=== PATIENT | male | born 1975 | race Caucasian/White ===

== ENCOUNTER 2018-08-04 14:59 | Emergency (ER) | payer MEDICAID ==
[2018-08-04 15:19] VITALS: BP 132/78
--- NOTE | 2018-08-04 15:53 | ER Document Report ---
ED General - General Chief Complaint: Congestion Stated Complaint: COUGH,CONGESTION,BACK PAIN Time Seen by Provider: 08/04/18 15:38 Notes: 42-year-old male here with complaints of cough productive of green sputum subjective fevers chills and low back pain (bilateral) ongoing for the past few days. He states that he feels weak and has minimal appetite due to being sick. His friend is sick with similar symptoms and he feels he may have contracted the illness from his friend. He has a history of walking pneumonia and also states that this feels very similar. He is a former smoker and does not currently smoke. TRAVEL OUTSIDE OF THE [place] IN LAST 30 DAYS: No - Related Data Allergies/Adverse Reactions: ketorolac [From Toradol] Allergy (Verified 08/04/18 15:17) Penicillins Allergy (Verified 08/04/18 15:17) tramadol Allergy (Verified 08/04/18 15:17) acetaminophen [From Tylenol] Adverse Reaction (Verified 08/04/18 15:17) Past Medical History - Social History Smoking Status: Former Smoker Family History: Reviewed & Not Pertinent Review of Systems - Review of Systems Notes: See history of present illness for pertinent positive review of systems; otherwise all review of systems have been reviewed and are negative Physical Exam - Vital signs Vitals: Temp Pulse Resp BP Pulse Ox 98.5 F 79 16 132/78 H 98 08/04/18 15:18 08/04/18 15:18 08/04/18 15:18 08/04/18 15:18 08/04/18 15:18 - Notes Notes: PHYSICAL EXAMINATION: GENERAL: Well-appearing and in no acute distress. HEAD: Atraumatic, normocephalic. EYES: Pupils equal round and reactive to light, extraocular movements intact, sclera anicteric, conjunctiva are normal. ENT: nares patent, oropharynx minimal erythema without tonsillar swelling exudates. Moist mucous membranes. NECK: Normal range of motion, supple without lymphadenopathy LUNGS: CTAB and equal. No wheezes rales or rhonchi. HEART: Regular rate and rhythm without murmurs ABDOMEN: Soft, no tenderness. No facial grimacing/wincing upon palpation. No guarding, no rebound. EXTREMITIES: Normal range of motion, no pitting edema. No cyanosis. NEUROLOGICAL: Cranial nerves grossly intact. Normal sensory/motor exams. PSYCH: Normal mood, normal affect. SKIN: Warm, Dry, normal turgor, no rashes or lesions noted Course - Re-evaluation Re-evalutation: 08/04/18 15:48 MEDICAL DECISION MAKING: Concern for upper respiratory infection, most likely viral Given his history of walking pneumonia, and the productive cough, will prescribe azithromycin Tessalon Instructed patient on fever control with Tylenol and/or (if applicable) Motrin Also discussed keeping hydrated with water or Gatorade/Pedialyte Instructed follow-up PCP next day or few Patient understands and agrees to the plan of care - Vital Signs Vital signs: Temp Pulse Resp BP Pulse Ox 98.5 F 79 16 132/78 H 98 08/04/18 15:18 08/04/18 15:18 08/04/18 15:18 08/04/18 15:18 08/04/18 15:18 Discharge - Discharge Clinical Impression: Acute URI Condition: Good Disposition: HOME, SELF-CARE Additional Instructions: You were seen in the emergency department at [facility]. You likely have an upper respiratory infection, most likely viral, however finish the antibiotics to prevent any bacterial infection. Use Motrin and/or Tylenol for fever control. You may use saline nasal spray for stuffy nose. Stay hydrated. Please followup with your primary physician in the next few days for further management/evaluation. Please return to the emergency department for worsening of symptoms or any symptom that you deem to be concerning or life- threatening. Thank you for allowing us to be part of your care. This is your school/work note for your Emergency Department evaluation today. Prescriptions: Benzonatate [Tessalon Perles 100 mg Capsule] 100 mg PO Q8HP PRN #20 capsule PRN Reason: Azithromycin [Zithromax 250 mg Tablet] 250 mg PO ASDIR PRN #6 tablet PRN Reason:
== END 2018-08-04 15:53 | disposition home or self-care (01) ==
LOC: ER 14:59
DX: J06.9 Acute upper respiratory infection, unspecified (principal); M54.9 Dorsalgia, unspecified; Z88.0 Allergy status to penicillin; Z88.6 Allergy status to analgesic agent
CPT/HCPCS: 99283

== ENCOUNTER 2018-08-04 16:39 | Emergency (ER) | payer MEDICAID ==
[2018-08-04] MEDS ORDERED: NORMAL SALINE 1000 ML 1,000 ML IV ONE (20:10)
[2018-08-04] MEDS ORDERED: ONDANSETRON HCL INJ/PF 4 MG/2 ML SDV IV ONE (20:11)
--- NOTE | 2018-08-04 20:15 | ER Document Report ---
ED General - General Chief Complaint: Chest Pain Stated Complaint: CHEST PAIN Time Seen by Provider: 08/04/18 19:58 Notes: Patient is a 42-year-old male that comes to the emergency department for chief complaint of productive cough and hurting all over for the past 2 days. He states he is also been lightheaded. He states he was seen in triage, discharged with azithromycin and Tessalon for possible pneumonia, he states that when he was leaving he passed out and woke up on his back. He states after the fall he has a lot of pain in his left hip area and it hurts to straighten out his leg. He denies hitting his head or headache. When I ask he denies specific chest pain, states that he just hurts all over. He states he is a former smoker, denies alcohol, denies recreational drugs. He states that he thinks he is dehydrated because he has frequent diarrhea episodes which are ongoing. Past medical history of cholecystectomy, kidney stones, walking pneumonia. Denies medical history otherwise. TRAVEL OUTSIDE OF THE [place] IN LAST 30 DAYS: No - Related Data Allergies/Adverse Reactions: ketorolac [From Toradol] Allergy (Verified 08/04/18 15:17) Penicillins Allergy (Verified 08/04/18 15:17) tramadol Allergy (Verified 08/04/18 15:17) acetaminophen [From Tylenol] Adverse Reaction (Verified 08/04/18 15:17) Past Medical History - General Information source: Patient - Social History Smoking Status: Never Smoker Chew tobacco use (# tins/day): No Frequency of alcohol use: Occasional Drug Abuse: None Lives with: Family Family History: Reviewed & Not Pertinent Patient has suicidal ideation: No Patient has homicidal ideation: No Pulmonary Medical History: Reports: Hx Asthma Endocrine Medical History: Reports: Hx Diabetes Mellitus Type 2 Renal/ Medical History: Denies: Hx Peritoneal Dialysis Past Surgical History: Reports: Hx Cholecystectomy, Hx Orthopedic Surgery Review of Systems - Review of Systems Constitutional: See HPI EENT: See HPI Cardiovascular: See HPI Respiratory: See HPI Gastrointestinal: No symptoms reported Genitourinary: No symptoms reported Male Genitourinary: No symptoms reported Musculoskeletal: See HPI Skin: No symptoms reported Hematologic/Lymphatic: No symptoms reported Neurological/Psychological: See HPI Physical Exam - Vital signs Vitals: Temp Pulse Resp BP Pulse Ox 98.4 F 74 20 133/80 H 98 08/04/18 16:52 08/04/18 16:52 08/04/18 16:52 08/04/18 16:52 08/04/18 16:52 - Notes Notes: GENERAL: Alert, interacts well. Slightly disheveled. HEAD: Normocephalic, atraumatic. EYES: Pupils equal, round, and reactive to light. Extraocular movements intact. ENT: Oral mucosa moist, tongue midline. Oropharynx unremarkable. Airway patent. Mild sinus congestion, no nasal septal hematoma, TM's intact. NECK: Full range of motion. Supple. Trachea midline. LUNGS: Clear to auscultation bilaterally, no wheezes, rales, or rhonchi. No respiratory distress. HEART: Regular rate and rhythm. No murmur ABDOMEN: Soft, non-tender. Non-distended. Bowel sounds present in all 4 quadrants. GENITOURINARY: Deferred EXTREMITIES: Moves all 4 extremities spontaneously. No edema, normal radial and dorsalis pedis pulses bilaterally. No cyanosis. Complains with palpation over the left hip and proximal femur. No swelling or signs of trauma. BACK: no cervical, thoracic, lumbar midline tenderness. No saddle anesthesia, normal distal neurovascular exam. NEUROLOGICAL: Alert and oriented x3. Normal speech. [cranial nerves II through XII grossly intact]. PSYCH: Normal affect, normal mood. SKIN: Warm, dry, normal turgor. No rashes or lesions noted. Course - Re-evaluation Re-evalutation: Patient is vague and difficult to get a clear history out of without a lot of questions. He appears tired but he does not appear to be in distress. I do not see any signs of trauma. He states his hip hurts but I do not see any signs of trauma in this location and have any definite area of tenderness or swelling. He was given a pain medication for this. Patient stating he collapsed, I am not certain that he had a syncopal episode. He does not describe symptoms suggesting cardiac etiology with his generalized pain, lack of shortness of breath. He was given IV fluids and he is not complaining of any dizziness now. EKG sinus rhythm at a rate of 71 with no T wave inversions or ST segment changes in consecutive leads. QTc 435, ID interval 144. CBC unremarkable. Chemistry unremarkable. Troponin is negative. Chest x-ray is unremarkable. Hip x-ray is unremarkable. On reexamination patient is sleeping. He was easily aroused. He is in no distress. His alcohol is negative, his drug screen shows positive marijuana and cocaine. I discussed this with patient. I discussed the extreme dangers of use. I discussed patient's workup in detail. After discussion decision was made to perform the second troponin because of the syncopal episode and if this is normal he will be treated at home with the antibiotic and cough medication he was already prescribed with follow-up instructions and return precautions. Patient states understanding and agreement with this plan. - Vital Signs Vital signs: Temp Pulse Resp BP Pulse Ox 98.6 F 74 18 111/64 100 08/04/18 23:01 08/04/18 16:52 08/05/18 00:02 08/05/18 01:55 08/05/18 01:55 - Laboratory Result Diagrams: 08/04/18 21:13 08/04/18 21:13 Laboratory results interpreted by me: 08/04/18 21:13 Potassium 3.4 L AST 84 H Lipase 22.1 L Discharge - Discharge Clinical Impression: Productive cough, Body aches, Left hip pain Episode of syncope Qualifiers: Syncope type: unspecified Qualified Code(s): R55 - Syncope and collapse Condition: Stable Disposition: HOME, SELF-CARE Additional Instructions: The x-rays do not show any concerning abnormality. Your laboratory workup does not show any concerning abnormality's. Recommendation is to take the azithromycin and Tessalon Perles prescribed earlier for likely viral upper respiratory infection which could develop into pneumonia. Take [id number] Tylenol 1000 mg every 6 hours if needed for pain. Avoid illegal drugs. These are extremely dangerous and continued use will most likely lead to your . Follow-up with primary care. Return to the emergency department for any concerning symptoms, see additional instructions below. Syncopal Episode Syncope (fainting or near-fainting) can occur from many different health problems. Or it can be a simple fainting spell requiring no treatment. It is safe for you to go home, but further evaluation will likely be necessary. Your work-up may include tests for internal bleeding, heart disease, medication problems, or near-strokes. Tests are not always required, however, depending on the nature of your problem. The warning signs of an impending faint include: dizziness, lightheadedness, nausea, hot flashes, tingling, and weakness. If this happens, lay down and put your feet up, then wait until all of these symptoms have passed before standing up again. If these episodes become recurrent, or if you develop chest pain, heart palpitations, mental confusion, blurred vision, or headache, then you should call the physician, or go to the emergency room.
--- NOTE | 2018-08-04 20:34 | EKG REPORT ---
SEVERITY:- NORMAL ECG - SINUS RHYTHM : Confirmed by: Bill Arteaga MD 04-Aug-2018 20:33:57
[2018-08-04 20:47] LABS: APPEARANCE,URINE CLEAR; BILIRUBIN,URINE NEGATIVE (NEGATIVE); COLOR,URINE STRAW; GLUCOSE, URINE NEGATIVE (NEGATIVE); KETONES,URINE NEGATIVE (NEGATIVE); LEUKOCYTE ESTERASE,URINE NEGATIVE (NEGATIVE); NITRITE,URINE NEGATIVE (NEGATIVE); PROTEIN,URINE NEGATIVE (NEGATIVE); URINE SPECIFIC GRAVITY 1.003; UROBILINOGEN,URINE NEGATIVE mg/dL (<2.0)
--- NOTE | 2018-08-04 20:48 | RADIOLOGY REPORT (SQ) ---
EXAM DESCRIPTION: HIP LEFT AP/LATERAL COMPLETED DATE/TIME: 08/04/2018 8:34 pm REASON FOR STUDY: fall, pain COMPARISON: None. NUMBER OF VIEWS: Two views. TECHNIQUE: AP pelvis and additional frog-leg view of the left hip. LIMITATIONS: None. FINDINGS: MINERALIZATION: Normal. LEFT HIP: No fracture or dislocation. No worrisome bone lesions. RIGHT HIP: No fracture or dislocation. No worrisome bone lesions. PUBIS AND ISCHIUM: No fracture. PELVIS: No fracture. SACRUM: No fracture or dislocation. No worrisome bone lesions. LOWER LUMBAR SPINE: No fracture or dislocation. No worrisome bone lesions. No significant disc disea se. SOFT TISSUES: No findings. OTHER: No other significant finding. IMPRESSION: NEGATIVE STUDY OF THE LEFT HIP AND PELVIS. NO RADIOGRAPHIC EVIDENCE OF ACUTE INJURY. TECHNICAL DOCUMENTATION: JOB ID: [id number]- All Rights Reserved Reading location - IP/workstation name: [email or web address]
[2018-08-04 21:02] LABS: URINE AMPHETAMINES SCREEN NEGATIVE; URINE BARBITURATES SCREEN NEGATIVE; URINE BENZODIAZEPINES SCREEN NEGATIVE; URINE COCAINE SCREEN UNCONFIRMED POSITIVE; URINE MARIJUANA (THC) SCREEN UNCONFIRMED POSITIVE; URINE METHADONE SCREEN NEGATIVE; URINE PHENCYCLIDINE SCREEN NEGATIVE
--- NOTE | 2018-08-04 21:09 | RADIOLOGY REPORT (SQ) ---
EXAM DESCRIPTION: XR CHEST 2 VIEWS COMPLETED DATE/TME: 08/04/2018 20:10 CLINICAL HISTORY: 42 years, Male, productive cough COMPARISON: None. NUMBER OF VIEWS: 2 TECHNIQUE: Frontal and lateral views of the chest LIMITATIONS: None. FINDINGS: Heart size is normal. Lungs are clear. No pneumothorax IMPRESSION: Negative chest copyright 2010 [email or web address]- All Rights Reserved
[2018-08-04 21:33] LABS: ABSOLUTE BASOPHILS # (AUTO) 0.1 10^3/uL (0.0-0.2); ABSOLUTE LYMPHOCYTES (AUTO) 2.5 10^3/uL (0.5-4.7); ABSOLUTE MONOCYTES (AUTO) 0.6 10^3/uL (0.1-1.4); ABSOLUTE NEUT (AUTO) 7.1 10^3/uL (1.7-8.2); BASOPHILS % (AUTO) 0.5 % (0-2); EOSINOPHILS % (AUTO) 0.3 % (0-6); HEMATOCRIT 41.6 % (37.9-51.0); HEMOGLOBIN 14.7 g/dL (13.5-17.0); LYMPHOCYTES % (AUTO) 24.7 % (13-45); MEAN CORPUSCULAR HEMOGLOBIN 30.3 pg (27.0-33.4); MEAN CORPUSCULAR HGB CONC 35.3 g/dL (32.0-36.0); MEAN CORPUSCULAR VOLUME 86 fl (80-97); MONOCYTES % (AUTO) 5.6 % (3-13); PLATELET COUNT 194 10^3/uL (150-450); RED BLOOD COUNT 4.85 10^6/uL (4.35-5.55); RED CELL DISTRIBUTION WIDTH 13.1 % (11.5-14.0); SEGMENTED NEUTROPHILS % (AUTO) 68.9 % (42-78); TOTAL CELLS COUNTED % (AUTO) 100 %; WHITE BLOOD COUNT 10.3 10^3/uL (4.0-10.5)
[2018-08-04 21:42] LABS: ALANINE AMINOTRANSFERASE 32 U/L (21-72); ALBUMIN 3.9 g/dL (3.5-5.0); ALKALINE PHOSPHATASE 40 U/L (38-126); ANION GAP 7 (5-19); ASPARTATE AMINO TRANSFERASE 84 U/L (17-59); BILIRUBIN,DIRECT 0.1 mg/dL (0.0-0.4); BILIRUBIN,TOTAL 1.3 mg/dL (0.2-1.3); BLOOD UREA NITROGEN 9 mg/dL (7-20); CALCIUM 8.8 mg/dL (8.4-10.2); CARBON DIOXIDE 30 mmol/L (22-30); CHLORIDE 105 mmol/L (98-107); GLUCOSE 106 mg/dL (75-110); LIPASE 22.1 U/L (23-300); POTASSIUM 3.4 mmol/L (3.6-5.0); SODIUM 141.6 mmol/L (137-145); TOTAL PROTEIN 6.3 g/dL (6.3-8.2)
[2018-08-04 21:43] LABS: ALCOHOL < 10 mg/dL (NONE DETECTED)
[2018-08-05] MEDS ORDERED: HYDROCODONE/ACETAMINOPHEN 5-325 MG TABLET PO ONE (00:28)
[2018-08-05 01:59] VITALS: BP 111/64
== END 2018-08-05 02:01 | disposition home or self-care (01) ==
LOC: ER 16:39
DX: R05 Cough (principal); M79.10 Myalgia, unspecified site; M25.552 Pain in left hip; R55 Syncope and collapse; R07.9 Chest pain, unspecified; Z88.0 Allergy status to penicillin; Z88.6 Allergy status to analgesic agent; E11.9 Type 2 diabetes mellitus without complications; Z90.49 Acquired absence of other specified parts of digestive tract
CPT/HCPCS: 93005; 99285; 96361; 96374; 36415; 80307 ×2; 83690; 85025; 80053; 81001; 84484; 71046; 73502; 93010; J2405; J7030

== ENCOUNTER 2018-09-19 22:52 | Emergency (ER) | payer OTHER, MEDICAID ==
[2018-09-20 00:45] VITALS: BP 142/94
[2018-09-20] MEDS ORDERED: FLUCONAZOLE 100 MG TABLET PO ONE (01:04)
--- NOTE | 2018-09-20 01:06 | ER Document Report ---
ED General - General Chief Complaint: Allergic Reaction Stated Complaint: ALLERGIC REACTION Time Seen by Provider: 09/20/18 00:53 Notes: Patient is a 42-year-old male that comes to the emergency department for chief complaint of left foot pain. He states that for the past several days his foot has become worse, initially had dry cracked skin and then his foot started getting red and painful, he states that he was seen by medical today (patient is an inmate, is here with police escort), states that he was prescribed Bactrim and Keflex, he states that shortly after he took these he had sensation of tightening in his throat and swelling of the tongue but states this passed shortly after. Denies shortness of breath, states he thinks he might of have had a rash on his neck but this passed quickly as well. He states that he has been told in the past he is a diabetic, he is now on insulin for this. Unsure if he has had MRSA or not. TRAVEL OUTSIDE OF THE [place] IN LAST 30 DAYS: No - Related Data Allergies/Adverse Reactions: Penicillins Allergy (Verified 09/20/18 01:13) acetaminophen [From Tylenol] Adverse Reaction (Verified 09/20/18 01:13) tramadol Adverse Reaction (Verified 09/20/18 01:13) Past Medical History - General Information source: Patient - Social History Smoking Status: Never Smoker Drug Abuse: None Lives with: Other - Incarcerated Family History: Reviewed & Not Pertinent Pulmonary Medical History: Reports: Hx Asthma Endocrine Medical History: Reports: Hx Diabetes Mellitus Type 2 Renal/ Medical History: Denies: Hx Peritoneal Dialysis Past Surgical History: Reports: Hx Cholecystectomy, Hx Orthopedic Surgery Review of Systems - Review of Systems Constitutional: No symptoms reported EENT: No symptoms reported Cardiovascular: No symptoms reported Respiratory: No symptoms reported Gastrointestinal: No symptoms reported Genitourinary: No symptoms reported Male Genitourinary: No symptoms reported Musculoskeletal: See HPI Skin: See HPI Hematologic/Lymphatic: No symptoms reported Neurological/Psychological: No symptoms reported Physical Exam - Vital signs Vitals: Temp Pulse Resp BP Pulse Ox 99.0 F 63 16 142/94 H 99 09/20/18 00:43 09/20/18 00:43 09/20/18 00:43 09/20/18 00:43 09/20/18 00:43 - Notes Notes: GENERAL: Alert, interacts well. No acute distress. HEAD: Normocephalic, atraumatic. EYES: Pupils equal, round, and reactive to light. Extraocular movements intact. ENT: Oral mucosa moist, tongue midline. Oropharynx unremarkable. Airway patent. Nares patent, no nasal septal hematoma, TM's intact. NECK: Full range of motion. Supple. Trachea midline. LUNGS: Clear to auscultation bilaterally, no wheezes, rales, or rhonchi. No respiratory distress. HEART: Regular rate and rhythm. No murmur ABDOMEN: Soft, non-tender. Non-distended. Bowel sounds present in all 4 quadrants. GENITOURINARY: Deferred EXTREMITIES: Left foot with a small cracked open wound which is superficial at the base of the great toe over the plantar aspect, there is some surrounding erythema at the foot, there are also some yellowish areas at and around the toes consistent with fungus. No significant pain, no swelling, no spreading redness. Normal capillary refill, sensation, range of motion of the ankle, and leg exam otherwise. BACK: no cervical, thoracic, lumbar midline tenderness. No saddle anesthesia, normal distal neurovascular exam. NEUROLOGICAL: Alert and oriented x3. Normal speech. [cranial nerves II through XII grossly intact]. PSYCH: Normal affect, normal mood. SKIN: Warm, dry, normal turgor. No rashes or lesions noted. Course - Re-evaluation Re-evalutation: Examination consistent with cellulitis, small superficial open wound, and fungal infection. Patient states he just had a negative x-ray earlier today. Tetanus up-to-date. CBC unremarkable, chemistry unremarkable. Unremarkable vital signs, no fever. Discussed treatment with patient. Patient will take the Keflex, antifungal, stop the Bactrim because of questionable allergic reaction symptoms, however I see no evidence of patient's examination. Discussed the reasoning behind this including Bactrim being more likely to cause allergic reactions. Discussed follow-up and return precautions. Patient states understanding and agreement with plan. Stable at time of discharge. - Vital Signs Vital signs: Temp Pulse Resp BP Pulse Ox 99.0 F 63 16 142/94 H 99 09/20/18 00:43 09/20/18 00:43 09/20/18 00:43 09/20/18 00:43 09/20/18 00:43 - Laboratory Result Diagrams: 09/20/18 01:05 02/23/19 01:05 Discharge - Discharge Clinical Impression: Cellulitis of left foot Condition: Stable Disposition: HOME, SELF-CARE Additional Instructions: Your evaluation is consistent with cellulitis of the left foot with additional fungal infection. Keep wound clean and dry, elevate the foot whenever possible, apply the clotrimazole antifungal as prescribed, continue antibiotic. No evidence of allergic reaction is seen on your exam because of the questionable symptoms earlier today you could avoid taking the Bactrim which could be the cause although this is not definite. Return if you worsen in any way including discolored drainage from the wound, spreading redness, fever of 100.4 or greater, any other concerning or worsening symptoms. Prescriptions: Clotrimazole [Athletic Foot Cream] 1 applic TP ASDIR PRN #1 cream..g. PRN Reason:
[2018-09-20 01:18] LABS: ABSOLUTE BASOPHILS # (AUTO) 0.1 10^3/uL (0.0-0.2); ABSOLUTE EOSINOPHILS # (AUTO) 0.2 10^3/uL (0.0-0.6); ABSOLUTE MONOCYTES (AUTO) 0.5 10^3/uL (0.1-1.4); BASOPHILS % (AUTO) 0.9 % (0-2); EOSINOPHILS % (AUTO) 1.9 % (0-6); HEMATOCRIT 43.3 % (37.9-51.0); HEMOGLOBIN 15.5 g/dL (13.5-17.0); LYMPHOCYTES % (AUTO) 34.5 % (13-45); MEAN CORPUSCULAR HEMOGLOBIN 30.1 pg (27.0-33.4); MEAN CORPUSCULAR HGB CONC 35.7 g/dL (32.0-36.0); MEAN CORPUSCULAR VOLUME 84 fl (80-97); MONOCYTES % (AUTO) 5.7 % (3-13); PLATELET COUNT 172 10^3/uL (150-450); RED BLOOD COUNT 5.13 10^6/uL (4.35-5.55); RED CELL DISTRIBUTION WIDTH 12.5 % (11.5-14.0); TOTAL CELLS COUNTED % (AUTO) 100 %; WHITE BLOOD COUNT 8.7 10^3/uL (4.0-10.5)
[2018-09-20] MEDS ORDERED: KETOROLAC TROMETHAMINE 60 MG/2 ML SDV IM ONE (01:27)
[2018-09-20 01:29] LABS: ANION GAP 10 (5-19); BLOOD UREA NITROGEN 12 mg/dL (7-20); CALCIUM 9.7 mg/dL (8.4-10.2); CARBON DIOXIDE 30 mmol/L (22-30); CHLORIDE 104 mmol/L (98-107); GLUCOSE 103 mg/dL (75-110); POTASSIUM 4.3 mmol/L (3.6-5.0)
== END 2018-09-20 02:22 | disposition home or self-care (01) ==
LOC: ER 22:52
DX: L03.116 Cellulitis of left lower limb (principal); E11.9 Type 2 diabetes mellitus without complications; Z88.0 Allergy status to penicillin; Z88.6 Allergy status to analgesic agent; Z90.49 Acquired absence of other specified parts of digestive tract; Z79.4 Long term (current) use of insulin
CPT/HCPCS: 99283; 96372; 36415; 85025; 80048; J1885

== ENCOUNTER 2018-10-05 10:48 | Emergency (ER) | payer MEDICAID ==
[2018-10-05 10:59] VITALS: BP 118/78
[2018-10-05] MEDS ORDERED: IBUPROFEN 800 MG TABLET PO ONE (11:04)
--- NOTE | 2018-10-05 11:07 | ER Document Report ---
ED Medical Screen (RME) - General Chief Complaint: Swelling of Lower Extremity Stated Complaint: LEG/FOOT/BACK PAIN Time Seen by Provider: 10/05/18 11:03 Mode of Arrival: Wheelchair Information source: Patient TRAVEL OUTSIDE OF THE [place] IN LAST 30 DAYS: No - HPI Patient complains to provider of: L leg pain, swelling Onset: Yesterday - pt seen here last month with cellulitis L foot now with recurrent L foot and lower leg pain and swelling. - Related Data Allergies/Adverse Reactions: Penicillins Allergy (Verified 09/20/18 01:13) acetaminophen [From Tylenol] Adverse Reaction (Verified 09/20/18 01:13) tramadol Adverse Reaction (Verified 09/20/18 01:13) Past Medical History - Social History Chew tobacco use (# tins/day): Yes - 1 Pulmonary Medical History: Reports: Hx Asthma Endocrine Medical History: Reports: Hx Diabetes Mellitus Type 2 Renal/ Medical History: Denies: Hx Peritoneal Dialysis Past Surgical History: Reports: Hx Cholecystectomy, Hx Orthopedic Surgery Physical Exam - Vital signs Vitals: Temp Pulse Resp BP Pulse Ox 98.7 F 98 18 118/78 97 10/05/18 10:57 10/05/18 10:57 10/05/18 10:57 10/05/18 10:57 10/05/18 10:57 Course - Vital Signs Vital signs: Temp Pulse Resp BP Pulse Ox 98.7 F 98 18 118/78 97 10/05/18 10:57 10/05/18 10:57 10/05/18 10:57 10/05/18 10:57 10/05/18 10:57
[2018-10-05] MEDS ORDERED: HYDROMORPHONE HCL INJ/PF 2 MG/ML AMPULE IM ONE (11:36)
[2018-10-05] MEDS ORDERED: LIDOCAINE 5% (700 MG) TRANSDERMAL ADH..PATCH TP ONE (11:37)
[2018-10-05] MEDS ORDERED: KETOROLAC TROMETHAMINE 60 MG/2 ML SDV IM ONE (11:37)
--- NOTE | 2018-10-05 11:44 | ER Document Report ---
ED General - General Chief Complaint: Swelling of Lower Extremity Stated Complaint: LEG/FOOT/BACK PAIN Time Seen by Provider: 10/05/18 11:03 Primary Care Provider: [facility] SARAH,KATHIE [NO LOCAL MD] - Follow up in 3-5 days OSVALDO MAKI MD [ACTIVE STAFF] - Follow up in 3-5 days Mode of Arrival: Wheelchair Information source: Patient, [facility] Records Notes: 42-year-old male with chronic back pain, asthma, admitted cocaine use presents with complaint of left lower extremity pain and left low back pain. Patient has a history of degenerative disc disease. He states that his back pain started 1 day prior to arrival. He describes it as a throbbing pain in his left buttocks with radiating pain down the posterior aspect of the left leg. Patient denies any recent injury. He states that surgery has been discussed in the past but is not scheduled. Patient was recently treated for cellulitis in August 2018. He denies any fever, chills, chest pain, shortness of breath, leg swelling. He does have some left foot swelling which he states is chronic and occurs intermittently. Patient denies fever, midline tenderness, IV drug use, saddle anesthesia, urinary retention, fecal incontinence. He states pain is exacerbated with sitting and lying flat and improved when he stands and begins walking. TRAVEL OUTSIDE OF THE [place] IN LAST 30 DAYS: No - HPI Onset: Yesterday Onset/Duration: Gradual, Persistent Quality of pain: Throbbing Severity: Moderate Pain Level: 3 Associated symptoms: denies: Chest pain, Productive cough, Fever, Hurts to breath, Leg swelling, Shortness of breath, Weakness Exacerbated by: Supine, Sitting Relieved by: Other - Standing, walking Similar symptoms previously: Yes Recently seen / treated by doctor: No - Related Data Allergies/Adverse Reactions: Penicillins Allergy (Verified 09/20/18 01:13) acetaminophen [From Tylenol] Adverse Reaction (Verified 09/20/18 01:13) tramadol Adverse Reaction (Verified 09/20/18 01:13) Past Medical History - General Information source: Patient - Social History Smoking Status: Never Smoker Chew tobacco use (# tins/day): Yes - 1 Frequency of alcohol use: Occasional Drug Abuse: Cocaine Lives with: Alone Family History: Reviewed & Not Pertinent Patient has suicidal ideation: No Patient has homicidal ideation: No Pulmonary Medical History: Reports: Hx Asthma Endocrine Medical History: Reports: Hx Diabetes Mellitus Type 2 Renal/ Medical History: Denies: Hx Peritoneal Dialysis Past Surgical History: Reports: Hx Cholecystectomy, Hx Orthopedic Surgery Review of Systems - Review of Systems Notes: REVIEW OF SYSTEMS: CONSTITUTIONAL : Denies fever, chills, or sweats. Denies recent illness. Denies weight loss, recent hospitalizations. EENT: Denies visual changes, eye pain. Denies sore throat, oral lesions, difficulty swallowing. CARDIOVASCULAR: Denies chest pain. Denies palpitations. Denies lower extremity edema. RESPIRATORY: Denies cough. Denies shortness of breath, wheezing. GASTROINTESTINAL: Denies abdominal pain or distention. Denies nausea, vomiting, or diarrhea. Denies blood in vomitus, stools, or per rectum. Denies black, tarry stools. Denies constipation. GENITOURINARY: Denies difficulty urinating, painful urination, frequency, blood in urine, testicular pain or penile discharge. MUSCULOSKELETAL: Denies neck pain or stiffness. Denies joint pain. SKIN: Denies rash, lesions or sores. HEMATOLOGIC : Denies easy bruising or bleeding. LYMPHATIC: Denies swollen glands. NEUROLOGICAL: Denies confusion or altered mental status. Denies loss of consciousness. Denies dizziness or lightheadedness. Denies headache. Denies weakness or paralysis. Denies problems difficulty with ambulation, slurred speech. Denies sensory loss, numbness, or tingling. Denies seizures. PSYCHIATRIC: Denies anxiety or stress. Denies depression, suicidal ideation, or Physical Exam - Vital signs Vitals: Temp Pulse Resp BP Pulse Ox 98.7 F 98 18 118/78 97 10/05/18 10:57 10/05/18 10:57 10/05/18 10:57 10/05/18 10:57 10/05/18 10:57 - Notes Notes: PHYSICAL EXAMINATION: GENERAL: Well-appearing, well-nourished and in no acute distress. HEAD: Atraumatic, normocephalic. EYES: Pupils equal round and reactive to light, extraocular movements intact, sc jeremias anicteric, conjunctiva are normal. ENT: Nares patent, oropharynx clear without exudates. Moist mucous membranes. NECK: Normal range of motion, supple without lymphadenopathy LUNGS: Breath sounds clear to auscultation bilaterally and equal. No wheezes rales or rhonchi. HEART: Regular rate and rhythm without murmurs ABDOMEN: Soft, nontender, nondistended abdomen. No guarding, no rebound. No masses appreciated. Musculoskeletal: Normal range of motion, no pitting or edema. No cyanosis. Tenderness with palpation to the left sciatic notch. Patient able to ambulate without difficulty. He is able to go up on his toes and up on his heels. NEUROLOGICAL: Cranial nerves grossly intact. Normal speech, normal gait. Normal sensory, motor exams. Straight leg raise positive on the left. PSYCH: Normal mood, normal affect. SKIN: Warm, Dry, normal turgor, no rashes or lesions noted. Course - Re-evaluation Re-evalutation: Laboratory 10/05/18 10/05/18 10/05/18 11:07 11:15 11:15 WBC 11.3 H RBC 5.22 Hgb 15.5 Hct 43.7 MCV 84 MCH 29.6 MCHC 35.4 RDW 12.8 Plt Count 169 Seg Neutrophils % 69.6 Lymphocytes % 22.1 Monocytes % 6.6 Eosinophils % 0.9 Basophils % 0.8 Absolute Neutrophils 7.9 Absolute Lymphocytes 2.5 Absolute Monocytes 0.7 Absolute Eosinophils 0.1 Absolute Basophils 0.1 Sodium 136.5 L Potassium 3.6 Chloride 100 Carbon Dioxide 24 Anion Gap 13 BUN 19 Creatinine 1.05 Est GFR ( Amer) > 60 Est GFR (Non-Af Amer) > 60 Glucose 234 H Calcium 8.7 Total Bilirubin 0.8 Direct Bilirubin 0.1 Neonat Total Bilirubin Not Reportable Neonat Direct Bilirubin Not Reportable Neonat Indirect Bili Not Reportable AST 1148 H ALT 353 H Alkaline Phosphatase 63 Total Protein 6.4 Albumin 4.1 Urine Color YELLOW Urine Appearance SLIGHTLY-CLOUDY Urine pH 5.0 Ur Specific Boaz 1.027 Urine Protein NEGATIVE Urine Glucose (UA) 50 H Urine Ketones NEGATIVE Urine Blood SMALL H Urine Nitrite NEGATIVE Urine Bilirubin NEGATIVE Urine Urobilinogen NEGATIVE Ur Leukocyte Esterase NEGATIVE Urine WBC (Auto) 2 Urine RBC (Auto) 0 Urine Bacteria (Auto) TRACE Squamous Epi Cells Auto <1 Urine Mucus (Auto) OCC Urine Ascorbic Acid NEGATIVE Lumbar Spine X-Ray 10/05/18 11:44 IMPRESSION: Lumbar spondylosis. Minimal degenerative disc disease L4-S1. Temp Pulse Resp BP Pulse Ox 98.7 F 98 18 118/78 97 10/05/18 10:57 10/05/18 10:57 10/05/18 10:57 10/05/18 10:57 10/05/18 10:57 42-year-old male presents with left lower back pain which is chronic for him. Denies fever, saddle anesthesia, lower extremity weakness, urinary retention or fecal incontinence. Admits to recent cocaine use. Patient was given IM Dilaudid, IM Toradol and a lidocaine patch. On reevaluation he states that pain is not improved but I do not think I will be the one that solved his chronic 10- year back issue. Patient was made aware of his elevate enzymes and advised to sustain from alcohol use, cocaine use. GI follow-up was recommended. Patient was discharged home in stable condition. 10/05/18 12:48 Labs ordered by the physician in triage show an elevated AST. The ratio is 3-1 indicative of alcoholic hepatitis. Patient has no right upper quadrant or epigastric abdominal pain. He does admit to heavy alcohol use, cocaine use. Will recommend GI follow-up and repeat labs in a few weeks. 10/06/18 13:00 - Vital Signs Vital signs: Temp Pulse Resp BP Pulse Ox 98.7 F 98 18 118/78 97 10/05/18 10:57 10/05/18 10:57 10/05/18 10:57 10/05/18 10:57 10/05/18 10:57 - Laboratory Result Diagrams: 10/05/18 11:15 10/05/18 11:15 Laboratory results interpreted by me: 10/05/18 10/05/18 10/05/18 11:07 11:15 11:15 WBC 11.3 H Sodium 136.5 L Glucose 234 H AST 1148 H ALT 353 H Urine Glucose (UA) 50 H Urine Blood SMALL H - Diagnostic Test Radiology reviewed: Image reviewed, Reports reviewed Discharge - Discharge Clinical Impression: Elevated LFTs Degenerative disc disease Qualifiers: Spinal region: lumbar Qualified Code(s): M51.36 - Other intervertebral disc degeneration, lumbar region Low back pain with sciatica Qualifiers: Chronicity: chronic Back pain laterality: left Sciatica laterality: sciatica of left side Qualified Code(s): M54.42 - Lumbago with sciatica, left side Alcoholic hepatitis Qualifiers: Ascites presence: unspecified Qualified Code(s): K70.10 - Alcoholic hepatitis without ascites Condition: Good Disposition: HOME, SELF-CARE Instructions: Liver Function Abnormality ([facility]) Additional Instructions: You have been seen in the Emergency Department (ED) today for back pain. Your workup and exam have not shown any acute abnormalities and you are likely suffering from muscle strain or possible problems with your discs, but there is no treatment that will fix your symptoms at this time. Please take the naproxen that has been prescribed as directed. You should also purchase a local lidocaine cream such as "aspercreme with lidocaine" and use per bottle instructions to the affected area. Apply heat to the area as often as you are able. Continue to keep active and avoid prolonged periods of bed rest. Please follow up with your doctor as soon as possible regarding today's ED visit and your back pain. Return to the ED for worsening back pain, fever, weakness or numbness of either leg, or if you develop either (1) an inability to urinate or have bowel movements, or (2) loss of your ability to control your bathroom functions (if you start having "accidents"), or if you develop other new symptoms that concern you.concern you. Your liver enzymes are elevated today. This is likely secondary to your alcohol use. Please sustain from alcohol and cocaine use. Please follow-up with the media promoter that I have referred you to or your primary care physician Prescriptions: Lidocaine [Lidoderm 5% (700 mg) Transdermal Patch] 1 patch TP DAILY #7 adh..patch Referrals: OSVALDO MAKI MD [ACTIVE STAFF] - Follow up in 3-5 days [facility],KATHIE [NO LOCAL MD] - Follow up in 3-5 days
[2018-10-05 11:49] LABS: ABSOLUTE BASOPHILS # (AUTO) 0.1 10^3/uL (0.0-0.2); ABSOLUTE EOSINOPHILS # (AUTO) 0.1 10^3/uL (0.0-0.6); ABSOLUTE LYMPHOCYTES (AUTO) 2.5 10^3/uL (0.5-4.7); ABSOLUTE MONOCYTES (AUTO) 0.7 10^3/uL (0.1-1.4); ABSOLUTE NEUT (AUTO) 7.9 10^3/uL (1.7-8.2); BASOPHILS % (AUTO) 0.8 % (0-2); EOSINOPHILS % (AUTO) 0.9 % (0-6); HEMATOCRIT 43.7 % (37.9-51.0); HEMOGLOBIN 15.5 g/dL (13.5-17.0); LYMPHOCYTES % (AUTO) 22.1 % (13-45); MEAN CORPUSCULAR HEMOGLOBIN 29.6 pg (27.0-33.4); MEAN CORPUSCULAR HGB CONC 35.4 g/dL (32.0-36.0); MEAN CORPUSCULAR VOLUME 84 fl (80-97); MONOCYTES % (AUTO) 6.6 % (3-13); PLATELET COUNT 169 10^3/uL (150-450); RED BLOOD COUNT 5.22 10^6/uL (4.35-5.55); RED CELL DISTRIBUTION WIDTH 12.8 % (11.5-14.0); SEGMENTED NEUTROPHILS % (AUTO) 69.6 % (42-78); TOTAL CELLS COUNTED % (AUTO) 100 %; WHITE BLOOD COUNT 11.3 10^3/uL (4.0-10.5)
[2018-10-05 12:00] LABS: APPEARANCE,URINE SLIGHTLY-CLOUDY; BILIRUBIN,URINE NEGATIVE (NEGATIVE); COLOR,URINE YELLOW; GLUCOSE, URINE 50 mg/dL (NEGATIVE); KETONES,URINE NEGATIVE (NEGATIVE); LEUKOCYTE ESTERASE,URINE NEGATIVE (NEGATIVE); NITRITE,URINE NEGATIVE (NEGATIVE); PROTEIN,URINE NEGATIVE (NEGATIVE); URINE SPECIFIC GRAVITY 1.027; UROBILINOGEN,URINE NEGATIVE mg/dL (<2.0)
[2018-10-05 12:06] LABS: ALANINE AMINOTRANSFERASE 353 U/L (21-72); ALBUMIN 4.1 g/dL (3.5-5.0); ALKALINE PHOSPHATASE 63 U/L (38-126); ANION GAP 13 (5-19); BILIRUBIN,DIRECT 0.1 mg/dL (0.0-0.4); BILIRUBIN,TOTAL 0.8 mg/dL (0.2-1.3); BLOOD UREA NITROGEN 19 mg/dL (7-20); CALCIUM 8.7 mg/dL (8.4-10.2); CARBON DIOXIDE 24 mmol/L (22-30); CHLORIDE 100 mmol/L (98-107); GLUCOSE 234 mg/dL (75-110); POTASSIUM 3.6 mmol/L (3.6-5.0); SODIUM 136.5 mmol/L (137-145); TOTAL PROTEIN 6.4 g/dL (6.3-8.2)
[2018-10-05 12:12] LABS: ASPARTATE AMINO TRANSFERASE 1148 U/L (17-59)
--- NOTE | 2018-10-05 13:01 | RADIOLOGY REPORT (SQ) ---
EXAM DESCRIPTION: L SPINE WHOLE COMPLETED DATE/TIME: 10/05/2018 12:27 pm REASON FOR STUDY: LBP COMPARISON: None. NUMBER OF VIEWS: Five views including obliques. TECHNIQUE: AP, lateral, oblique, and sacral radiographic images acquired of the lumbar spine. LIMITATIONS: None. FINDINGS: MINERALIZATION: Normal. SEGMENTATION: Normal. No transitional anatomy. ALIGNMENT: Normal. VERTEBRAE: 5 non rib-bearing lumbar type vertebra with marginal osteophyte formation multiple levels consistent lumbar spondylosis. . DISCS: Disc space narrowing noted at L5-S1 and to a lesser degree at L4-5 consistent with degenerativ e disc disease. POSTERIOR ELEMENTS: No spondylolysis or spondylolisthesis. PARASPINAL SOFT TISSUES: Normal. PELVIS: Intact as visualized. No fractures or worrisome bone lesions. SI joints intact. MISCELLANEOUS: Surgical clips right upper quadrant. IMPRESSION: Lumbar spondylosis. Minimal degenerative disc disease L4-S1. TECHNICAL DOCUMENTATION: JOB ID: [id number] [id number] 2010 [employer]- All Rights Reserved Reading location - IP/workstation name: [email or web address]
== END 2018-10-05 14:11 | disposition home or self-care (01) ==
LOC: ER 10:48
DX: K70.10 Alcoholic hepatitis without ascites (principal); M51.36 Other intervertebral disc degeneration, lumbar region; M54.42 Lumbago with sciatica, left side; R94.5 Abnormal results of liver function studies; R22.42 Localized swelling, mass and lump, left lower limb; E11.9 Type 2 diabetes mellitus without complications; Z88.0 Allergy status to penicillin; Z88.6 Allergy status to analgesic agent; Z90.49 Acquired absence of other specified parts of digestive tract
CPT/HCPCS: 99283; 96372; 36415; 85025; 80053; 81001; 72110; J3490 ×2; J1885; J1170

== ENCOUNTER 2019-07-12 12:59 | Emergency (ER) | payer MEDICAID ==
[2019-07-12 13:26] VITALS: BP 147/83
--- NOTE | 2019-07-12 13:43 | ER Document Report ---
ED Medical Screen (RME) - General Chief Complaint: Abscess Stated Complaint: HEAD ASBCESS Time Seen by Provider: 07/12/19 13:34 Primary Care Provider: SOY ARMSTRONG MD [Primary Care Provider] - Follow up as needed Mode of Arrival: Ambulatory Information source: Patient Notes: 43-year-old male presents emergency department with complaints of abscess to the back of his head for the past 4 days. Patient reports he has had several of these lanced. Reports his pain focused on the back of his neck. He wants it lanced right now. Erythema noted with induration no pustule no fluctuance. I have greeted and performed a rapid initial assessment of this patient. A comprehensive ED assessment and evaluation of the patient, analysis of test results and completion of the medical decision making process will be conducted by additional ED providers. Dictation of this chart was performed using voice recognition software; therefore, there may be some unintended grammatical errors. TRAVEL OUTSIDE OF THE [place] IN LAST 30 DAYS: No - Related Data Allergies/Adverse Reactions: Penicillins Allergy (Severe, Verified 07/12/19 13:36) ketorolac tromethamine [From Toradol] Allergy (Verified 07/12/19 13:36) acetaminophen [From Tylenol] Adverse Reaction (Mild, Verified 07/12/19 13:36) Nausea codeine [Codeine] Adverse Reaction (Verified 07/12/19 13:36) Nausea tramadol [Tramadol] Adverse Reaction (Verified 07/12/19 13:36) Nausea tramadol HCl [From Ultram] Adverse Reaction (Verified 07/12/19 13:36) Nausea Past Medical History - Social History Chew tobacco use (# tins/day): Yes Drug Abuse: None Family history: Reviewed & Not Pertinent - Past Medical History Cardiac Medical History: Reports: Hx Hypertension Denies: Hx Heart Attack, Hx Hypercholesterolemia, Hx Peripheral Vascular Disease Pulmonary Medical History: Reports: Hx Asthma Denies: Hx Tuberculosis Endocrine Medical History: Reports: Hx Diabetes Mellitus Type 1, Hx Diabetes Mellitus Type 2 Renal/ Medical History: Reports: Hx Kidney Stones. Denies: Hx Peritoneal Dialysis GI Medical History: Reports: Hx Gastroesophageal Reflux Disease Musculoskeltal Medical History: Reports Hx Arthritis - chronic back pain Skin Medical History: Reports Hx MRSA Psychiatric Medical History: Reports: Hx Anxiety, Hx Attention Deficit Hyperactivity Disorder, Hx Bipolar Disorder, Hx Depression, Hx Schizophrenia Past Surgical History: Reports: Hx Cholecystectomy, Hx Orthopedic Surgery - r pinkie, L leg fx as child - Immunizations Hx Diphtheria, Pertussis, Tetanus Vaccination: Yes - 11/01/12 Physical Exam - Vital signs Vitals: Temp Pulse Resp BP Pulse Ox 98.9 F 96 18 147/83 H 97 07/12/19 13:25 07/12/19 13:25 07/12/19 13:25 07/12/19 13:25 07/12/19 13:25 Course - Vital Signs Vital signs: Temp Pulse Resp BP Pulse Ox 98.9 F 96 18 147/83 H 97 07/12/19 13:27 07/12/19 13:25 07/12/19 13:27 07/12/19 13:25 07/12/19 13:27 Doctor's Discharge - Discharge Referrals: SOY ARMSTRONG MD [Primary Care Provider] - Follow up as needed
== END 2019-07-12 14:05 | disposition left against medical advice (07) ==
LOC: ER 12:59 → MERGE 12:59 → ER 14:05
DX: Z53.21 Procedure and treatment not carried out due to patient leaving prior to being seen by health care provider (principal); L02.811 Cutaneous abscess of head [any part, except face]; I10 Essential (primary) hypertension; E11.9 Type 2 diabetes mellitus without complications
CPT/HCPCS: 99281

== ENCOUNTER 2019-07-13 10:44 | Emergency (ER) | payer MEDICAID ==
[2019-07-13 11:20] VITALS: BP 143/90
[2019-07-13] MEDS ORDERED: ACETAMINOPHEN 325 MG TABLET PO ONE (13:30)
--- NOTE | 2019-07-13 13:33 | ER Document Report ---
ED Medical Screen (RME) - General Chief Complaint: Abscess Stated Complaint: HEAD AND NECK PAIN Time Seen by Provider: 07/13/19 13:23 Notes: Patient is a 43-year-old male who presents emergency department with a chief complaint of abscess. Patient reports he has had a possible abscess to the back of his head and neck for about 6 days. Patient denies drainage. Patient reports he has had multiple abscesses required incision and drainage to the back of his head. Patient reports he did go to surgery one time and required anesthesia. Patient reports chills and nausea. Patient reports a history of MRSA. Patient reports he does have a history of diabetes but that after losing weight he was cleared of this and does not take any medications. TRAVEL OUTSIDE OF THE [place] IN LAST 30 DAYS: No - Related Data Allergies/Adverse Reactions: sulfamethoxazole [From Bactrim] Allergy (Severe, Verified 07/13/19 13:18) Swelling of Throat trimethoprim [From Bactrim] Allergy (Severe, Verified 07/13/19 13:18) Swelling of Throat Penicillins Allergy (Verified 09/20/18 01:13) acetaminophen [From Tylenol] Adverse Reaction (Verified 09/20/18 01:13) tramadol Adverse Reaction (Verified 09/20/18 01:13) Past Medical History - Social History Chew tobacco use (# tins/day): Yes - 1-2 CAN PER DAY Frequency of alcohol use: None Drug Abuse: None Pulmonary Medical History: Reports: Hx Asthma Endocrine Medical History: Reports: Hx Diabetes Mellitus Type 2 Renal/ Medical History: Denies: Hx Peritoneal Dialysis Past Surgical History: Reports: Hx Cholecystectomy, Hx Orthopedic Surgery Physical Exam - Vital signs Vitals: Temp Pulse Resp BP Pulse Ox 98.6 F 92 20 143/90 H 100 07/13/19 11:19 07/13/19 11:19 07/13/19 11:19 07/13/19 11:19 07/13/19 11:19 - HEENT Notes: Patient has a large firm tender area to the back of the head. There is no drainage. Course - Re-evaluation Re-evalutation: 07/13/19 13:33 We will obtain basic labs and an ultrasound. Patient reports he can take Tylenol he can does not take it for long periods of time as it does upset his stomach. I have greeted and performed a rapid initial assessment of this patient. A comprehensive ED assessment and evaluation of the patient, analysis of test results and completion of the medical decision making process will be conducted by additional ED providers. - Vital Signs Vital signs: Temp Pulse Resp BP Pulse Ox 98.6 F 92 20 143/90 H 100 07/13/19 13:19 07/13/19 11:19 07/13/19 13:19 07/13/19 11:19 07/13/19 13:19
[2019-07-13] MEDS ORDERED: HYDROCODONE/ACETAMINOPHEN 5-325 MG TABLET PO ONE (13:48)
[2019-07-13 14:12] LABS: ABSOLUTE BASOPHILS # (AUTO) 0.1 10^3/uL (0.0-0.2); ABSOLUTE EOSINOPHILS # (AUTO) 0.1 10^3/uL (0.0-0.6); ABSOLUTE MONOCYTES (AUTO) 0.9 10^3/uL (0.1-1.4); ABSOLUTE NEUT (AUTO) 10.1 10^3/uL (1.7-8.2); BASOPHILS % (AUTO) 0.6 % (0-2); EOSINOPHILS % (AUTO) 0.7 % (0-6); HEMATOCRIT 44.2 % (37.9-51.0); HEMOGLOBIN 15.2 g/dL (13.5-17.0); LYMPHOCYTES % (AUTO) 15.2 % (13-45); MEAN CORPUSCULAR HGB CONC 34.5 g/dL (32.0-36.0); MEAN CORPUSCULAR VOLUME 84 fl (80-97); MONOCYTES % (AUTO) 6.7 % (3-13); PLATELET COUNT 181 10^3/uL (150-450); RED BLOOD COUNT 5.26 10^6/uL (4.35-5.55); RED CELL DISTRIBUTION WIDTH 13.6 % (11.5-14.0); SEGMENTED NEUTROPHILS % (AUTO) 76.8 % (42-78); TOTAL CELLS COUNTED % (AUTO) 100 %; WHITE BLOOD COUNT 13.1 10^3/uL (4.0-10.5)
[2019-07-13 14:29] LABS: ANION GAP 11 (5-19); BLOOD UREA NITROGEN 11 mg/dL (7-20); CALCIUM 9.4 mg/dL (8.4-10.2); CARBON DIOXIDE 27 mmol/L (22-30); CHLORIDE 101 mmol/L (98-107); GLUCOSE 217 mg/dL (75-110)
--- NOTE | 2019-07-13 14:58 | RADIOLOGY REPORT (SQ) ---
EXAM DESCRIPTION: U/S THYROID/SFT TISS HD NECK COMPLETED DATE/TIME: 07/13/2019 2:26 pm REASON FOR STUDY: abscess back of neck COMPARISON: None. TECHNIQUE: Dynamic and static grayscale images acquired of the localized site of clinical concern an d recorded on PACS. Additional selected color Doppler and spectral images recorded. SITE OF CONCERN: Posterior soft tissues about the base of the skull LIMITATIONS: None. FINDINGS: Targeted ultrasound examination of the posterior soft tissues about the base of the skull reveals no evidence of fluid collection or other soft tissue abnormality. Consider CT or MRI to furt her evaluate abscess remains suspected. IMPRESSION: Targeted ultrasound examination of the posterior soft tissues about the base of the skul l reveals no evidence of fluid collection or other soft tissue abnormality. Consider CT or MRI to fur ther evaluate abscess remains suspected. TECHNICAL DOCUMENTATION: JOB ID: [id number] [employer]- All Rights Reserved Reading location - IP/workstation name: [email or web address]
[2019-07-13] MEDS ORDERED: MORPHINE SULFATE 10 MG/ML INJ IV ONE ×2 (16:21→19:08)
[2019-07-13] MEDS ORDERED: ONDANSETRON HCL INJ/PF 4 MG/2 ML SDV IV ONE (16:22)
--- NOTE | 2019-07-13 17:38 | RADIOLOGY REPORT (SQ) ---
EXAM DESCRIPTION: CT SOFT TISSUE NECK WITH COMPLETED DATE/TIME: 07/13/2019 5:06 pm REASON FOR STUDY: occipital swelling/please image entire area COMPARISON: None. TECHNIQUE: Post IV contrasted scanning from skull base through lung apices with review of bone, soft tissue and lung windows. Reconstructed coronal and sagittal MPR images reviewed. All images stored on PACS. All CT scanners at this facility use dose modulation, iterative reconstruction, and/or weight based d osing when appropriate to reduce radiation dose to as low as reasonably achievable (ALARA). [facility]: Dose Right [facility]: CareDose [facility]: Dose Right [facility]: Teradose 4D [facility]: Signicat CONTRAST TYPE AND DOSE: contrast/concentration: Isovue 350.00 mg/ml; Total Contrast Delivered: 75.0 ml; Total Saline Delivered: 55.0 ml RENAL FUNCTION: BUN 11 creatinine 0.8. RADIATION DOSE: CT Rad equipment meets quality standard of care and radiation dose reduction techniq ues were employed. CTDIvol: 17.3 mGy. DLP: 545 mGy-cm. . LIMITATIONS: None. FINDINGS: SKULL BASE: Intact. MAJOR SALIVARY GLANDS: No solid or cystic masses. No inflammatory changes. LYMPHADENOPATHY: No adenopathy. MUCOSAL MASSES OR ASYMMETRY: No mucosal masses or asymmetry. LARYNX/CORDS: No abnormal findings. VASCULAR STRUCTURES: The major vessels are patent. LUNG APICES: Clear. BONES: Intact. THYROID: Normal size. No masses. PARANASAL SINUSES: Clear. OTHER: Diffuse stranding in the subcutaneous tissues of the posterior occipital scalp and posterior n sheryl. Diffuse skin thickening. A few small lymph nodes. No abnormal fluid collection. IMPRESSION: DIFFUSE SKIN THICKENING AND EDEMA/INFLAMMATION IN THE SUBCUTANEOUS FATTY TISSUES OF THE POSTERIOR OCCIPITAL SCALP AND POSTERIOR NECK. NONSPECIFIC BUT MAY BE DUE TO CELLULITIS/SOFT TISSUE IN FECTION. NO EVIDENCE OF ABSCESS. NO SOFT TISSUE MASS. NO OTHER SIGNIFICANT FINDING IN THE SOFT TIS SUES OF THE NECK. TECHNICAL DOCUMENTATION: JOB ID: [id number] Quality ID # [id number]: Final reports with documentation of one or more dose reduction techniques (e.g., Au tomated exposure control, adjustment of the mA and/or kV according to patient size, use of iterative reconstruction technique) 2010 [employer]- All Rights Reserved Reading location - IP/workstation name: [email or web address]
--- NOTE | 2019-07-13 18:42 | ER Document Report ---
ED General - General Chief Complaint: Abscess Stated Complaint: HEAD AND NECK PAIN Time Seen by Provider: 07/13/19 13:23 Mode of Arrival: Ambulatory Information source: Patient TRAVEL OUTSIDE OF THE [place] IN LAST 30 DAYS: No - HPI Notes: Patient comes in from home complaining of occipital head pain. It is constant and throbbing. It is moderate to severe. It is worse with being touched and better if left alone. It does radiate into his neck. He states he has had multiple abscesses in this location before. No fevers. No drainage of pus. - Related Data Allergies/Adverse Reactions: sulfamethoxazole [From Bactrim] Allergy (Severe, Verified 07/13/19 13:18) Swelling of Throat trimethoprim [From Bactrim] Allergy (Severe, Verified 07/13/19 13:18) Swelling of Throat Penicillins Allergy (Verified 09/20/18 01:13) acetaminophen [From Tylenol] Adverse Reaction (Verified 09/20/18 01:13) tramadol Adverse Reaction (Verified 09/20/18 01:13) Past Medical History - General Information source: Patient - Social History Smoking Status: Former Smoker Chew tobacco use (# tins/day): Yes - 1-2 CAN PER DAY Frequency of alcohol use: None Drug Abuse: None Family History: Reviewed & Not Pertinent Patient has suicidal ideation: No Patient has homicidal ideation: No Pulmonary Medical History: Reports: Hx Asthma Endocrine Medical History: Reports: Hx Diabetes Mellitus Type 2 Renal/ Medical History: Denies: Hx Peritoneal Dialysis Past Surgical History: Reports: Hx Cholecystectomy, Hx Orthopedic Surgery Review of Systems - Review of Systems Constitutional: denies: Chills, Fever Cardiovascular: denies: Chest pain, Palpitations Respiratory: denies: Cough, Short of breath Gastrointestinal: denies: Abdominal pain, Vomiting -: Yes All other systems reviewed and negative Physical Exam - Vital signs Vitals: Temp Pulse Resp BP Pulse Ox 98.6 F 92 20 143/90 H 100 07/13/19 11:19 07/13/19 11:19 07/13/19 11:19 07/13/19 11:19 07/13/19 11:19 Interpretation: Normal - General General appearance: Appears well, Alert - HEENT Head: Atraumatic, Other - The occipital scalp into the posterior neck has an area of erythematous induration that is tender to palpation. It is not fluctuant. There is no drainage. Eyes: Normal Pupils: PERRL - Respiratory Respiratory status: No respiratory distress Chest status: Nontender Breath sounds: Normal Chest palpation: Normal - Cardiovascular Rhythm: Regular Heart sounds: Normal auscultation Murmur: No - Abdominal Inspection: Normal Distension: No distension Bowel sounds: Normal Tenderness: Nontender Organomegaly: No organomegaly - Back Back: Normal, Nontender - Extremities General upper extremity: Normal inspection, Nontender, Normal color, Normal ROM, Normal temperature General lower extremity: Normal inspection, Nontender, Normal color, Normal ROM, Normal temperature, Normal weight bearing. No: Regino's sign - Neurological Neuro grossly intact: Yes Cognition: Normal Orientation: AAOx4 [place] Coma Scale Eye Opening: Spontaneous [place] Coma Scale Verbal: Oriented [place] Coma Scale Motor: Obeys Commands [place] Coma Scale Total: 15 Speech: Normal Motor strength normal: LUE, RUE, LLE, RLE Sensory: Normal - Psychological Associated symptoms: Normal affect, Normal mood - Skin Skin Temperature: Warm Skin Moisture: Dry Skin Color: Normal - Except as noted Course - Re-evaluation Re-evalutation: 07/13/19 18:41 Patient presents with some induration and erythema to the occipital portion of the scalp. CT shows no evidence of drainable abscess. He will be treated with antibiotics and reexamined in 48 hours. - Vital Signs Vital signs: Temp Pulse Resp BP Pulse Ox 98.6 F 92 20 143/90 H 100 07/13/19 13:19 07/13/19 11:19 07/13/19 13:19 07/13/19 11:19 07/13/19 13:19 - Laboratory Result Diagrams: 07/13/19 13:51 07/13/19 13:51 Laboratory results interpreted by me: 07/13/19 07/13/19 13:51 13:51 WBC 13.1 H Absolute Neuts (auto) 10.1 H Glucose 217 H - Diagnostic Test Radiology reviewed: Image reviewed, Reports reviewed Discharge - Discharge Clinical Impression: Cellulitis of occipital region of scalp Condition: Stable Disposition: HOME, SELF-CARE Instructions: MRSA Cellulitis ([facility]) Additional Instructions: Please have area rechecked in 48 hours by your doctor. If you are unable to see your doctor please return to the emergency department for reevaluation. Prescriptions: Clindamycin HCl 300 mg PO Q6 7 Days #28 capsule Hydrocodone/Acetaminophen [[place] 5-325 mg Tablet] 1 tab PO Q6 PRN 3 Days #12 tablet PRN Reason:
== END 2019-07-13 19:24 | disposition home or self-care (01) ==
LOC: ER 10:44
DX: L03.811 Cellulitis of head [any part, except face] (principal); R51 Headache; E11.9 Type 2 diabetes mellitus without complications; J45.909 Unspecified asthma, uncomplicated; Z87.891 Personal history of nicotine dependence; Z88.1 Allergy status to other antibiotic agents; Z88.0 Allergy status to penicillin
CPT/HCPCS: 96376; 99284; 96374; 96375; 36415; 85025; 80048; 76536; 70491; J3490; J2270; J2405

== ENCOUNTER 2019-07-18 02:25 | Inpatient (IN) | payer MEDICAID ==
[2019-07-18] MEDS ORDERED: LIDOCAINE 2% INJ-PF (20 MG/ML) 10 ML AMPUL INFIL ONE (06:39)
[2019-07-18] MEDS ORDERED: ONDANSETRON HCL INJ/PF 4 MG/2 ML SDV IV ONE (07:08)
[2019-07-18] MEDS ORDERED: HYDROMORPHONE HCL INJ/PF 2 MG/ML AMPULE IV ONE (07:08)
--- NOTE | 2019-07-18 07:16 | ER Document Report ---
ED General - General Chief Complaint: Wound Recheck Stated Complaint: WOUND RECHECK Time Seen by Provider: 07/18/19 06:35 Mode of Arrival: Ambulatory Information source: Patient TRAVEL OUTSIDE OF THE [place] IN LAST 30 DAYS: No - HPI Notes: Patient is a 43-year-old male who presents to the emergency department for a "wound recheck" of an abscess that he had drained 4 days ago. Patient states that the abscess has gotten bigger and has worsened in terms of pain. Patient localizes the abscess to the occiput of his head. Patient states nothing exacerbates the pain or alleviates the pain. Patient describes the pain as throbbing and sometimes sharp. - Related Data Allergies/Adverse Reactions: sulfamethoxazole [From Bactrim] Allergy (Severe, Verified 07/14/19 16:12) Swelling of Throat trimethoprim [From Bactrim] Allergy (Severe, Verified 07/14/19 16:12) Swelling of Throat ketorolac tromethamine [From Toradol] Allergy (Verified 07/14/19 16:12) Penicillins Allergy (Verified 07/14/19 16:12) codeine [Codeine] Adverse Reaction (Verified 07/14/19 16:12) Nausea tramadol Adverse Reaction (Verified 07/14/19 16:12) tramadol HCl [From Ultram] Adverse Reaction (Verified 07/14/19 16:12) Nausea Past Medical History - General Information source: Patient - Social History Smoking Status: Never Smoker Frequency of alcohol use: None Drug Abuse: None Family History: Reviewed & Not Pertinent, CAD, Hyperlipidemia, Hypertension Patient has suicidal ideation: No Patient has homicidal ideation: No - Past Medical History Cardiac Medical History: Reports: Hx Hypertension Pulmonary Medical History: Reports: Hx Asthma Denies: Hx Tuberculosis Endocrine Medical History: Reports: Hx Diabetes Mellitus Type 1, Hx Diabetes Mellitus Type 2 Renal/ Medical History: Reports: Hx Kidney Stones. Denies: Hx Peritoneal Dialysis GI Medical History: Reports: Hx Gastroesophageal Reflux Disease Musculoskeletal Medical History: Reports Hx Arthritis - chronic back pain Skin Medical History: Reports Hx MRSA Psychiatric Medical History: Reports: Hx Anxiety, Hx Attention Deficit Hyperactivity Disorder, Hx Bipolar Disorder, Hx Depression, Hx Schizophrenia Past Surgical History: Reports: Hx Cholecystectomy, Hx Orthopedic Surgery - r pinkie, L leg fx as child - Immunizations Hx Diphtheria, Pertussis, Tetanus Vaccination: Yes - 11/01/12 Review of Systems - Review of Systems Constitutional: No symptoms reported EENT: No symptoms reported Cardiovascular: No symptoms reported Respiratory: No symptoms reported Gastrointestinal: No symptoms reported Genitourinary: No symptoms reported Male Genitourinary: No symptoms reported Musculoskeletal: No symptoms reported Skin: See HPI Hematologic/Lymphatic: No symptoms reported Neurological/Psychological: No symptoms reported -: Yes All other systems reviewed and negative Physical Exam - Vital signs Vitals: Temp Pulse Resp BP Pulse Ox 98.8 F 110 H 16 160/92 H 98 07/18/19 02:31 07/18/19 02:31 07/18/19 02:31 07/18/19 02:31 07/18/19 02:31 - Notes Notes: PHYSICAL EXAMINATION: GENERAL: Patient appears to be in mild distress related to the pain he is having from his abscess. HEENT: Occipital region of head is significant for a large abscess. See skin section of physical exam for further description of abscess EYES: Pupils equal round and reactive to light, extraocular movements intact, sclera anicteric, conjunctiva are normal. ENT: nares patent, oropharynx clear without exudates. Moist mucous membranes. NECK: Normal range of motion, supple without lymphadenopathy NEUROLOGICAL: No focal neurological deficits. Moves all extremities spontaneously and on command. PSYCH: Normal mood, normal affect. SKIN: Patient has a calm complex appearing abscess in the occipital region of his head that is approximately 10 cm across by 4 cm wide by 4 cm tall. There are multiple areas of punctate purulent discharge present. Course - Vital Signs Vital signs: Temp Pulse Resp BP Pulse Ox 98.6 F 74 15 111/59 L 99 07/22/19 16:13 07/22/19 16:13 07/22/19 16:13 07/22/19 16:13 07/22/19 16:13 - Laboratory Result Diagrams: 07/20/19 04:31 07/20/19 18:01 - Consults dr. terry Time consulted: 07:20 Reason for consultation: 07/18/19 07:20 complex abscess Consulted provider: will come to ER Procedures - Incision and Drainage Posterior Head Time completed: 07:02 - unsuccessful Type: Complex Anesthetic type: 2% Lidocaine mL's of anesthetic: 10 I&D procedure: Chlorprep applied Incision Method: Incision made with needle Notes: 12/21/19 07:18 Patient was unable to tolerate procedure. This MD was unable to obtain good anesthetic effect using lidocaine. Discharge - Discharge Clinical Impression: Cellulitis of head or scalp, Abscess Condition: Good Disposition: ADMITTED OBSERVATION Admitting Provider: Surgicalist - dr. terry Unit Admitted: Surgical Floor
[2019-07-18] MEDS ORDERED: VANCOMYCIN HCL INJ 1000 MG VIAL IV ONE (08:07)
[2019-07-18] MEDS ORDERED: GLUCAGON,HUMAN RECOMB 1 MG INJ SUBCUT PRN (08:09)
[2019-07-18] MEDS ORDERED: DEXTROSE 40% GEL 15 GM TUBE PO PRN ×2 (08:09)
[2019-07-18] MEDS ORDERED: DEXTROSE 50%-WATER 25 GM/50 ML DISP.SYRIN IV PRN ×2 (08:09)
[2019-07-18] MEDS ORDERED: VANCOMYCIN HCL 0 MG in DEXTROSE 5%-WATER 250 ML IV NR (08:15)
--- NOTE | 2019-07-18 08:39 | PDOC H&P ---
History of Present Illness Admission Date/PCP: 07/18/19 08:07 SOY ARMSTRONG MD Patient complains of: abscess and pain to posterior scalp History of Present Illness: SANJAY CONNORS JR is a 43 year old male with a one-week history of a posterior scalp abscess. The patient presents emergency department 3 days prior, for treatment. The patient had limited I&D at the bedside, and was sent home. The patient's abscess has not resolved, in fact it has worsened. The patient presents today for reevaluation of his large posterior scalp abscess. Patient reports fevers, chills, and severe pain. Patient denies chest pain, shortness of breath, dizziness, orthostasis, abdominal pain, melena, hematochezia, hematemesis, orthostasis, nausea, vomiting. He rates his pain is 10 out of 10. He describes his pain is sharp and stabbing. It does not radiate. Nothing m akes it better. Palpation and movement make it worse. Past Medical History Cardiac Medical History: Reports: Hypertension Denies: Myocardial Infarction, Hyperlipidema, Peripheral Vascular Disease Pulmonary Medical History: Reports: Asthma Denies: Tuberculosis Endocrine Medical History: Reports: Diabetes Mellitus Type 1, Diabetes Mellitus Type 2 GI Medical History: Reports: Gastroesophageal Reflux Disease Musculoskeltal Medical History: Reports: Arthritis - chronic back pain Psychiatric Medical History: Reports: Attention Deficit Hyperactivity Disorder, Bipolar Disorder, Depression Past Surgical History Past Surgical History: Reports: Cholecystectomy, Orthopedic Surgery - r pinkie, L leg fx as child Social History Smoking Status: Never Smoker Frequency of Alcohol Use: Occasional Hx Recreational Drug Use: Yes Drugs: Cocaine Hx Prescription Drug Abuse: No Family History Family History: CAD, Hyperlipidemia, Hypertension, Reviewed & Not Pertinent Parental Family History Reviewed: Yes Children Family History Reviewed: Yes Sibling(s) Family History Reviewed.: Yes Medication/Allergy Home Medications: Benztropine Mesylate [Cogentin 1 mg Tablet] 1 mg PO DAILY #15 tablet 01/28/19 Haloperidol [Haldol 5 mg Tablet] 5 mg PO BID #30 tablet 01/28/19 Clindamycin HCl 300 mg PO TID #30 capsule 02/04/19 Diclofenac Sodium 75 mg PO Q12HP PRN #30 tablet. 02/04/19 Clindamycin HCl 300 mg PO Q6 7 Days #28 capsule 07/13/19 Hydrocodone/Acetaminophen [[place] 5-325 mg Tablet] 1 tab PO Q6 PRN 3 Days #12 tablet 07/13/19 Clindamycin HCl [Cleocin Hcl] 300 mg PO QID #16 capsule 07/15/19 Hydrocodone/Acetaminophen [[place] 5-325 mg Tablet] 1 tab PO Q6 PRN #10 tablet 07/15/19 Mupirocin [Bactroban 2% Ointment 22 gm] 1 applic TP TID #22 gm 07/15/19 Allergies/Adverse Reactions: sulfamethoxazole [From Bactrim] Allergy (Severe, Verified 07/14/19 16:12) Swelling of Throat trimethoprim [From Bactrim] Allergy (Severe, Verified 07/14/19 16:12) Swelling of Throat ketorolac tromethamine [From Toradol] Allergy (Verified 07/14/19 16:12) Penicillins Allergy (Verified 07/14/19 16:12) acetaminophen [From Tylenol] Adverse Reaction (Verified 07/14/19 16:12) codeine [Codeine] Adverse Reaction (Verified 07/14/19 16:12) Nausea tramadol Adverse Reaction (Verified 07/14/19 16:12) tramadol HCl [From Ultram] Adverse Reaction (Verified 07/14/19 16:12) Nausea Review of Systems Constitutional: ABSENT: anorexia, chills, fatigue Eyes: ABSENT: visual disturbances Ears: ABSENT: hearing changes Nose, Mouth, and Throat: ABSENT: sore throat Cardiovascular: ABSENT: chest pain Respiratory: ABSENT: cough Gastrointestinal: ABSENT: abdominal pain, hematemesis, hematochezia, melena, nausea, vomiting Musculoskeletal: ABSENT: back pain Integumentary: PRESENT: erythema - posterior scalp, wounds - posterior scalp Neurological: ABSENT: confusion, convulsions, dizziness Psychiatric: ABSENT: anxiety, depression Endocrine: ABSENT: cold intolerance, heat intolerance Hematologic/Lymphatic: ABSENT: easy bleeding, easy bruising Physical Exam Vital Signs: Temp Pulse Resp BP Pulse Ox 99 F 87 16 111/62 97 07/18/19 05:11 07/18/19 05:11 07/18/19 05:11 07/18/19 05:11 07/18/19 05:11 Intake & Output 07/17/19 07/18/19 07/19/19 06:59 06:59 06:59 Weight 107.1 kg General appearance: PRESENT: no acute distress Head exam: PRESENT: atraumatic Eye exam: PRESENT: EOMI, PERRLA. ABSENT: scleral icterus Mouth exam: PRESENT: moist, neck supple Neck exam: PRESENT: meningismus, tenderness, thyromegaly, tracheal deviation Respiratory exam: PRESENT: unlabored. ABSENT: tachypnea, wheezes Cardiovascular exam: PRESENT: RRR Pulses: PRESENT: normal radial pulses Vascular exam: PRESENT: normal capillary refill GI/Abdominal exam: PRESENT: soft. ABSENT: distended, firm, guarding, hernia, tenderness Rectal exam: PRESENT: deferred Extremities exam: ABSENT: clubbing Musculoskeletal exam: ABSENT: deformity Neurological exam: PRESENT: alert, awake, oriented to person, oriented to place, oriented to time, oriented to situation Psychiatric exam: PRESENT: agitated, anxious Focused psych exam: ABSENT: delusional Skin exam: PRESENT: erythema - post scalp, other - large abscess to post scalp. Purulent drainage present. Assessment & Plan - Diagnosis (1) Scalp abscess Is this a current diagnosis for this admission?: Yes - Plan Summary Plan Summary: This is a 43-year-old male with a one-week history of a scalp abscess. The scalp abscess is worsening, despite outpatient therapy. It is large. I have recommended incision and drainage. The patient has agreed to this. Risks/benefits discussed, informed consent obtained, and all questions answered. Vancomycin now. Start IV fluids. Urine drug screen to assess for recent cocaine use.
[2019-07-18] MEDS ORDERED: VANCOMYCIN HCL INJ 1000 MG VIAL ONE (08:42)
[2019-07-18] MEDS: NORMAL SALINE 1000 ML 1,000 ML IV PRN ×2 (08:54→18:34)
[2019-07-18 09:05] LABS: ABSOLUTE BASOPHILS # (AUTO) 0.1 10^3/uL (0.0-0.2); ABSOLUTE EOSINOPHILS # (AUTO) 0.1 10^3/uL (0.0-0.6); ABSOLUTE LYMPHOCYTES (AUTO) 2.3 10^3/uL (0.5-4.7); ABSOLUTE MONOCYTES (AUTO) 1.2 10^3/uL (0.1-1.4); ABSOLUTE NEUT (AUTO) 11.6 10^3/uL (1.7-8.2); BASOPHILS % (AUTO) 0.9 % (0-2); EOSINOPHILS % (AUTO) 0.4 % (0-6); HEMATOCRIT 41.9 % (37.9-51.0); HEMOGLOBIN 14.6 g/dL (13.5-17.0); MEAN CORPUSCULAR HEMOGLOBIN 28.8 pg (27.0-33.4); MEAN CORPUSCULAR HGB CONC 34.9 g/dL (32.0-36.0); MEAN CORPUSCULAR VOLUME 83 fl (80-97); MONOCYTES % (AUTO) 8.1 % (3-13); PLATELET COUNT 232 10^3/uL (150-450); RED BLOOD COUNT 5.08 10^6/uL (4.35-5.55); RED CELL DISTRIBUTION WIDTH 13.2 % (11.5-14.0); SEGMENTED NEUTROPHILS % (AUTO) 75.6 % (42-78); TOTAL CELLS COUNTED % (AUTO) 100 %; WHITE BLOOD COUNT 15.4 10^3/uL (4.0-10.5)
[2019-07-18 09:11] LABS: ANION GAP 11 (5-19); BLOOD UREA NITROGEN 16 mg/dL (7-20); CALCIUM 9.4 mg/dL (8.4-10.2); CARBON DIOXIDE 28 mmol/L (22-30); CHLORIDE 102 mmol/L (98-107); GLUCOSE 157 mg/dL (75-110); POTASSIUM 3.6 mmol/L (3.6-5.0)
[2019-07-18 10:05] LABS: URINE AMPHETAMINES SCREEN NEGATIVE; URINE BARBITURATES SCREEN NEGATIVE; URINE BENZODIAZEPINES SCREEN NEGATIVE; URINE METHADONE SCREEN NEGATIVE; URINE PHENCYCLIDINE SCREEN NEGATIVE
[2019-07-18 10:08] LABS: URINE COCAINE SCREEN UNCONFIRMED POSITIVE; URINE MARIJUANA (THC) SCREEN UNCONFIRMED POSITIVE
--- NOTE | 2019-07-18 10:44 | Progress Note ---
Provider Note Provider Note: Urine drug screen reviewed. Discussion was held with anesthesia. The patient is positive for cocaine. Patient cannot have anesthesia today due to high risk of anesthesia complications. We will postpone his incision and drainage until tomorrow. Regular diet today. Psychiatric consult for bipolar depression and polysubstance abuse. N.p.o. after midnight.
[2019-07-18] MEDS: HYDROMORPHONE HCL INJ/PF 2 MG/ML AMPULE IV PRN ×4 (11:59→23:56)
--- NOTE | 2019-07-18 15:08 | PSYCHOLOGICAL NOTE ---
Psych Note - Psych Note Date seen by psych provider: 07/18/19 Time seen by psych provider: 14:15 Psych Note: Clinician attempted to meet with patient. Patient stated, "I'm in a lot of pain right now," and asked clinician to come back later. Clinician will reattempt. Pl ease be advised that patient is known to behavioral health team. Behavioral health had linked patient with [facility], however patient did not follow up.
[2019-07-18] MEDS: NICOTINE 21 MG/24 HR PATCH.TD24 TD SCH (15:19)
[2019-07-18] MEDS: VANCOMYCIN HCL 1,500 MG in DEXTROSE 5%-WATER 250 ML IV SCH (17:04)
--- NOTE | 2019-07-18 21:25 | EKG REPORT ---
SEVERITY:- NORMAL ECG - SINUS RHYTHM : Confirmed by: Leopoldo Maharaj 18-Jul-2019 21:24:38
[2019-07-19] MEDS: NORMAL SALINE 1000 ML 1,000 ML IV PRN ×2 (02:18→10:04)
[2019-07-19] MEDS: HYDROMORPHONE HCL INJ/PF 2 MG/ML AMPULE IV PRN ×5 (04:05→21:53)
[2019-07-19] MEDS: VANCOMYCIN HCL 1,500 MG in DEXTROSE 5%-WATER 250 ML IV SCH ×2 (05:10→18:10)
[2019-07-19 06:13] LABS: ABSOLUTE BASOPHILS # (AUTO) 0.1 10^3/uL (0.0-0.2); ABSOLUTE EOSINOPHILS # (AUTO) 0.1 10^3/uL (0.0-0.6); ABSOLUTE LYMPHOCYTES (AUTO) 1.8 10^3/uL (0.5-4.7); ABSOLUTE NEUT (AUTO) 9.4 10^3/uL (1.7-8.2); BASOPHILS % (AUTO) 0.7 % (0-2); EOSINOPHILS % (AUTO) 1.2 % (0-6); HEMATOCRIT 38.4 % (37.9-51.0); HEMOGLOBIN 13.4 g/dL (13.5-17.0); LYMPHOCYTES % (AUTO) 14.6 % (13-45); MEAN CORPUSCULAR HEMOGLOBIN 28.8 pg (27.0-33.4); MEAN CORPUSCULAR HGB CONC 34.9 g/dL (32.0-36.0); MEAN CORPUSCULAR VOLUME 82 fl (80-97); MONOCYTES % (AUTO) 7.8 % (3-13); PLATELET COUNT 195 10^3/uL (150-450); RED BLOOD COUNT 4.66 10^6/uL (4.35-5.55); RED CELL DISTRIBUTION WIDTH 12.8 % (11.5-14.0); SEGMENTED NEUTROPHILS % (AUTO) 75.7 % (42-78); TOTAL CELLS COUNTED % (AUTO) 100 %; WHITE BLOOD COUNT 12.5 10^3/uL (4.0-10.5)
--- NOTE | 2019-07-19 07:25 | PDOC PROGRESS REPORT ---
Subjective Progress Note for:: 07/19/19 Subjective:: 43-year-old male with a large scalp abscess. The patient reports being in pain today. He has had low-grade fevers overnight. He continues to receive intravenous antibiotics. He denies chest pain, shortness of breath, nausea, vomiting. Reason For Visit: LARGE SCALP ABSCESS,FAILED OUTPATIENT MANAGEMENT Physical Exam Vital Signs: Temp Pulse Resp BP Pulse Ox 99.6 F 91 16 119/63 100 07/18/19 23:22 07/18/19 23:22 07/18/19 23:22 07/18/19 23:22 07/18/19 23:22 Intake & Output 07/18/19 07/19/19 07/20/19 06:59 06:59 06:59 Intake Total 4077 Balance 4077 Weight 107.1 kg 112 kg Head exam: PRESENT: other - Large posterior scalp abscess Mouth exam: PRESENT: moist, neck supple Neck exam: PRESENT: tenderness - In the area of the posterior scalp abscess. A BSENT: meningismus, thyromegaly, tracheal deviation Respiratory exam: PRESENT: clear to auscultation noemi. ABSENT: chest wall tenderness Cardiovascular exam: PRESENT: RRR Pulses: PRESENT: normal radial pulses Vascular exam: PRESENT: normal capillary refill GI/Abdominal exam: PRESENT: soft. ABSENT: distended, firm, guarding, tenderness Rectal exam: PRESENT: deferred Extremities exam: ABSENT: clubbing Musculoskeletal exam: ABSENT: deformity Neurological exam: PRESENT: alert, awake, oriented to person, oriented to place, oriented to time, oriented to situation Psychiatric exam: PRESENT: agitated. ABSENT: anxious, depressed Focused psych exam: ABSENT: delusional Skin exam: PRESENT: erythema - Posterior scalp abscess, other - Large, fluctuant, draining posterior scalp abscess.. ABSENT: cyanosis, jaundice Results Laboratory Results: 07/19/19 05:50 07/18/19 08:31 07/18/19 07/18/19 07/19/19 08:31 08:31 05:50 WBC 15.4 H 12.5 H RBC 5.08 4.66 Hgb 14.6 13.4 L Hct 41.9 38.4 MCV 83 82 MCH 28.8 28.8 MCHC 34.9 34.9 RDW 13.2 12.8 Plt Count 232 195 Seg Neutrophils % 75.6 75.7 Sodium 140.9 Potassium 3.6 Chloride 102 Carbon Dioxide 28 Anion Gap 11 BUN 16 Creatinine 0.92 Est GFR ( Amer) > 60 Glucose 157 H Calcium 9.4 Assessment & Plan - Diagnosis (1) Scalp abscess Is this a current diagnosis for this admission?: Yes - Time Time Spent with patient: Less than 15 minutes - Plan Summary Plan Summary: 43-year-old male with a scalp abscess. Plan for I&D today. His surgery was delayed due to cocaine positivity. This finding increases his risk of complications with anesthesia. The patient has agreed to the procedure. Risks/benefits discussed, informed consent obtained, and all questions answered.
[2019-07-19] MEDS ORDERED: KETAMINE HCL INJ 500 MG/10 ML VIAL ONE (08:15)
[2019-07-19] MEDS ORDERED: FENTANYL CITRATE INJ/PF 100 MCG/2 ML AMPUL ONE (08:15)
[2019-07-19] MEDS ORDERED: MIDAZOLAM 2 MG/2 ML INJ ONE (08:16)
[2019-07-19] MEDS ORDERED: DEXMEDETOMIDINE INJ 80 MCG/20 ML VIAL IV ONE (08:16)
[2019-07-19] MEDS ORDERED: PROMETHAZINE HCL INJ 25 MG/1 ML VIAL IV PRN (08:25)
[2019-07-19] MEDS ORDERED: MORPHINE SULFATE 10 MG/ML INJ IV PRN (08:25)
[2019-07-19] MEDS ORDERED: MEPERIDINE HCL/PF INJ 25 MG/1 ML DISP.SYRIN IV PRN (08:25)
[2019-07-19] MEDS ORDERED: DIPHENHYDRAMINE HCL 50 MG/ML VIAL IV PRN (08:25)
[2019-07-19] MEDS ORDERED: FENTANYL CITRATE INJ/PF 100 MCG/2 ML AMPUL IV PRN ×3 (08:25)
[2019-07-19] MEDS ORDERED: LIDOCAINE 1%/EPINEPHRINE INJ 20 ML VIAL ONE (08:28)
[2019-07-19] MEDS ORDERED: BUPIVACAINE HCL 0.5 % INJ/PF 30 ML SDV ONE (08:28)
[2019-07-19] MEDS: NICOTINE 21 MG/24 HR PATCH.TD24 TD SCH (09:57)
--- NOTE | 2019-07-19 10:10 | Operative Report ---
Nonrecallable Operative Report DATE OF SURGERY: 07/19/19 PREOPERATIVE DIAGNOSIS: Large posterior scalp abscess POSTOPERATIVE DIAGNOSIS: 1. Large posterior scalp abscess. 2. Necrotizing soft tissue infection of the skin and fatty tissue of the scalp. OPERATION: 1. Incision and drainage of a large scalp abscess. 2. Sharp, excisional debridement of skin and fatty soft tissue of the posterior scalp (6 cm x 2 cm x 2 cm) SURGEON: ANA WILKERSON ANESTHESIA: LMAC TISSUE REMOVED OR ALTERED: Wound culture COMPLICATIONS: None apparent ESTIMATED BLOOD LOSS: Minimal PROCEDURE: Drains/implants: Kerlix soaked in Betadine. Procedure in detail: After informed consent was obtained, the patient was brought to the operating room and laid in the left lateral decubitus position. The right posterior scalp was prepped and draped in a normal sterile fashion. There was necrotic appearing skin overlying the large, 9 cm posterior scalp abscess. An elliptical incision was created around the necrotic appearing tissue. Dissection was carried through the skin and fatty soft tissue of the scalp, sharply with a 15 blade scalpel. A large portion of necrotic skin and fatty tissue was encountered. This was debrided away sharply. The resulting defect measured 6 cm x 2 cm, by 2 cm deep. The wound was irrigated copiously. It was then packed with Betadine soaked Kerlix. A dressing was placed, and the procedure was concluded. All sponge, instrument, and needle counts were correct x2. Condition: Fair.
[2019-07-19] MEDS: ACETAMINOPHEN 1,000 MG/100 ML RTUPB IV SCH ×2 (14:06→21:53)
[2019-07-20] MEDS: HYDROMORPHONE HCL INJ/PF 2 MG/ML AMPULE IV PRN ×6 (01:53→21:53)
[2019-07-20 04:43] LABS: ABSOLUTE BASOPHILS # (AUTO) 0.1 10^3/uL (0.0-0.2); ABSOLUTE EOSINOPHILS # (AUTO) 0.3 10^3/uL (0.0-0.6); ABSOLUTE LYMPHOCYTES (AUTO) 2.6 10^3/uL (0.5-4.7); ABSOLUTE MONOCYTES (AUTO) 0.8 10^3/uL (0.1-1.4); ABSOLUTE NEUT (AUTO) 4.9 10^3/uL (1.7-8.2); BASOPHILS % (AUTO) 0.9 % (0-2); EOSINOPHILS % (AUTO) 3.5 % (0-6); HEMATOCRIT 36.9 % (37.9-51.0); MEAN CORPUSCULAR HEMOGLOBIN 29.1 pg (27.0-33.4); MEAN CORPUSCULAR HGB CONC 35.3 g/dL (32.0-36.0); MEAN CORPUSCULAR VOLUME 82 fl (80-97); MONOCYTES % (AUTO) 9.3 % (3-13); PLATELET COUNT 198 10^3/uL (150-450); RED BLOOD COUNT 4.47 10^6/uL (4.35-5.55); RED CELL DISTRIBUTION WIDTH 12.9 % (11.5-14.0); SEGMENTED NEUTROPHILS % (AUTO) 56.3 % (42-78); TOTAL CELLS COUNTED % (AUTO) 100 %; WHITE BLOOD COUNT 8.6 10^3/uL (4.0-10.5)
[2019-07-20 05:09] LABS: ANION GAP 10 (5-19); BLOOD UREA NITROGEN 6 mg/dL (7-20); CALCIUM 8.5 mg/dL (8.4-10.2); CARBON DIOXIDE 29 mmol/L (22-30); CHLORIDE 99 mmol/L (98-107); GLUCOSE 223 mg/dL (75-110); POTASSIUM 3.9 mmol/L (3.6-5.0)
[2019-07-20] MEDS: ACETAMINOPHEN 1,000 MG/100 ML RTUPB IV SCH ×3 (05:28→21:53)
[2019-07-20] MEDS: VANCOMYCIN HCL 1,500 MG in DEXTROSE 5%-WATER 250 ML IV SCH ×2 (05:54→18:05)
[2019-07-20] MEDS ORDERED: GLUCAGON,HUMAN RECOMB 1 MG INJ SUBCUT PRN (07:08)
[2019-07-20] MEDS ORDERED: DEXTROSE 40% GEL 15 GM TUBE PO PRN ×2 (07:08)
[2019-07-20] MEDS ORDERED: DEXTROSE 50%-WATER 25 GM/50 ML DISP.SYRIN IV PRN ×2 (07:08)
--- NOTE | 2019-07-20 08:07 | PSYCHOLOGICAL NOTE ---
Psych Note - Psych Note Date seen by psych provider: 07/20/19 Time seen by psych provider: 07:45 Psych Note: Reason for Consult: Substance abuse Patient reports he was just told he will be having surgery again and has no interest in speaking to the clinician at this time. He politely requested the clinician to leave his room. Clinician complied. Clinician spoke with attending nurse. She reports the patient was told he was NPO. Clinician explained patient's request and in addition to his known history, the behavioral health team requests the nurse notify the team if the patient is interested in services. It was agreed it is not beneficial or therapeutic for the patient to be repeatedly agitated by the team when the patient is unwilling. Diagnosis: Polysubstance Abuse Cocaine Cannabis Depression; probable associated to long-term substance abuse, per history Medication recommendations made by the psychiatric medical provider, Dr. Oli MD., includes: no medication recommendations at this time Impression/Plan: Patient is cleared from acute psychiatric services. Patient is well known to this clinician and department. He has a history of positive toxicology for Cocaine and Cannabis; to include this current visit. Patient has admitted during previous evaluations to regular use. The behavioral health team has attempted to provide both psychoeducation and referrals; however, the patient has been noncompliant with treatment. During this current visit, he has refused to engage/services from the behavioral health team on 2 separate attempts. At this time, due to the patient's unwillingness to engage, it would be more appropriate for the behavioral health team to be notified if the patient is interested in services for his substance abuse. Dr. Jorge was consulted on the care and management of this patient; attending physician is in agreement with recommendations and disposition.
[2019-07-20] MEDS: NICOTINE 21 MG/24 HR PATCH.TD24 TD SCH (10:12)
--- NOTE | 2019-07-20 12:54 | PDOC PROGRESS REPORT ---
Subjective Progress Note for:: 07/20/19 Subjective:: Patient is complaining of scalp discomfort Reason For Visit: LARGE SCALP ABSCESS,FAILED OUTPATIENT MANAGEMENT Physical Exam Vital Signs: Temp Pulse Resp BP Pulse Ox 98.4 F 78 16 101/52 L 100 07/20/19 11:42 07/20/19 11:42 07/20/19 11:42 07/20/19 11:42 07/20/19 11:42 Intake & Output 07/19/19 07/20/19 07/21/19 06:59 06:59 06:59 Intake Total 4077 7058 250 Output Total 5 Balance 4075 7012 250 Weight 112 kg 109.7 kg General appearance: PRESENT: no acute distress Head exam: PRESENT: other - Scalp posterior wound = slight erythema, no odor, no drainage, surrounded by edema Results Laboratory Results: 07/20/19 04:31 07/20/19 04:31 07/20/19 07/20/19 04:31 04:31 WBC 8.6 RBC 4.47 Hgb 13.0 L Hct 36.9 L MCV 82 MCH 29.1 MCHC 35.3 RDW 12.9 Plt Count 198 Seg Neutrophils % 56.3 Sodium 138.1 Potassium 3.9 Chloride 99 Carbon Dioxide 29 Anion Gap 10 BUN 6 L Creatinine 0.73 Est GFR ( Amer) > 60 Glucose 223 H Calcium 8.5 Assessment & Plan - Diagnosis (1) Cellulitis of head or scalp Is this a current diagnosis for this admission?: Yes - Time Time Spent with patient: 15-24 minutes - Plan Summary Plan Summary: Assessment: Postoperative day #1 following incision or drainage with debridement of large posterior scalp abscess Wound cultures pending Gram stain is significant for gram-positive cocci in clusters Patient currently on vancomycin Wound bed appears clean, granulating, with erythema and edema of the edges, no drainage Plan: Continue IV vancomycin Twice daily dressing changes with normal saline moist 4 x 4 packing Waiting for wound cultures
[2019-07-20] MEDS: ONDANSETRON HCL INJ/PF 4 MG/2 ML SDV IV PRN (18:06)
[2019-07-20] MEDS ORDERED: MAG HYDROX/AL HYDROX/SIMETH SUSP 30 ML UDCUP PO PRN (22:43)
[2019-07-21] MEDS: VANCOMYCIN HCL 1,500 MG in DEXTROSE 5%-WATER 250 ML IV SCH ×3 (02:00→17:22)
[2019-07-21] MEDS: HYDROMORPHONE HCL INJ/PF 2 MG/ML AMPULE IV PRN ×3 (02:00→10:03)
[2019-07-21] MEDS: ONDANSETRON HCL INJ/PF 4 MG/2 ML SDV IV PRN (04:38)
[2019-07-21] MEDS: ACETAMINOPHEN 1,000 MG/100 ML RTUPB IV SCH (05:59)
[2019-07-21] MEDS: NICOTINE 21 MG/24 HR PATCH.TD24 TD SCH (09:04)
--- NOTE | 2019-07-21 13:52 | PDOC PROGRESS REPORT ---
Subjective Progress Note for:: 07/21/19 Subjective:: Patient comfortable, reports minimal discomfort of the scalp, dressing changes performed at bedside in presence of the nurse with no pain expressed by the patient today Reason For Visit: LARGE SCALP ABSCESS Physical Exam Vital Signs: Temp Pulse Resp BP Pulse Ox 97.9 F 76 16 97/51 L 96 07/21/19 12:00 07/21/19 12:00 07/21/19 12:00 07/21/19 12:00 07/21/19 12:00 Intake & Output 07/20/19 07/21/19 07/22/19 06:59 06:59 06:59 Intake Total 7051 1830 250 Output Total 5 Balance 7046 1830 250 Weight 109.7 kg 109.5 kg General appearance: PRESENT: no acute distress Skin exam: PRESENT: other - Posterior scalp wound = surgical wound granulating, moderate edema surrounding the edges, no erythema, minimal drainage, no odor, and wound bed covered by fibrinous material, no pain on palpation during dressing changes Results Laboratory Results: 07/20/19 04:31 07/20/19 18:01 07/20/19 18:01 Creatinine 1.17 Est GFR ( Amer) > 60 07/19/19 08:51 Scalp Gram Stain - Final 07/19/19 08:51 Scalp Wound Culture - Final Mrsa (Meth Resis Staph Aureus) No Anaerobic Organisms Assessment & Plan - Diagnosis (1) Cellulitis of head or scalp Is this a current diagnosis for this admission?: Yes - Time Time Spent with patient: 25-34 minutes - Plan Summary Plan Summary: Assessment: Postoperative day #2 following incision and drainage and debridement of posterior scalp abscess Wound culture positive for MRSA Patient currently on vancomycin IV Physical exam of the wound reports much improvement in the past 24 hours Scalp wound bed covered with a fibrinous material Plan: Continue IV antibiotics for additional 48 hours Increase scalp wound dressing changes with normal saline with podiatry clinic to 3 times a day Stop IV narcotics Change pain medications to as needed and to oral form formulation
[2019-07-21] MEDS ORDERED: ACETAMINOPHEN 325 MG TABLET PO PRN (13:53)
--- NOTE | 2019-07-21 14:58 | PDOC PROGRESS REPORT ---
Subjective-OB Progress Note for:: 07/21/19 Subjective: Events noted. Patient not needing to be followed up by surgical service anymore. I will sign off. Care will be taken over by day medical hospitalist service. Follow up with surgery clinic 3 weeks after discharge Wet-to-dry normal saline dressing changes twice daily Shower only until the wound is completely closed Physical Exam (OB) Vital Signs: Temp Pulse Resp BP Pulse Ox 97.9 F 76 16 97/51 L 96 07/21/19 12:00 07/21/19 12:00 07/21/19 12:00 07/21/19 12:00 07/21/19 12:00 Intake & Output 07/20/19 07/21/19 07/22/19 06:59 06:59 06:59 Intake Total 7051 1830 756 Output Total 5 Balance 7046 1830 756 Weight 109.7 kg 109.5 kg - Abdomen Hernia Present: No Objective-Diagnostic Laboratory: 07/20/19 04:31 07/20/19 18:01 07/20/19 18:01 Creatinine 1.17 Est GFR ( Amer) > 60 07/19/19 08:51 Scalp Gram Stain - Final 07/19/19 08:51 Scalp Wound Culture - Final Mrsa (Meth Resis Staph Aureus) No Anaerobic Organisms Assessment and Plan(PN) - Assessment and Plan (1) Cellulitis of head or scalp Is this a current diagnosis for this admission?: Yes
--- NOTE | 2019-07-21 16:51 | PDOC CONSULTATION ---
Consultation Consult Date: 07/21/19 Attending physician:: ALLYSSA BARCENAS Provider Consulted: CONNER JERRY Consult reason:: MRSA abscess on scalp History of Present Illness Admission Date/PCP: 07/18/19 08:07 SOY ARMSTRONG MD Patient complains of: Pain at the abscess surgical site. Pain radiating through his neck and into the trapezius muscles bilaterally. Pain near the right ear. History of Present Illness: SANJAY CONNORS JR is a 43 year old male with a history of substance abuse. Toxicology screen was positive for opiates (he did receive a prescription from the emergency department for hydrocodone), cocaine and marijuana. There is a question of other psychiatric diagnoses. The patient is unable to provide specific details but reading the psychiatry consult reveals that the patient has been unwilling to cooperate with regards to medical suggestions and treatment plans for his drug abuse. The patient reported to the emergency department on, I believe, 2 occasions for the same infection in his scalp. His significant other also has multiple abscesses currently with methicillin-resistant staph aureus. The initial treatments in emergency department did not provide relief and the patient returned with a large occipital scalp abscess. He was taken to the operating room and had a large excisional debridement. He still complains of pain at the site and radiating down his neck into his trapezius muscles. He has been afebrile and on vancomycin therapy for methicillin-resistant staph aureus abscess. There was a question of diabetes because of his hyperglycemia. I did look back and his hemoglobin A1c's have been consistently over 6.0 but never above 7.0. Past Medical History Cardiac Medical History: Reports: Hypertension Denies: Myocardial Infarction, Hyperlipidema, Peripheral Vascular Disease Pulmonary Medical History: Reports: Asthma Denies: Tuberculosis Endocrine Medical History: Reports: Diabetes Mellitus Type 2 Renal/ Medical History: Denies: Chronic Kidney Disease Malignancy Medical History: Reports: None GI Medical History: Reports: Gastroesophageal Reflux Disease Musculoskeltal Medical History: Reports: Arthritis - chronic back pain Psychiatric Medical History: Reports: Attention Deficit Hyperactivity Disorder, Bipolar Disorder, Depression Hematology: Denies: Anemia, Bleeding Tendencies, Heparin Induced Thrombocytopenia Infectious Medical History: Reports: Methicillin-Resistant Staph Aureus Past Surgical History Past Surgical History: Reports: Cholecystectomy, Orthopedic Surgery - r faisal, L leg fx as child Social History Information Source: Patient Lives with: Spouse/Significant other Smoking Status: Never Smoker Electronic Cigarette use?: No Frequency of Alcohol Use: Occasional Hx Recreational Drug Use: Yes Drugs: Cocaine, Marijuana Hx Prescription Drug Abuse: No - Advance Directive Resuscitation Status: Full Code Family History Family History: CAD, Hyperlipidemia, Hypertension Parental Family History Reviewed: Yes Children Family History Reviewed: Yes Sibling(s) Family History Reviewed.: Yes Medication/Allergy Home Medications: Clindamycin HCl 300 mg PO Q6 7 Days #28 capsule 07/13/19 Hydrocodone/Acetaminophen [[place] 5-325 mg Tablet] 1 tab PO Q6 PRN #10 tablet 07/15/19 Mupirocin [Bactroban 2% Ointment 22 gm] 1 applic TP TID #22 gm 07/15/19 Allergies/Adverse Reactions: sulfamethoxazole [From Bactrim] Allergy (Severe, Verified 07/14/19 16:12) Swelling of Throat trimethoprim [From Bactrim] Allergy (Severe, Verified 07/14/19 16:12) Swelling of Throat ketorolac tromethamine [From Toradol] Allergy (Verified 07/14/19 16:12) Penicillins Allergy (Verified 07/14/19 16:12) codeine [Codeine] Adverse Reaction (Verified 07/14/19 16:12) Nausea tramadol Adverse Reaction (Verified 07/14/19 16:12) tramadol HCl [From Ultram] Adverse Reaction (Verified 07/14/19 16:12) Nausea Review of Systems Constitutional: PRESENT: headache(s). ABSENT: anorexia, chills Eyes: ABSENT: visual disturbances Ears: ABSENT: hearing changes Nose, Mouth, and Throat: ABSENT: mouth pain, sore throat Cardiovascular: ABSENT: chest pain, edema, palpitations Respiratory: ABSENT: dyspnea, hemoptysis, sputum Gastrointestinal: PRESENT: constipation, nausea, other - Reflux. ABSENT: abdominal pain, diarrhea, vomiting Genitourinary: ABSENT: dysuria, hematuria Musculoskeletal: PRESENT: other - Neck and trapezius pain Integumentary: PRESENT: wounds - Excisional surgical lesion occipital scalp Neurological: ABSENT: abnormal gait, abnormal speech, syncope, vertigo Psychiatric: PRESENT: anxiety, depression. ABSENT: hallucinations Endocrine: ABSENT: cold intolerance, heat intolerance Hematologic/Lymphatic: ABSENT: easy bleeding, easy bruising Allergic/Immunologic: ABSENT: seasonal rhinorrhea Physical Exam Vital Signs: Temp Pulse Resp BP Pulse Ox 98.0 F 79 16 131/71 H 98 07/21/19 16:00 07/21/19 16:00 07/21/19 16:00 07/21/19 16:00 07/21/19 16:00 Intake & Output 07/20/19 07/21/19 07/22/19 06:59 06:59 06:59 Intake Total 7051 1830 756 Output Total 5 Balance 7046 1830 756 Weight 109.7 kg 109.5 kg General appearance: PRESENT: cooperative, mild distress, obese, well-developed Head exam: PRESENT: other - Yfn wrap around the patient's head due to occipital abscess wound Ear exam: PRESENT: normal external ear exam, other - Despite complaint of right ear pain there is no significant erythema and no signs of warmth to touch. No posterior auricular nodes.. ABSENT: bleeding, drainage Mouth exam: PRESENT: moist, tongue midline. ABSENT: neck supple - Muscles in the neck and trapezius areas bilaterally are tense. Some tenderness noted. Respiratory exam: PRESENT: clear to auscultation noemi, symmetrical, unlabored. ABSENT: rales, rhonchi, tachypnea, wheezes Cardiovascular exam: PRESENT: RRR, +S1, +S2. ABSENT: diastolic murmur, systolic murmur GI/Abdominal exam: PRESENT: normal bowel sounds, soft. ABSENT: distended, tenderness Rectal exam: PRESENT: deferred Gentrourinary exam: ABSENT: indwelling catheter Extremities exam: PRESENT: full ROM. ABSENT: pedal edema Musculoskeletal exam: PRESENT: ambulatory, full ROM, normal inspection Neurological exam: PRESENT: alert, awake, oriented to person, oriented to place, oriented to time, oriented to situation, CN II-XII grossly intact Psychiatric exam: PRESENT: agitated - Upset regarding recent physician interaction. ABSENT: anxious Focused psych exam: ABSENT: delusional, flight of ideas, paranoid Skin exam: PRESENT: other - Dressing over occipital scalp Results Laboratory Results: 07/20/19 04:31 07/20/19 18:01 07/20/19 18:01 Creatinine 1.17 Est GFR ( Amer) > 60 07/19/19 08:51 Scalp Gram Stain - Final 07/19/19 08:51 Scalp Wound Culture - Final Mrsa (Meth Resis Staph Aureus) No Anaerobic Organisms Assessment and Plan - Diagnosis (1) Cellulitis of occipital region of scalp Is this a current diagnosis for this admission?: Yes Plan: 07/21/2019-cellulitis with abscess MRSA occipital scalp. Still having a lot of pain. Currently with gauze dressing changes and mupirocin. May need Santyl if there is a buildup of slough in the wound bed. Continue IV vancomycin. (2) MRSA infection Is this a current diagnosis for this admission?: Yes Plan: 07/21/[id number] staph aureus cultured out of the abscess. Of note his significant other has had multiple abscesses in her axilla bilaterally. Currently being treated for methicillin-resistant staph aureus. IV vancomycin as above. (3) Diabetes mellitus type 2 in obese Is this a current diagnosis for this admission?: Yes Plan: 07/21/2019-hyperglycemia with infection suggestive of diabetes. I did review old blood work and his hemoglobin A1c has been above 6.0 multiple times but never above 7.0. I will start low-dose metformin. (4) Neck pain Is this a current diagnosis for this admission?: Yes Plan: 07/21/2019-patient has pain and muscle tension in the lower posterior neck and trapezius areas. I will try cyclobenzaprine in addition to his pain medication. I believe this is all related to the abscess and concurrent inflammation. (5) Cocaine abuse Is this a current diagnosis for this admission?: Yes Plan: 07/21/2019-history of and current positive toxicology screen for cocaine. See psychiatry note. This could be contributing to some of his restlessness. (6) Marijuana abuse Is this a current diagnosis for this admission?: Yes Plan: 07/21/2019-history of and current positive screen for marijuana. Depending on the length of time that he has been using marijuana this could be contributing to his nausea. (7) Constipation Qualifiers: Constipation type: slow transit constipation Qualified Code(s): K59.01 - Slow transit constipation Is this a current diagnosis for this admission?: Yes Plan: 07/21/2019-the patient reports no bowel movement since admission. He was given prescriptions for hydrocodone with acetaminophen at the emergency department visits. This could be contributing to his constipation. I have ordered an aggressive regimen of bowel care. - Time Time Spent with patient: 35 or more minutes Medications reviewed and adjusted accordingly: Yes Anticipated discharge: Home with Homehealth
[2019-07-21] MEDS ORDERED: BISACODYL 10 MG SUPP.RECT PR PRN (16:55)
[2019-07-21] MEDS ORDERED: MINERAL OIL ENEMA 133 ML PR PRN (16:57)
[2019-07-21] MEDS ORDERED: MAGNESIUM CITRATE 296 ML BOTTLE PO PRN (16:59)
[2019-07-21] MEDS ORDERED: HYDROCODONE/ACETAMINOPHEN 5-325 MG TABLET PO PRN (17:01)
[2019-07-21] MEDS: CYCLOBENZAPRINE HCL 10 MG TABLET PO PRN (17:21)
[2019-07-21] MEDS: PANTOPRAZOLE SODIUM 40 MG TABLET.DR PO SCH (17:21)
[2019-07-21] MEDS ORDERED: BISACODYL 5 MG TABEC PO ONE (17:30)
[2019-07-21] MEDS: HYDROCODONE/ACETAMINOPHEN 10-325 MG TABLET PO PRN (20:39)
[2019-07-22] MEDS: HYDROCODONE/ACETAMINOPHEN 10-325 MG TABLET PO PRN ×4 (02:56→23:00)
[2019-07-22] MEDS: VANCOMYCIN HCL 1,500 MG in DEXTROSE 5%-WATER 250 ML IV SCH ×3 (02:56→17:22)
[2019-07-22] MEDS: CYCLOBENZAPRINE HCL 10 MG TABLET PO PRN ×2 (02:56→11:02)
[2019-07-22] MEDS: PANTOPRAZOLE SODIUM 40 MG TABLET.DR PO SCH ×2 (05:46→17:22)
[2019-07-22] MEDS: METFORMIN HCL 500 MG TABLET PO SCH ×2 (08:00→16:33)
[2019-07-22] MEDS ORDERED: BISACODYL 5 MG TABEC PO PRN (08:00)
[2019-07-22] MEDS: NICOTINE 21 MG/24 HR PATCH.TD24 TD SCH (09:02)
[2019-07-22] MEDS: POLYETHYLENE GLYCOL 3350 POWDER 17 GM/1 PACKET PO SCH (09:03)
--- NOTE | 2019-07-22 10:03 | PDOC PROGRESS REPORT ---
Subjective Progress Note for:: 07/22/19 Subjective:: 07/22/2019-the patient is still in quite a bit of pain. We did change the dressing (see below). We also discussed his psychiatric history. He has had multiple inpatient stays. He has had poor interactions with psychiatry providers in the past. He reports that he uses cocaine and marijuana to self medicate for his bipolar and ADD. Reason For Visit: LARGE SCALP ABSCESS Physical Exam Vital Signs: Temp Pulse Resp BP Pulse Ox 98.2 F 85 17 115/77 98 07/22/19 07:41 07/22/19 07:41 07/22/19 07:41 07/22/19 07:41 07/22/19 07:41 Intake & Output 07/21/19 07/22/19 07/23/19 06:59 06:59 06:59 Intake Total 1830 1522 Balance 1830 1522 Weight 109.5 kg 110 kg General appearance: PRESENT: cooperative, mild distress, well-developed Head exam: PRESENT: atraumatic, normocephalic Eye exam: PRESENT: conjunctiva pink. ABSENT: scleral icterus Ear exam: PRESENT: normal external ear exam. ABSENT: bleeding, drainage Respiratory exam: PRESENT: clear to auscultation noemi, symmetrical, unlabored. ABSENT: rales, rhonchi, tachypnea, wheezes Cardiovascular exam: PRESENT: RRR, +S1, +S2, tachycardia - Likely secondary to dressing change. GI/Abdominal exam: PRESENT: normal bowel sounds, soft. ABSENT: distended, guarding, tenderness Rectal exam: PRESENT: deferred, other - Still no bowel movement Extremities exam: PRESENT: other - Left fifth toe discomfort. ABSENT: joint swelling, pedal edema Musculoskeletal exam: ABSENT: normal inspection - Mild erythema at the base of the left fifth toe with slight swelling Neurological exam: PRESENT: alert, awake, oriented to person, oriented to place, oriented to time, oriented to situation, CN II-XII grossly intact Psychiatric exam: PRESENT: anxious Results Laboratory Results: 07/20/19 04:31 07/20/19 18:01 07/19/19 08:51 Scalp Gram Stain - Final 07/19/19 08:51 Scalp Wound Culture - Final Mrsa (Meth Resis Staph Aureus) No Anaerobic Organisms Assessment and Plan - Diagnosis (1) Cellulitis of occipital region of scalp Is this a current diagnosis for this admission?: Yes Plan: 07/21/2019-cellulitis with abscess MRSA occipital scalp. Still having a lot of pain. Currently with gauze dressing changes and mupirocin. May need Santyl if there is a buildup of slough in the wound bed. Continue IV vancomycin. 07/22/2019-there is still swelling and erythema around the scalp wound. The base of the wound has mostly yellow slough. I will add Santyl to the daily dressing changes. I have also ordered liquid lidocaine to infiltrate the gauze prior to the dressing changes to help decrease pain. I will refer him to the wound care center for aggressive care of the large wound. (2) MRSA infection Is this a current diagnosis for this admission?: Yes Plan: 07/21/[id number] staph aureus cultured out of the abscess. Of note his significant other has had multiple abscesses in her axilla bilaterally. Currently being treated for methicillin-resistant staph aureus. IV vancomycin as above. 07/22/2019-continue vancomycin. Reportedly has failed clindamycin as an outpatient. He is allergic to Bactrim. We will likely need to use Zyvox. (3) Diabetes mellitus type 2 in obese Is this a current diagnosis for this admission?: Yes Plan: 07/21/2019-hyperglycemia with infection suggestive of diabetes. I did review old blood work and his hemoglobin A1c has been above 6.0 multiple times but never above 7.0. I will start low-dose metformin. 07/22/2019-today the patient reports that he has had diabetes. He has been on insulin in the past. This is different from our discussion yesterday. I have changed him to a diabetic controlled carbohydrate diet. I have added regular insulin sliding scale coverage. He was also started on low-dose metformin yest jeff. (4) Neck pain Is this a current diagnosis for this admission?: Yes Plan: 07/21/2019-patient has pain and muscle tension in the lower posterior neck and trapezius areas. I will try cyclobenzaprine in addition to his pain medication. I believe this is all related to the abscess and concurrent inflammation. 07/22/2019-likely from the inflammation in the scalp but more likely due to his anxiety and muscle tension. Flexeril has been ordered as needed. (5) Cocaine abuse Is this a current diagnosis for this admission?: Yes Plan: 07/21/2019-history of and current positive toxicology screen for cocaine. See psychiatry note. This could be contributing to some of his restlessness. 07/22/2019-I did asked the patient why he has not been to drug and alcohol treatment centers. He states that he is self-medicating for his bipolar disease and ADHD. (6) Marijuana abuse Is this a current diagnosis for this admission?: Yes Plan: 07/21/2019-history of and current positive screen for marijuana. Depending on the length of time that he has been using marijuana this could be contributing to his nausea. 07/22/2019-as above (7) Constipation Qualifiers: Constipation type: slow transit constipation Qualified Code(s): K59.01 - Slow transit constipation Is this a current diagnosis for this admission?: Yes Plan: 07/21/2019-the patient reports no bowel movement since admission. He was given prescriptions for hydrocodone with acetaminophen at the emergency department visits. This could be contributing to his constipation. I have ordered an aggressive regimen of bowel care. 07/22/2019-no bowel movement this morning. Citrate of magnesia was given. (8) Bipolar disorder Qualifiers: Active/Remission status: remission status unspecified Qualified Code(s): F31.9 - Bipolar disorder, unspecified Is this a current diagnosis for this admission?: Yes Plan: 07/22/2019-he has a history of bipolar disorder. He has not seen his psychi atrist in [place] for some time. It is confusing when he discusses his past treatment. He states that in [place] he was in an inpatient psychiatric facility for over 2 years. He stated that with one psychiatrist he talked about malpractice because an infection in his foot was not diagnosed. The psychiatrist fired him as a patient. He has taken in Rubio in the past. I have ordered 3 mg daily. His previous medication list also includes Xanax 2 mg every 8 hours. I have ordered lorazepam on a as needed basis for now. He also reports use of Adderall 30 mg 3 times a day. We do not carry Adderall. I will start the first 2 medications as above and consider Ritalin based on the patient 's response to the other medications. (9) Anxiety Is this a current diagnosis for this admission?: Yes Plan: [id number]-it is hard to know if the anxiety is more related to karen with his bipolar disorder. I have ordered lorazepam on an as-needed basis for right now. He has refused psychiatric evaluation in the hospital on multiple occasions. (10) Pain in left toe(s) Is this a current diagnosis for this admission?: Yes Plan: 12/20/2018-patient reports stubbing the left great toe. I explained that most fractures do not require surgical intervention but are conservative care. I did not see any open areas on the toe but there still is some erythema. I will ch sheryl a plain film and likely end up smooth taping the toes. He may also benefit from a walking shoe to minimize flexion of the toe. - Plan Summary Summary: 07/22/2019-as noted above the patient has a significant psychiatric history. Some medication adjustments have been noted above. There are no pharmacies open today and so discharged today is impractical. - Time Time Spent with patient: 25-34 minutes Medications reviewed and adjusted accordingly: Yes Anticipated discharge: Home
[2019-07-22 10:35] LABS: VANCOMYCIN,TROUGH 14.5 ug/mL (5.0-20.0)
[2019-07-22] MEDS: LORAZEPAM INJ 2 MG/1 ML VIAL IV PRN ×2 (11:14→17:22)
--- NOTE | 2019-07-22 12:36 | RADIOLOGY REPORT (SQ) ---
EXAM DESCRIPTION: TOE LEFT COMPLETED DATE/TIME: 07/22/2019 11:31 am REASON FOR STUDY: Stubbed left toe. Some swelling and erythema. COMPARISON: None. NUMBER OF VIEWS: Three views. TECHNIQUE: AP, lateral, and oblique images acquired of the left fifth toe. LIMITATIONS: None. FINDINGS: MINERALIZATION: Normal. BONES: No acute fracture is appreciated. On most lateral view there is a defect in the dorsal aspect of the 5th distal phalanx, but this is corticated and does not go completely through the bone. This may represent incomplete healing of a prior fracture. JOINTS: No effusions. SOFT TISSUES: No soft tissue swelling. No foreign body. OTHER: No other significant finding. IMPRESSION: NEGATIVE STUDY OF THE LEFT TOE. NO RADIOGRAPHIC EVIDENCE OF ACUTE INJURY. COMMENT: SITE OF TRAUMA/COMPLAINT MARKED/STAMP COMPLETED: Yes TECHNICAL DOCUMENTATION: JOB ID: [id number] [employer]- All Rights Reserved Reading location - IP/workstation name: [email or web address]
[2019-07-22] MEDS: PALIPERIDONE 3 MG TAB.ER.24 PO SCH (12:43)
[2019-07-22] MEDS: INSULIN REG, HUMAN 100 UNIT/ML 3 ML VIAL (PYX) SUBCUT SCH ×3 (13:02→22:59)
[2019-07-22] MEDS: COLLAGENASE CLOSTRIDIUM HIST. OINT 30 GM TP SCH (13:03)
[2019-07-22] MEDS: LIDOCAINE 4% INJ/PF (40 MG/ML) 5 ML AMPUL TOP SCH (13:04)
[2019-07-23] MEDS: LORAZEPAM INJ 2 MG/1 ML VIAL IV PRN ×4 (00:08→19:51)
[2019-07-23] MEDS: VANCOMYCIN HCL 1,500 MG in DEXTROSE 5%-WATER 250 ML IV SCH ×3 (02:30→17:22)
[2019-07-23] MEDS: PANTOPRAZOLE SODIUM 40 MG TABLET.DR PO SCH ×2 (05:26→16:30)
[2019-07-23] MEDS: HYDROCODONE/ACETAMINOPHEN 10-325 MG TABLET PO PRN ×4 (05:26→23:39)
[2019-07-23] MEDS: NICOTINE 21 MG/24 HR PATCH.TD24 TD SCH (09:33)
[2019-07-23] MEDS: METFORMIN HCL 500 MG TABLET PO SCH ×2 (09:33→16:26)
[2019-07-23] MEDS: CYCLOBENZAPRINE HCL 10 MG TABLET PO PRN (09:43)
[2019-07-23] MEDS: POLYETHYLENE GLYCOL 3350 POWDER 17 GM/1 PACKET PO SCH (09:45)
[2019-07-23] MEDS: INSULIN REG, HUMAN 100 UNIT/ML 3 ML VIAL (PYX) SUBCUT SCH ×4 (09:45→23:39)
[2019-07-23] MEDS: PALIPERIDONE 3 MG TAB.ER.24 PO SCH ×2 (09:45→16:27)
[2019-07-23] MEDS: COLLAGENASE CLOSTRIDIUM HIST. OINT 30 GM TP SCH (09:45)
[2019-07-23] MEDS: LIDOCAINE 4% INJ/PF (40 MG/ML) 5 ML AMPUL TOP SCH (09:46)
--- NOTE | 2019-07-23 16:08 | PDOC PROGRESS REPORT ---
Subjective Progress Note for:: 07/23/19 Subjective:: The patient is still complaining of significant pain at the site of the abscess resection. The patient has refused his in [place] yesterday. He continues to ask for his Adderall. We had a lengthy discussion about outpatient follow-up. It appears that he has become persona non grata at multiple medical offices. We are trying to arrange appointments for primary care and the wound care center initially and the patient will need to follow-up with psychiatry. The staff is working to find an office that will accept the patient. Reason For Visit: LARGE SCALP ABSCESS Physical Exam Vital Signs: Temp Pulse Resp BP Pulse Ox 98.6 F 74 15 111/59 L 99 07/22/19 16:13 07/22/19 16:13 07/22/19 16:13 07/22/19 16:13 07/22/19 16:13 Intake & Output 07/22/19 07/23/19 07/24/19 06:59 06:59 06:59 Intake Total 1522 1194 1632 Balance 1522 1194 1632 Weight 110 kg 115.6 kg General appearance: PRESENT: no acute distress Head exam: PRESENT: other - Surgical resection posterior scalp Ear exam: PRESENT: normal external ear exam. ABSENT: bleeding, drainage Respiratory exam: PRESENT: clear to auscultation noemi, symmetrical, unlabored. ABSENT: rales, rhonchi, tachypnea Cardiovascular exam: PRESENT: RRR, +S1, +S2 GI/Abdominal exam: PRESENT: normal bowel sounds, soft. ABSENT: tenderness Rectal exam: PRESENT: deferred Musculoskeletal exam: PRESENT: ambulatory Neurological exam: PRESENT: alert, awake, oriented to person, oriented to place, oriented to time, oriented to situation, CN II-XII grossly intact Psychiatric exam: PRESENT: anxious Skin exam: PRESENT: other - Large surgical wound occipital scalp Results Laboratory Results: 07/20/19 04:31 07/20/19 18:01 Impressions: Toe X-Ray 07/22/19 00:00 IMPRESSION: NEGATIVE STUDY OF THE LEFT TOE. NO RADIOGRAPHIC EVIDENCE OF ACUTE INJURY. Assessment and Plan - Diagnosis (1) Cellulitis of occipital region of scalp Is this a current diagnosis for this admission?: Yes Plan: 07/21/2019-cellulitis with abscess MRSA occipital scalp. Still having a lot of pain. Currently with gauze dressing changes and mupirocin. May need Santyl if there is a buildup of slough in the wound bed. Continue IV vancomycin. 07/22/2019-there is still swelling and erythema around the scalp wound. The base of the wound has mostly yellow slough. I will add Santyl to the daily dressing changes. I have also ordered liquid lidocaine to infiltrate the gauze prior to the dressing changes to help decrease pain. I will refer him to the wound care center for aggressive care of the large wound. 07/23/2019-we will discharge tomorrow on Zyvox and try to set up follow-up at the wound care clinic. (2) MRSA infection Is this a current diagnosis for this admission?: Yes Plan: [id number] staph aureus cultured out of the abscess. Of note his significant other has had multiple abscesses in her axilla bilaterally. Currently being treated for methicillin-resistant staph aureus. IV vancomycin as above. 07/22/2019-continue vancomycin. Reportedly has failed clindamycin as an outpatient. He is allergic to Bactrim. We will likely need to use Zyvox. 07/23/2019-discharged on Zyvox (3) Diabetes mellitus type 2 in obese Is this a current diagnosis for this admission?: Yes Plan: 07/21/2019-hyperglycemia with infection suggestive of diabetes. I did review old blood work and his hemoglobin A1c has been above 6.0 multiple times but never above 7.0. I will start low-dose metformin. 07/22/2019-today the patient reports that he has had diabetes. He has been on insulin in the past. This is different from our discussion yesterday. I have changed him to a diabetic controlled carbohydrate diet. I have added regular insulin sliding scale coverage. He was also started on low-dose metformin yesterday. 07/23/2019-we will discharge on metformin (4) Neck pain Is this a current diagnosis for this admission?: Yes Plan: 07/21/2019-patient has pain and muscle tension in the lower posterior neck and trapezius areas. I will try cyclobenzaprine in addition to his pain medication. I believe this is all related to the abscess and concurrent inflammation. 07/22/2019-likely from the inflammation in the scalp but more likely due to his anxiety and muscle tension. Flexeril has been ordered as needed. 07/23/2019-secondary to inflammation as well as anxiety (5) Cocaine abuse Is this a current diagnosis for this admission?: Yes Plan: 07/21/2019-history of and current positive toxicology screen for cocaine. See psychiatry note. This could be contributing to some of his restlessness. 07/22/2019-I did asked the patient why he has not been to drug and alcohol [facility]. He states that he is self-medicating for his bipolar disease and ADHD. 07/23/2019-continue to encourage cessation however it is highly unlikely considering the patient's noncompliance and psychiatric issues (6) Marijuana abuse Is this a current diagnosis for this admission?: Yes Plan: 07/21/2019-history of and current positive screen for marijuana. Depending on the length of time that he has been using marijuana this could be contributing to his nausea. 07/22/2019-as above 07/23/2019-continue to support cessation. See discussion above (7) Constipation Qualifiers: Constipation type: slow transit constipation Qualified Code(s): K59.01 - Slow transit constipation Is this a current diagnosis for this admission?: Yes Plan: 07/21/2019-the patient reports no bowel movement since admission. He was given prescriptions for hydrocodone with acetaminophen at the emergency department visits. This could be contributing to his constipation. I have ordered an aggressive regimen of bowel care. 07/22/2019-no bowel movement this morning. Citrate of magnesia was given. 07/23/2019-the patient finally had a bowel movement with citrate of magnesia. He should be on stool softeners on a regular basis. (8) Bipolar disorder Qualifiers: Active/Remission status: remission status unspecified Qualified Code(s): F31.9 - Bipolar disorder, unspecified Is this a current diagnosis for this admission?: Yes Plan: 07/22/2019-he has a history of bipolar disorder. He has not seen his psychiatrist in [place] for some time. It is confusing when he discusses his past treatment. He states that in [place] he was in an inpatient psychiatric facility for over 2 years. He stated that with one psychiatrist he talked about malpractice because an infection in his foot was not diagnosed. The psychiatrist fired him as a patient. He has taken in [place] in the past. I have ordered 3 mg daily. His previous medication list also includes Xanax 2 mg every 8 hours. I have ordered lorazepam on a as needed basis for now. He also reports use of Adderall 30 mg 3 times a day. We do not carry Adderall. I will start the first 2 medications as above and consider Ritalin based on the patient's response to the other medications. 07/23/2019-continue current dose of Invega. He must follow-up with mental health. (9) Anxiety Is this a current diagnosis for this admission?: Yes Plan: 07/22/2019--it is hard to know if the anxiety is more related to karen with his bipolar disorder. I have ordered lorazepam on an as-needed basis for right now. He has refused psychiatric evaluation in the hospital on multiple occasions. 07/23/2019-he currently has as needed benzodiazepine therapy. The antipsychotic should help with anxiety. (10) Pain in left toe(s) Is this a current diagnosis for this admission?: Yes Plan: 07/23/2019-plain film obtained. It shows partial healing of an old fracture. The patient is unlikely to benefit from any acute intervention at this time. - Plan Summary Summary: 07/22/2019-as noted above the patient has a significant psychiatric history. Some medication adjustments have been noted above. There are no pharmacies open today and so discharged today is impractical. 07/23/2019-patient will discharge tomorrow. We will try and set up as many appointments as possible. I will discharge with a prescription for the antipsychotic but not for any of the medications used to treat his ADHD. We will encourage a treatment center for his substance abuse. We have also encouraged returning to a mental health provider. Unfortunately he has been banned from several offices and has refused intervention by the psychiatric service at this facility. - Time Time Spent with patient: 15-24 minutes Medications reviewed and adjusted accordingly: Yes Anticipated discharge: Home Within: within 24 hours
[2019-07-24] MEDS: VANCOMYCIN HCL 1,500 MG in DEXTROSE 5%-WATER 250 ML IV SCH ×2 (01:59→10:06)
[2019-07-24] MEDS: LORAZEPAM INJ 2 MG/1 ML VIAL IV PRN ×2 (02:00→07:49)
[2019-07-24] MEDS: PANTOPRAZOLE SODIUM 40 MG TABLET.DR PO SCH (05:44)
[2019-07-24] MEDS: HYDROCODONE/ACETAMINOPHEN 10-325 MG TABLET PO PRN ×2 (05:44→11:26)
[2019-07-24] MEDS: CYCLOBENZAPRINE HCL 10 MG TABLET PO PRN (07:48)
[2019-07-24] MEDS: INSULIN REG, HUMAN 100 UNIT/ML 3 ML VIAL (PYX) SUBCUT SCH ×2 (07:49→11:30)
[2019-07-24] MEDS: METFORMIN HCL 500 MG TABLET PO SCH (07:50)
[2019-07-24] MEDS: POLYETHYLENE GLYCOL 3350 POWDER 17 GM/1 PACKET PO SCH (09:59)
[2019-07-24] MEDS: NICOTINE 21 MG/24 HR PATCH.TD24 TD SCH (09:59)
[2019-07-24] MEDS: PALIPERIDONE 3 MG TAB.ER.24 PO SCH (09:59)
[2019-07-24] MEDS: LIDOCAINE 4% INJ/PF (40 MG/ML) 5 ML AMPUL TOP SCH (10:03)
[2019-07-24] MEDS: COLLAGENASE CLOSTRIDIUM HIST. OINT 30 GM TP SCH (10:12)
--- NOTE | 2019-07-24 10:59 | PDOC DISCHARGE SUMMARY ---
Impression - Admit/DC Date/PCP Admission Date/Primary Care Provider: 07/18/19 08:07 SOY ARMSTRONG MD Discharge Date: 07/24/19 - Discharge Diagnosis (1) Cellulitis of occipital region of scalp Is this a current diagnosis for this admission?: Yes (2) MRSA infection Is this a current diagnosis for this admission?: Yes (3) Diabetes mellitus type 2 in obese Is this a current diagnosis for this admission?: Yes (4) Neck pain Is this a current diagnosis for this admission?: Yes (5) Cocaine abuse Is this a current diagnosis for this admission?: Yes (6) Marijuana abuse Is this a current diagnosis for this admission?: Yes (7) Constipation Is this a current diagnosis for this admission?: Yes (8) Bipolar disorder Is this a current diagnosis for this admission?: Yes (9) Anxiety Is this a current diagnosis for this admission?: Yes (10) Pain in left toe(s) Is this a current diagnosis for this admission?: Yes - Assessment Summary: 07/22/2019-as noted above the patient has a significant psychiatric history. Some medication adjustments have been noted above. There are no pharmacies open today and so discharged today is impractical. 07/23/2019-patient will discharge tomorrow. We will try and set up as many appointments as possible. I will discharge with a prescription for the antipsychotic ( Invega) but not for any of the medications used to treat his ADHD. We will encourage use of a treatment center for his substance abuse. We have also explained that it is crucial to return to a mental health provider. Unfortunately he has been banned from several offices and has refused int ervention by the psychiatric service at this facility on multiple occasions. He should also follow-up with the wound care center for ongoing care of the incision. He does have a follow-up visit scheduled with general surgery. He also needs to have an established primary care provider for his diabetes and other health issues. - Additional Information Resuscitation Status: Full Code Discharge Diet: Diabetic Discharge Activity: Activity As Tolerated Referrals: [facility] [Provider Group] (THE OFFICE IS CLOSED PLEASE CALL SATURDAY FOR FOLLOW UP APPT) Prescriptions: Paliperidone [Invega 3 mg Tab.er] 3 mg PO DAILY 14 Days #14 tab.er.24 Metformin HCl [Metformin HCl ER] 500 mg PO DAILY 14 Days #14 tab.er.24h Pantoprazole Sodium [Protonix [address] Tablet] 40 mg PO QAM 14 Days #14 tablet.dr Linezolid [Zyvox 600 mg Tablet] 600 mg PO Q12 10 Days #20 tablet Home Medications: Hydrocodone/Acetaminophen [[place] 5-325 mg Tablet] 1 tab PO Q6 PRN #10 tablet 07/15/19 Mupirocin [Bactroban 2% Ointment 22 gm] 1 applic TP TID #22 gm 07/15/19 Acetaminophen [Tylenol 325 mg Tablet] 650 mg PO Q4HP PRN tablet 07/24/19 Bisacodyl [Dulcolax 10 mg Supp.rect] 10 mg UT DAILYP PRN supp.rect 07/24/19 Bisacodyl [Dulcolax 5 mg Tablet] 10 mg PO DAILYP PRN tabec 07/24/19 Collagenase Clostridium Hist. [Santyl Ointment 30 gm] 1 applic TP DAILY tube 07/24/19 Linezolid [Zyvox 600 mg Tablet] 600 mg PO Q12 10 Days #20 tablet 07/24/19 Mag Hydrox/Al Hydrox/Simeth [Maalox Plus Susp 30 Udcup] 30 ml PO Q2HP PRN udc 07/24/19 Metformin HCl [Metformin HCl ER] 500 mg PO DAILY 14 Days #14 tab.er.24h 07/24/19 Nicotine [Nicoderm 21 mg/24 Hr Transderm Patch] 1 each TD DAILY patch.td24 07/24/19 Paliperidone [Invega 3 mg Tab.er] 3 mg PO DAILY 14 Days #14 tab.er.24 07/24/19 Pantoprazole Sodium [Protonix [address] Tablet] 40 mg PO QAM 14 Days #14 tablet.dr 07/24/19 Polyethylene Glycol 3350 [Miralax Powder 17 gm/Packet] 17 gm PO DAILY powd.pack 07/24/19 History of Present Illiness History of Present Illness: SANJAY CONNORS JR is a 43 year old male with a history of substance abuse. Toxicology screen was positive for opiates (he did receive a prescription from the emergency department for hydrocodone), cocaine and marijuana. There is a question of other psychiatric diagnoses. The patient is unable to provide specific details but reading the psychiatry consult reveals that the patient has been unwilling to cooperate with regards to medical suggestions and treatment plans for his drug abuse. The patient reported to the emergency department on, I believe, 2 occasions for the same infection in his scalp. His significant other also has multiple abscesses currently with methicillin-resistant staph aureus. The initial treatments in emergency department did not provide relief and the patient returned with a large occipital scalp abscess. He was taken to the operating room and had a large excisional debridement. He still complains of pain at the site and radiating down his neck into his trapezius muscles. He has been afebrile and on vancomycin therapy for methicillin-resistant staph aureus abscess. There was a question of diabetes because of his hyperglycemia. I did look back and his hemoglobin A1c's have been consistently over 6.0 but never above 7.0. Hospital Course Hospital Course: The patient's hospitalization was marked with complaints of his anxiety and bipolar disorder. Psychiatry attempted to see the patient and he refused on several occasions. He requested resumption of his former medications (that he has not had refilled by a physician) for his bipolar disorder and ADHD. I did resume in [place] extended release 3 mg. He states that he was on 2 mg and 3 mg made him too lethargic. I explained that this is an extended release formulation. He did eventually accept the medication after refusing initially. He did tolerate it without difficulty. He also complained of significant pain at the surgical site on the occipital scalp. The wound base had yellow fibrin slough. I added Santyl under the gauze. I explained that the wound care center has multiple treatment modalities to offer. With aggressive care he may not even need a split-thickness skin graft. We reviewed the need to sanitize the living space as his significant other has MRSA abscesses in her axilla as well. Because the patient will be adequately treated with oral Zyvox I will discharged home. As noted above I did provide a prescription for metformin as well as the Invega. I did request appointments at the wound care center, a primary care physician and because of the patient's level history with psychiatrist he will need to expand his search and reestablish with a psychiatric practitioner. Physical Exam Vital Signs: Temp Pulse Resp BP Pulse Ox 98.8 F 84 18 100/59 L 96 07/24/19 07:33 07/24/19 07:33 07/24/19 07:33 07/24/19 07:33 07/24/19 07:33 Intake & Output 07/23/19 07/24/19 07/25/19 06:59 06:59 06:59 Intake Total 1194 2832 Balance 1194 2832 Weight 115.6 kg 116.5 kg General appearance: PRESENT: no acute distress, cooperative, well-developed, other - Remains resting in bed. Head exam: ABSENT: normocephalic - Yfn wrap securing the patient's dressing in place. Musculoskeletal exam: PRESENT: ambulatory Neurological exam: PRESENT: alert, awake, oriented to person, oriented to place, oriented to time, oriented to situation, CN II-XII grossly intact Psychiatric exam: ABSENT: agitated - He did seem somewhat displeased with the discharge plan. I believe some of this is related to not receiving some of his prescriptions and the frustration of having to look outside of the local area for psychiatric help secondary to poor interactions with physicians in the past. Results Laboratory Results: WBC 8.6 10^3/uL (4.0-10.5) 07/20/19 04:31 RBC 4.47 10^6/uL (4.35-5.55) 07/20/19 04:31 Hgb 13.0 g/dL (13.5-17.0) L 07/20/19 04:31 Hct 36.9 % (37.9-51.0) L 07/20/19 04:31 MCV 82 fl (80-97) 07/20/19 04:31 MCH 29.1 pg (27.0-33.4) 07/20/19 04:31 MCHC 35.3 g/dL (32.0-36.0) 07/20/19 04:31 RDW 12.9 % (11.5-14.0) 07/20/19 04:31 Plt Count 198 10^3/uL (150-450) 07/20/19 04:31 Lymph % (Auto) 30.0 % (13-45) 07/20/19 04:31 [place] % (Auto) 9.3 % (3-13) 07/20/19 04:31 Eos % (Auto) 3.5 % (0-6) 07/20/19 04:31 Baso % (Auto) 0.9 % (0-2) 07/20/19 04:31 Absolute Neuts (auto) 4.9 10^3/uL (1.7-8.2) 07/20/19 04:31 Absolute Lymphs (auto) 2.6 10^3/uL (0.5-4.7) 07/20/19 04:31 Absolute Monos (auto) 0.8 10^3/uL (0.1-1.4) 07/20/19 04:31 Absolute Eos (auto) 0.3 10^3/uL (0.0-0.6) 07/20/19 04:31 Absolute Basos (auto) 0.1 10^3/uL (0.0-0.2) 07/20/19 04:31 Seg Neutrophils % 56.3 % (42-78) 07/20/19 04:31 Sodium 138.1 mmol/L (137-145) 07/20/19 04:31 Potassium 3.9 mmol/L (3.6-5.0) 07/20/19 04:31 Chloride 99 mmol/L (98-107) 07/20/19 04:31 Carbon Dioxide 29 mmol/L (22-30) 07/20/19 04:31 Anion Gap 10 (5-19) 07/20/19 04:31 BUN 6 mg/dL (7-20) L 07/20/19 04:31 Creatinine 1.17 mg/dL (0.52-1.25) 07/20/19 18:01 Est GFR ( Amer) > 60 (>60) 07/20/19 18:01 Est GFR (MDRD) Non-Af > 60 (>60) 07/20/19 18:01 Glucose 223 mg/dL (75-110) H 07/20/19 04:31 POC Glucose 216 mg/dL (70-110) H 07/24/19 06:00 Calcium 8.5 mg/dL (8.4-10.2) 07/20/19 04:31 Time Trough Drawn 0949 07/22/19 09:49 Vancomycin Trough 14.5 ug/mL (5.0-20.0) 07/22/19 09:49 Urine Opiates Screen UNCONFIRMED POSITIVE 07/18/19 09:24 Urine Methadone Screen NEGATIVE 07/18/19 09:24 Ur Barbiturates Screen NEGATIVE 07/18/19 09:24 Ur Phencyclidine Scrn NEGATIVE 07/18/19 09:24 Ur Amphetamines Screen NEGATIVE 07/18/19 09:24 U Benzodiazepines Scrn NEGATIVE 07/18/19 09:24 Urine Cocaine Screen UNCONFIRMED POSITIVE 07/18/19 09:24 U Marijuana (THC) Screen UNCONFIRMED POSITIVE 07/18/19 09:24 Impressions: Toe X-Ray 07/22/19 00:00 IMPRESSION: NEGATIVE STUDY OF THE LEFT TOE. NO RADIOGRAPHIC EVIDENCE OF ACUTE INJURY. Plan Health Concerns: Large surgical wound on the occipital scalp with MRSA infection. His significant other has active MRSA infection as well. Cohabitating and not being meticulous about antibacterial cleansing may lead to constantly transferring the infection back and forth Finally the ongoing use of cocaine and marijuana. Plan of Treatment: Discharge on Zyvox and metformin. The patient should follow-up with the general surgeons as well as the wound care center, establish with a primary care physician and seek out a psychiatrist who will agree to see the patient. Goals: Achieving the above and being consistent with his visits and outpatient medical care. Time Spent: Greater than 30 Minutes Stroke Is this a Stroke Patient?: No Acute Heart Failure - Is this a Heart Failure Patient?: No
[2019-07-24 11:10] VITALS: BP 116/63
== END 2019-07-24 11:32 | disposition home or self-care (01) | DRG 572 ==
LOC: ER 02:25 → OBSVTOIN 08:07 → EH 08:07 → 4S 11:03
PROVIDERS: ADMIT Hospitalist; ATTEND Hospitalist
PROC: 0JB00ZZ Excision of Scalp Subcutaneous Tissue and Fascia, Open Approach (ICD-10-PCS; principal; 2019-07-19 08:30)
DX: L02.811 Cutaneous abscess of head [any part, except face] (principal); B95.62 Methicillin resistant Staphylococcus aureus infection as the cause of diseases classified elsewhere; E66.9 Obesity, unspecified; M54.2 Cervicalgia; F14.10 Cocaine abuse, uncomplicated; F12.10 Cannabis abuse, uncomplicated; F31.9 Bipolar disorder, unspecified; F41.9 Anxiety disorder, unspecified; M79.675 Pain in left toe(s); F90.9 Attention-deficit hyperactivity disorder, unspecified type; I10 Essential (primary) hypertension; K21.9 Gastro-esophageal reflux disease without esophagitis; K59.01 Slow transit constipation; E11.51 Type 2 diabetes mellitus with diabetic peripheral angiopathy without gangrene; L03.811 Cellulitis of head [any part, except face]; Z79.899 Other long term (current) drug therapy; Z79.84 Long term (current) use of oral hypoglycemic drugs; Z88.6 Allergy status to analgesic agent; Z88.3 Allergy status to other anti-infective agents; Z88.0 Allergy status to penicillin; Z88.2 Allergy status to sulfonamides; Z88.8 Allergy status to other drugs, medicaments and biological substances
CPT/HCPCS: 00300; 36415; 80048; 80202; 80307; 82565; 82962; 85025; 87070; 87075; 87077; 87186; 87205; 93005; 93010; 94799; 96365; 96375; 99285; G0378; J0131; J1170; J1815; J2060; J2250; J2405; J3010; J3370; J3490; J7030; J7060

== ENCOUNTER 2019-07-25 15:52 | Emergency (ER) | payer MEDICAID ==
[2019-07-25] MEDS ORDERED: OXYCODONE HCL IR 5 MG TABLET PO ONE ×2 (16:48→18:11)
--- NOTE | 2019-07-25 16:49 | ER Document Report ---
ED Medical Screen (RME) - General Chief Complaint: Headache Stated Complaint: HEAD PAIN/POST HEAD SURGERY Time Seen by Provider: 07/25/19 16:42 Primary Care Provider: SOY ARMSTRONG MD [Primary Care Provider] - Follow up as needed TRAVEL OUTSIDE OF THE [place] IN LAST 30 DAYS: No - HPI Notes: 07/25/19 16:47 Patient is a 43-year-old male with a history of multiple psychiatric conditions as well as substance abuse who presents complaining of significant pain to his head after having a surgical incision and drainage performed this past Saturday. Patient stayed in the hospital until discharge yesterday. Denies fever. I have treated and performed a rapid initial assessment of this patient. A comprehensive ED assessment and evaluation of the patient, analysis of test results and completion of medical decision making process will be conducted by additional ED providers. PHYSICAL EXAMINATION: GENERAL: Well-appearing, well-nourished and in no acute distress. A&Ox4. Answe rs questions appropriately. Head: large incision/drainage noted w/o purulence. There is site erythema surrounding. No streaks. - Related Data Allergies/Adverse Reactions: sulfamethoxazole [From Bactrim] Allergy (Severe, Verified 07/14/19 16:12) Swelling of Throat trimethoprim [From Bactrim] Allergy (Severe, Verified 07/14/19 16:12) Swelling of Throat ketorolac tromethamine [From Toradol] Allergy (Verified 07/14/19 16:12) Penicillins Allergy (Verified 07/14/19 16:12) codeine [Codeine] Adverse Reaction (Verified 07/14/19 16:12) Nausea tramadol Adverse Reaction (Verified 07/14/19 16:12) tramadol HCl [From Ultram] Adverse Reaction (Verified 07/14/19 16:12) Nausea Past Medical History - Social History Family history: Reviewed & Not Pertinent - Past Medical History Cardiac Medical History: Reports: Hx Hypertension Denies: Hx Heart Attack, Hx Hypercholesterolemia, Hx Peripheral Vascular Disease Pulmonary Medical History: Reports: Hx Asthma Denies: Hx Tuberculosis Endocrine Medical History: Reports: Hx Diabetes Mellitus Type 1, Hx Diabetes Mellitus Type 2 Renal/ Medical History: Reports: Hx Kidney Stones. Denies: Hx Peritoneal Dialysis GI Medical History: Reports: Hx Gastroesophageal Reflux Disease Musculoskeltal Medical History: Reports Hx Arthritis - chronic back pain Skin Medical History: Reports Hx MRSA Psychiatric Medical History: Reports: Hx Anxiety, Hx Attention Deficit Hyperactivity Disorder, Hx Bipolar Disorder, Hx Depression, Hx Schizophrenia Infectious Medical History: Reports: Hx MRSA Past Surgical History: Reports: Hx Cholecystectomy, Hx Orthopedic Surgery - r pinkie, L leg fx as child - Immunizations Hx Diphtheria, Pertussis, Tetanus Vaccination: Yes - 11/01/12 Physical Exam - Vital signs Vitals: Temp Pulse Resp BP Pulse Ox 98.4 F 120 H 26 H 146/92 H 96 07/25/19 16:07 07/25/19 16:07 07/25/19 16:07 07/25/19 16:07 07/25/19 16:07 Course - Vital Signs Vital signs: Temp Pulse Resp BP Pulse Ox 98.4 F 120 H 26 H 146/92 H 96 07/25/19 16:07 07/25/19 16:07 07/25/19 16:07 07/25/19 16:07 07/25/19 16:07 Doctor's Discharge - Discharge Referrals: SOY ARMSTRONG MD [Primary Care Provider] - Follow up as needed
[2019-07-25] MEDS ORDERED: ONDANSETRON 4 MG TAB.RAPDIS PO ONE (17:22)
[2019-07-25 17:33] LABS: HEMATOCRIT 43.1 % (37.9-51.0); HEMOGLOBIN 14.9 g/dL (13.5-17.0); MEAN CORPUSCULAR HEMOGLOBIN 28.8 pg (27.0-33.4); MEAN CORPUSCULAR HGB CONC 34.6 g/dL (32.0-36.0); MEAN CORPUSCULAR VOLUME 83 fl (80-97); PLATELET COUNT 252 10^3/uL (150-450); RED BLOOD COUNT 5.19 10^6/uL (4.35-5.55); RED CELL DISTRIBUTION WIDTH 12.8 % (11.5-14.0); WHITE BLOOD COUNT 10.7 10^3/uL (4.0-10.5)
[2019-07-25 17:44] LABS: ALBUMIN 3.9 g/dL (3.5-5.0); ALKALINE PHOSPHATASE 54 U/L (38-126); ANION GAP 15 (5-19); ASPARTATE AMINO TRANSFERASE 32 U/L (17-59); BILIRUBIN,DIRECT 0.2 mg/dL (0.0-0.4); BILIRUBIN,TOTAL 0.7 mg/dL (0.2-1.3); BLOOD UREA NITROGEN 11 mg/dL (7-20); CALCIUM 9.4 mg/dL (8.4-10.2); CARBON DIOXIDE 25 mmol/L (22-30); CHLORIDE 98 mmol/L (98-107); GLUCOSE 217 mg/dL (75-110); POTASSIUM 4.2 mmol/L (3.6-5.0); TOTAL PROTEIN 7.2 g/dL (6.3-8.2)
[2019-07-25 18:01] LABS: ABSOLUTE LYMPHOCYTES# (MANUAL) 3.3 10^3/uL (0.5-4.7); ABSOLUTE MONOCYTES # (MANUAL) 0.5 10^3/uL (0.1-1.4); BASOPHILS % (MANUAL) 1 % (0-2); EOSINOPHILS % (MANUAL) 0 % (0-6); LYMPHOCYTES % (MANUAL) 31 % (13-45); MONOCYTES % (MANUAL) 5 % (3-13); SEGMENTED NEUTROPHILS % (MAN) 63 % (42-78); TOTAL CELLS COUNTED 100
[2019-07-25 18:03] LABS: PLATELET COMMENT ADEQUATE; TOXIC GRANULATION SLIGHT; TOXIC VACUOLATION PRESENT
--- NOTE | 2019-07-25 18:18 | ER Document Report ---
ED General - General Chief Complaint: Post Surgical Pain Stated Complaint: HEAD PAIN/POST HEAD SURGERY Time Seen by Provider: 07/25/19 16:42 Primary Care Provider: SOY ARMSTRONG MD [Primary Care Provider] - Follow up as needed TRAVEL OUTSIDE OF THE [place] IN LAST 30 DAYS: No - HPI Context: Patient was released yesterday from the hospital for occipital scalp abscess on Khushbu nasal lid presents with continuing pain in his occipital region. No recent fevers or illnesses. He states he has been medically compliant with his antibiotics. Per the notes and discussed with Dr. Fuentes she he was not sent home with pain medication. He continues to have pain in this area. - Related Data Allergies/Adverse Reactions: sulfamethoxazole [From Bactrim] Allergy (Severe, Verified 07/14/19 16:12) Swelling of Throat trimethoprim [From Bactrim] Allergy (Severe, Verified 07/14/19 16:12) Swelling of Throat ketorolac tromethamine [From Toradol] Allergy (Verified 07/14/19 16:12) Penicillins Allergy (Verified 07/14/19 16:12) codeine [Codeine] Adverse Reaction (Verified 07/14/19 16:12) Nausea tramadol Adverse Reaction (Verified 07/14/19 16:12) tramadol HCl [From Ultram] Adverse Reaction (Verified 07/14/19 16:12) Nausea Past Medical History - Social History Smoking Status: Current Every Day Smoker Frequency of alcohol use: None Family History: Reviewed & Not Pertinent, CAD, Hyperlipidemia, Hypertension Patient has suicidal ideation: No Patient has homicidal ideation: No - Past Medical History Cardiac Medical History: Reports: Hx Hypertension Denies: Hx Heart Attack, Hx Hypercholesterolemia, Hx Peripheral Vascular Disease Pulmonary Medical History: Reports: Hx Asthma Denies: Hx Tuberculosis Endocrine Medical History: Reports: Hx Diabetes Mellitus Type 1, Hx Diabetes Me llitus Type 2 Renal/ Medical History: Reports: Hx Kidney Stones. Denies: Hx Peritoneal Dialysis GI Medical History: Reports: Hx Gastroesophageal Reflux Disease Musculoskeletal Medical History: Reports Hx Arthritis - chronic back pain Skin Medical History: Reports Hx MRSA Psychiatric Medical History: Reports: Hx Anxiety, Hx Attention Deficit Hyperactivity Disorder, Hx Bipolar Disorder, Hx Depression, Hx Schizophrenia Infectious Medical History: Reports: Hx MRSA Past Surgical History: Reports: Hx Cholecystectomy, Hx Orthopedic Surgery - r pinkie, L leg fx as child - Immunizations Hx Diphtheria, Pertussis, Tetanus Vaccination: Yes - 11/01/12 Review of Systems - Review of Systems Constitutional: No symptoms reported EENT: No symptoms reported Cardiovascular: No symptoms reported Respiratory: No symptoms reported Gastrointestinal: No symptoms reported Genitourinary: No symptoms reported Male Genitourinary: No symptoms reported Musculoskeletal: No symptoms reported Skin: See HPI Hematologic/Lymphatic: No symptoms reported Neurological/Psychological: No symptoms reported Physical Exam - Vital signs Vitals: Temp Pulse Resp BP Pulse Ox 98.4 F 120 H 26 H 146/92 H 96 07/25/19 16:07 07/25/19 16:07 07/25/19 16:07 07/25/19 16:07 07/25/19 16:07 - General General appearance: Appears well, Alert - HEENT Head: Normocephalic, Atraumatic Eyes: Normal Conjunctiva: Normal Cornea: Normal - Respiratory Respiratory status: No respiratory distress Chest status: Nontender Breath sounds: Normal - Cardiovascular Rhythm: Regular Heart sounds: Normal auscultation Murmur: No - Abdominal Inspection: Normal Distension: No distension - Skin Notes: Large postsurgical wound site occipital region with no signs of infection no purulence no smells no erythema or warmth. Surgical incision is approximately 5 x 6 cm and 3 cm in depth. Nontender neck Course - Re-evaluation Re-evalutation: 07/25/19 18:16 Overall well-appearing patient initial vitals show tachycardia and tachypnea he is not tachycardic or tachypneic in my exam when I first entered the room the patient was acting in he was in a lot of pain and rhythmic motioning on the bed like he was in excruciating pain but upon further discussions he calmed down and stopped his motions and was able to speak in full sentence. He does have psychiatric disorder. He states he has been taking his medications as prescribed including his antibiotics. Small prescription of pain and nausea medication provided in the emergency department. He is to follow-up with wound care letter this week. Return precautions were provided. - Vital Signs Vital signs: Temp Pulse Resp BP Pulse Ox 98.4 F 120 H 26 H 146/92 H 96 07/25/19 16:07 07/25/19 16:07 07/25/19 16:07 07/25/19 16:07 07/25/19 16:07 - Laboratory Result Diagrams: 07/25/19 17:13 07/25/19 17:13 Laboratory results interpreted by me: 07/25/19 07/25/19 17:13 17:13 WBC 10.7 H Glucose 217 H Discharge - Discharge Clinical Impression: Postoperative pain, Cellulitis of occipital region of scalp Condition: Good Disposition: HOME, SELF-CARE Additional Instructions: Please follow-up with wound care as discussed. Please continue take your antibiotics. Return the emergency department for any concerns or development of any fevers. Prescriptions: Oxycodone HCl/Acetaminophen [Percocet 10-325 Mg Tablet] 1 each PO QID PRN #15 tablet PRN Reason: Ondansetron HCl [Zofran 4 mg Tablet] 1 tab PO QID #10 tablet Referrals: SOY ARMSTRONG MD [Primary Care Provider] - Follow up as needed
[2019-07-25 19:04] VITALS: BP 129/87
== END 2019-07-25 19:06 | disposition home or self-care (01) ==
LOC: ER 15:52
DX: L03.811 Cellulitis of head [any part, except face] (principal); G89.18 Other acute postprocedural pain; R51 Headache; Z98.890 Other specified postprocedural states; Z79.899 Other long term (current) drug therapy; F17.200 Nicotine dependence, unspecified, uncomplicated; I10 Essential (primary) hypertension; E11.9 Type 2 diabetes mellitus without complications
CPT/HCPCS: 99283; 36415; 85025; 80053; S0119; J3490

== ENCOUNTER 2019-07-28 14:11 | Emergency (ER) | payer MEDICAID ==
[2019-07-28 14:19] VITALS: BP 138/87
--- NOTE | 2019-07-28 15:00 | ER Document Report ---
HPI - HPI Time Seen by Provider: 07/28/19 14:50 Pain Level: 5 Notes: Patient is a 43-year-old male who presents complaining of continued pain to his wound status post extensive incision and drainage as performed by the surgeon this past week. Patient was seen the other day and was given pain medicine which he finished. Patient states that he is having some increased pain and wanted his wound reevaluated because he cannot see it. He is otherwise able to eat and drink without difficulty. He is urinating normally. No other concerns or complaints. Denies any headache, fever, neck pain, URI, sore throat, chest pain, palpitations, syncope, cough, shortness of breath, wheeze, dyspnea, abdominal pain, nausea/vomiting/diarrhea, urinary retention, dysuria, hematuria. - ROS Systems Reviewed and Negative: Yes All other systems reviewed and negative - REPRODUCTIVE Reproductive: DENIES: : Past Medical History - Social History Smoking Status: Never Smoker Chew tobacco use (# tins/day): Yes Frequency of alcohol use: None Drug Abuse: None Family History: Reviewed & Not Pertinent, CAD, Hyperlipidemia, Hypertension Patient has suicidal ideation: No Patient has homicidal ideation: No - Past Medical History Cardiac Medical History: Reports: Hx Hypertension Denies: Hx Heart Attack, Hx Hypercholesterolemia, Hx Peripheral Vascular Disease Pulmonary Medical History: Reports: Hx Asthma Denies: Hx Tuberculosis Endocrine Medical History: Reports: Hx Diabetes Mellitus Type 1, Hx Diabetes Mellitus Type 2 Renal/ Medical History: Reports: Hx Kidney Stones. Denies: Hx Peritoneal Dialysis GI Medical History: Reports: Hx Gastroesophageal Reflux Disease Musculoskeletal Medical History: Reports Hx Arthritis - chronic back pain Skin Medical History: Reports Hx MRSA Psychiatric Medical History: Reports: Hx Anxiety, Hx Attention Deficit Hyperactivity Disorder, Hx Bipolar Disorder, Hx Depression, Hx Schizophrenia Infectious Medical History: Reports: Hx MRSA Past Surgical History: Reports: Hx Cholecystectomy, Hx Orthopedic Surgery - r pinkie, L leg fx as child - Immunizations Hx Diphtheria, Pertussis, Tetanus Vaccination: Yes - 11/01/12 [facility] Provider Document - CONSTITUTIONAL Agree With Documented VS: Yes Notes: PHYSICAL EXAMINATION: GENERAL: Well-appearing, well-nourished and in no acute distress. NECK: Normal range of motion, supple without lymphadenopathy LUNGS: Breath sounds clear to auscultation bilaterally and equal. No wheezes rales or rhonchi. HEART: Regular rate and rhythm without murmurs, rubs, gallops. Musculoskeletal: FROM to passive/active. Strength 5+/5. Extremities: No cyanosis, clubbing, or edema b/l. Peripheral pulses 2+. Capillary refill less than 3 seconds. NEUROLOGICAL: Cranial nerves grossly intact. Normal speech, normal gait. Normal sensory, motor exams PSYCH: Normal mood, normal affect. SKIN: Scalp: Wound appears to be healing well without purulence, streaks, or worsening erythema. New granulation tissue noted. - INFECTION CONTROL TRAVEL OUTSIDE OF THE [place] IN LAST 30 DAYS: No Course - Re-evaluation Re-evalutation: 07/28/19 15:02 Patient is an afebrile, well-hydrated, 43-year-old male who presents for wound reevaluation. Vitals are acceptable without segment tachycardia, tachypnea, hypoxia. PE is otherwise unremarkable. Patient is nontoxic-appearing and is tolerating p.o. without difficulty. Wound does appear to be healing well. He does continue to take his antibiotic. I did review with patient that he will need to follow-up with wound clinic as he is previously been instructed this week after the holiday. I told the patient I will give him 6 tablets of his pain medicine, but nothing more. No further work-up warranted. Recheck with your PCM this week as well. Return to the ED with any other worsening/concerning symptoms. Patient is in agreement. - Vital Signs Vital signs: Temp Pulse Resp BP Pulse Ox 98.9 F 115 H 24 H 138/87 H 99 07/28/19 14:18 07/28/19 14:18 07/28/19 14:18 07/28/19 14:18 07/28/19 14:18 Discharge - Discharge Clinical Impression: Encounter for wound re-check Condition: Stable Disposition: HOME, SELF-CARE Instructions: Soap Cleansing ([facility]) Additional Instructions: Keep the skin clean Wash with soap and water Tylenol/ibuprofen if needed Take medication as directed Monitor for any worsening symptoms Recheck with your PCM in 3-5 days Return to the ED with any worsening symptoms and/or development of fever, headac he, chest pain, palpitations, syncope, shortness of breath, trouble breathing, abdominal pain, n/v/d, abscess, purulent discharge, red streaks, worsening swelling, or other worsening symptoms that are concerning to you. Prescriptions: Oxycodone HCl/Acetaminophen [Percocet 5-325 mg Tablet] 1 tab PO BID #6 tab Forms: Elevated Blood Pressure Referrals: SOY ARMSTRONG MD [Primary Care Provider] - Follow up as needed Wound Care [Provider Group] - Follow up as needed
[2019-07-28] MEDS ORDERED: OXYCODONE HCL IR 5 MG TABLET PO ONE (15:05)
== END 2019-07-28 15:44 | disposition home or self-care (01) ==
LOC: ER 14:11
DX: S01.01XD Laceration without foreign body of scalp, subsequent encounter (principal); X58.XXXD Exposure to other specified factors, subsequent encounter; E11.9 Type 2 diabetes mellitus without complications; I10 Essential (primary) hypertension; J45.909 Unspecified asthma, uncomplicated
CPT/HCPCS: 99282; J3490

== ENCOUNTER 2019-07-30 12:59 | Emergency (ER) | payer MEDICAID ==
--- NOTE | 2019-07-30 13:38 | ER Document Report ---
ED Medical Screen (RME) - General Chief Complaint: Head Injury Stated Complaint: REVISIT/HEAD PAIN, POST SURGERY Time Seen by Provider: 07/30/19 13:26 Primary Care Provider: SOY ARMSTRONG MD [Primary Care Provider] - Follow up as needed Notes: Patient presents to the emergency department for a wound check and uncontrolled pain. Patient has been unable to see the wound clinic from an occipital abscess incision and drainage by Dr. Matthew but has been performing usual wound care. Patient states that he is in pain and is requesting pain medications Patient is a known polysubstance abuser and was seen here 2 days ago and prescribed 6 Percocet and 3 days prior to that on 07/25 was prescribed 15 Percocet. I am concerned the patient's chief goal for this encounter is narcotics. Exam: Anxious and fidgety, scalp wound is healing and there is no erythema or purulent discharge coming from the site I have greeted and performed a rapid initial assessment of this patient. A comprehensive ED assessment and evaluation of the patient, analysis of test results and completion of medical decision making process will be conducted by an additional ED providers. TRAVEL OUTSIDE OF THE [place] IN LAST 30 DAYS: No - Related Data Allergies/Adverse Reactions: sulfamethoxazole [From Bactrim] Allergy (Severe, Verified 07/30/19 13:26) Swelling of Throat trimethoprim [From Bactrim] Allergy (Severe, Verified 07/30/19 13:26) Swelling of Throat ketorolac tromethamine [From Toradol] Allergy (Verified 07/30/19 13:26) Penicillins Allergy (Verified 07/30/19 13:26) codeine [Codeine] Adverse Reaction (Verified 07/30/19 13:26) Nausea tramadol Adverse Reaction (Verified 07/30/19 13:26) tramadol HCl [From Ultram] Adverse Reaction (Verified 07/30/19 13:26) Nausea Home Medications: Post Surgical Abx. Metformin Past Medical History - Social History Chew tobacco use (# tins/day): Yes - Dip Frequency of alcohol use: None Drug Abuse: None Family history: Reviewed & Not Pertinent - Past Medical History Cardiac Medical History: Reports: Hx Hypertension Denies: Hx Heart Attack, Hx Hypercholesterolemia, Hx Peripheral Vascular Disease Pulmonary Medical History: Reports: Hx Asthma Denies: Hx Tuberculosis Endocrine Medical History: Reports: Hx Diabetes Mellitus Type 1, Hx Diabetes Mellitus Type 2 Renal/ Medical History: Reports: Hx Kidney Stones. Denies: Hx Peritoneal Dialysis GI Medical History: Reports: Hx Gastroesophageal Reflux Disease Musculoskeltal Medical History: Reports Hx Arthritis - chronic back pain Skin Medical History: Reports Hx MRSA Psychiatric Medical History: Reports: Hx Anxiety, Hx Attention Deficit Hyperactivity Disorder, Hx Bipolar Disorder, Hx Depression, Hx Schizophrenia Infectious Medical History: Reports: Hx MRSA Past Surgical History: Reports: Hx Cholecystectomy, Hx Orthopedic Surgery - r pinkie, L leg fx as child - Immunizations Hx Diphtheria, Pertussis, Tetanus Vaccination: Yes - 11/01/12 Physical Exam - Vital signs Vitals: Temp Pulse Resp BP Pulse Ox 98.4 F 96 16 146/119 H 100 07/30/19 13:03 07/30/19 13:03 07/30/19 13:03 07/30/19 13:03 07/30/19 13:03 Course - Vital Signs Vital signs: Temp Pulse Resp BP Pulse Ox 98.4 F 96 16 146/119 H 100 07/30/19 13:03 07/30/19 13:03 07/30/19 13:03 07/30/19 13:03 07/30/19 13:03 Doctor's Discharge - Discharge Referrals: SOY ARMSTRONG MD [Primary Care Provider] - Follow up as needed
[2019-07-30 15:07] LABS: ABSOLUTE BASOPHILS # (AUTO) 0.1 10^3/uL (0.0-0.2); ABSOLUTE EOSINOPHILS # (AUTO) 0.1 10^3/uL (0.0-0.6); ABSOLUTE LYMPHOCYTES (AUTO) 2.3 10^3/uL (0.5-4.7); ABSOLUTE MONOCYTES (AUTO) 0.4 10^3/uL (0.1-1.4); ABSOLUTE NEUT (AUTO) 4.6 10^3/uL (1.7-8.2); BASOPHILS % (AUTO) 1.8 % (0-2); EOSINOPHILS % (AUTO) 1.9 % (0-6); HEMATOCRIT 40.7 % (37.9-51.0); HEMOGLOBIN 14.3 g/dL (13.5-17.0); LYMPHOCYTES % (AUTO) 30.1 % (13-45); MEAN CORPUSCULAR HEMOGLOBIN 28.8 pg (27.0-33.4); MEAN CORPUSCULAR HGB CONC 35.1 g/dL (32.0-36.0); MEAN CORPUSCULAR VOLUME 82 fl (80-97); MONOCYTES % (AUTO) 4.8 % (3-13); PLATELET COUNT 258 10^3/uL (150-450); RED BLOOD COUNT 4.95 10^6/uL (4.35-5.55); RED CELL DISTRIBUTION WIDTH 13.3 % (11.5-14.0); SEGMENTED NEUTROPHILS % (AUTO) 61.4 % (42-78); TOTAL CELLS COUNTED % (AUTO) 100 %; WHITE BLOOD COUNT 7.5 10^3/uL (4.0-10.5)
[2019-07-30 15:27] LABS: ANION GAP 11 (5-19); BLOOD UREA NITROGEN 10 mg/dL (7-20); CALCIUM 9.4 mg/dL (8.4-10.2); CARBON DIOXIDE 28 mmol/L (22-30); CHLORIDE 100 mmol/L (98-107); GLUCOSE 157 mg/dL (75-110); POTASSIUM 4.2 mmol/L (3.6-5.0)
[2019-07-30] MEDS ORDERED: OXYCODONE-ACETAMINOPHEN 5-325 MG TABLET PO ONE (15:37)
--- NOTE | 2019-07-30 15:46 | ER Document Report ---
ED General - General Chief Complaint: Wound Recheck Stated Complaint: REVISIT/HEAD PAIN, POST SURGERY Time Seen by Provider: 07/30/19 13:26 Primary Care Provider: SOY ARMSTRONG MD [Primary Care Provider] - Follow up as needed Mode of Arrival: Ambulatory Information source: Patient TRAVEL OUTSIDE OF THE [place] IN LAST 30 DAYS: No - HPI Onset: Other - Patient is status post incision and drainage of necrotic tissue in the base of his neck on the right side due to a MRSA infection. Patient is wearing a bandage over site and has been referred to the wound clinic. However the wound clinic is not open until Saturday of which is 5 days away. Patient has run out of pain medication and states that he has his neck is in pain due to the incision site itself. Drainage is not overwhelming at this time. There is no fever or chills. - Related Data Allergies/Adverse Reactions: sulfamethoxazole [From Bactrim] Allergy (Severe, Verified 07/30/19 13:26) Swelling of Throat trimethoprim [From Bactrim] Allergy (Severe, Verified 07/30/19 13:26) Swelling of Throat ketorolac tromethamine [From Toradol] Allergy (Verified 07/30/19 13:26) Penicillins Allergy (Verified 07/30/19 13:26) codeine [Codeine] Adverse Reaction (Verified 07/30/19 13:26) Nausea tramadol Adverse Reaction (Verified 07/30/19 13:26) tramadol HCl [From Ultram] Adverse Reaction (Verified 07/30/19 13:26) Nausea Home Medications: Post Surgical Abx. Metformin Past Medical History - Social History Smoking Status: Never Smoker Chew tobacco use (# tins/day): Yes - Dip Frequency of alcohol use: None Drug Abuse: None Family History: Reviewed & Not Pertinent, CAD, Hyperlipidemia, Hypertension Patient has suicidal ideation: No Patient has homicidal ideation: No - Past Medical History Cardiac Medical History: Reports: Hx Hypertension Denies: Hx Heart Attack, Hx Hypercholesterolemia, Hx Peripheral Vascular Disease Pulmonary Medical History: Reports: Hx Asthma Denies: Hx Tuberculosis Endocrine Medical History: Reports: Hx Diabetes Mellitus Type 1, Hx Diabetes Mellitus Type 2 Renal/ Medical History: Reports: Hx Kidney Stones. Denies: Hx Peritoneal Dialysis GI Medical History: Reports: Hx Gastroesophageal Reflux Disease Musculoskeletal Medical History: Reports Hx Arthritis - chronic back pain Skin Medical History: Reports Hx MRSA Psychiatric Medical History: Reports: Hx Anxiety, Hx Attention Deficit Hyperactivity Disorder, Hx Bipolar Disorder, Hx Depression, Hx Schizophrenia Infectious Medical History: Reports: Hx MRSA Past Surgical History: Reports: Hx Cholecystectomy, Hx Orthopedic Surgery - r pinkie, L leg fx as child - Immunizations Hx Diphtheria, Pertussis, Tetanus Vaccination: Yes - 11/01/12 Review of Systems - Review of Systems Skin: See HPI Physical Exam - Vital signs Vitals: Temp Pulse Resp BP Pulse Ox 98.4 F 96 16 146/119 H 100 07/30/19 13:03 07/30/19 13:03 07/30/19 13:03 07/30/19 13:03 07/30/19 13:03 Interpretation: Normal - General General appearance: Appears well, Alert - HEENT Head: Normocephalic, Atraumatic Eyes: Normal Pupils: PERRL - Respiratory Respiratory status: No respiratory distress Chest status: Nontender Breath sounds: Normal Chest palpation: Normal - Cardiovascular Rhythm: Regular Heart sounds: Normal auscultation Murmur: No - Abdominal Inspection: Normal Distension: No distension Bowel sounds: Normal Tenderness: Nontender Organomegaly: No organomegaly - Back Back: Normal, Nontender - Extremities General upper extremity: Normal inspection, Nontender, Normal color, Normal ROM, Normal temperature General lower extremity: Normal inspection, Nontender, Normal color, Normal ROM, Normal temperature, Normal weight bearing. No: Regino's sign - Neurological Neuro grossly intact: Yes Cognition: Normal Orientation: AAOx4 Silv[place] Coma Scale Eye Opening: Spontaneous [place] Coma Scale Verbal: Oriented Silv[place] Coma Scale Motor: Obeys Commands [place] Coma Scale Total: 15 Speech: Normal Motor strength normal: LUE, RUE, LLE, RLE Sensory: Normal - Psychological Associated symptoms: Normal affect, Normal mood - Skin Skin Temperature: Warm Skin Moisture: Dry Skin Color: Normal Notes: Wound site with a longitudinal gaping wound site on the right nap of his neck. Lymph is about 10 cm with 4 cm. Granulation moist tissue present within the wou nd site. No malodor no bleeding at this time. Patient is tender around the right paracervical muscles of his neck he has full range of neck movement. Dressing was reapplied per patient with bandages turban wrap around his his head. Course - Vital Signs Vital signs: Temp Pulse Resp BP Pulse Ox 98.4 F 96 16 146/119 H 100 07/30/19 13:03 07/30/19 13:03 07/30/19 13:03 07/30/19 13:03 07/30/19 13:03 - Laboratory Result Diagrams: 07/30/19 14:42 07/30/19 14:42 Laboratory results interpreted by me: 07/30/19 14:42 Glucose 157 H 07/30/19 15:44 Laboratory results are within normal limits except for the glucose of 157. Pat ient has a normal white blood cell count which is a good sign that there is no overwhelming infection of the wound site at this time. Discharge - Discharge Clinical Impression: MRSA infection, Cellulitis of occipital region of scalp Condition: Stable Disposition: HOME, SELF-CARE Instructions: MRSA Cellulitis ([facility]), Post Incision and Drainage, Antibiotic Therapy ([facility]) Additional Instructions: Continue same antibiotics that you are currently taking and continue dressing changes as appropriate. Follow-up with the wound clinic on Saturday. Take Percocet tablet as needed for pain. Prescriptions: Oxycodone HCl/Acetaminophen [Percocet 5-325 mg Tablet] 1 tab PO Q8H PRN #15 tablet PRN Reason: For Pain Scale 4-5 Referrals: SOY ARMSTRONG MD [Primary Care Provider] - Follow up as needed
[2019-07-30 16:02] VITALS: BP 138/102
== END 2019-07-30 15:59 | disposition home or self-care (01) ==
LOC: ER 12:59
DX: A49.02 Methicillin resistant Staphylococcus aureus infection, unspecified site (principal); L03.811 Cellulitis of head [any part, except face]; M54.2 Cervicalgia; E11.9 Type 2 diabetes mellitus without complications; I10 Essential (primary) hypertension; J45.909 Unspecified asthma, uncomplicated; Z98.890 Other specified postprocedural states; Z72.0 Tobacco use; Z88.1 Allergy status to other antibiotic agents; Z88.8 Allergy status to other drugs, medicaments and biological substances; Z88.0 Allergy status to penicillin
CPT/HCPCS: 36415; 80048; 85025; 99283

== ENCOUNTER 2019-08-02 18:59 | Emergency (ER) | payer MEDICAID ==
[2019-08-02 19:03] VITALS: BP 147/79
[2019-08-02] MEDS ORDERED: OXYCODONE-ACETAMINOPHEN 5-325 MG TABLET PO ONE (20:01)
--- NOTE | 2019-08-02 20:04 | ER Document Report ---
ED Medical Screen (RME) - General Chief Complaint: Headache Stated Complaint: HEADACHE Time Seen by Provider: 08/02/19 19:57 Primary Care Provider: SOY ARMSTRONG MD [Primary Care Provider] - Follow up as needed Notes: Patient is a 43-year-old male who presents the emergency department with a chief complaint of a headache. He was admitted on July 18 for scalp abscess. He states he has been coming to the emergency department and gets a few medications doses of pain medication, but ends up running out. He is to follow-up with the wound clinic, but has not followed up yet. Exam: Wound noted to back of the head. I have greeted and performed a rapid initial assessment of this patient. A comprehensive ED assessment and evaluation of the patient, analysis of test results and completion of medical decision making process will be conducted by an additional ED providers. TRAVEL OUTSIDE OF THE [place] IN LAST 30 DAYS: No - Related Data Allergies/Adverse Reactions: sulfamethoxazole [From Bactrim] Allergy (Severe, Verified 07/30/19 13:26) Swelling of Throat trimethoprim [From Bactrim] Allergy (Severe, Verified 07/30/19 13:26) Swelling of Throat ketorolac tromethamine [From Toradol] Allergy (Verified 07/30/19 13:26) Penicillins Allergy (Verified 07/30/19 13:26) codeine [Codeine] Adverse Reaction (Verified 07/30/19 13:26) Nausea tramadol Adverse Reaction (Verified 07/30/19 13:26) tramadol HCl [From Ultram] Adverse Reaction (Verified 07/30/19 13:26) Nausea Past Medical History - Social History Family history: Reviewed & Not Pertinent - Past Medical History Cardiac Medical History: Reports: Hx Hypertension Denies: Hx Heart Attack, Hx Hypercholesterolemia, Hx Peripheral Vascular Disease Pulmonary Medical History: Reports: Hx Asthma Denies: Hx Tuberculosis Endocrine Medical History: Reports: Hx Diabetes Mellitus Type 1, Hx Diabetes Mellitus Type 2 Renal/ Medical History: Reports: Hx Kidney Stones. Denies: Hx Peritoneal Dialysis GI Medical History: Reports: Hx Gastroesophageal Reflux Disease Musculoskeltal Medical History: Reports Hx Arthritis - chronic back pain Skin Medical History: Reports Hx MRSA Psychiatric Medical History: Reports: Hx Anxiety, Hx Attention Deficit Hyperactivity Disorder, Hx Bipolar Disorder, Hx Depression, Hx Schizophrenia Infectious Medical History: Reports: Hx MRSA Past Surgical History: Reports: Hx Cholecystectomy, Hx Orthopedic Surgery - r pinkie, L leg fx as child - Immunizations Hx Diphtheria, Pertussis, Tetanus Vaccination: Yes - 11/01/12 Physical Exam - Vital signs Vitals: Temp Pulse Resp BP Pulse Ox 98.9 F 106 H 18 147/79 H 99 08/02/19 19:02 08/02/19 19:02 08/02/19 19:02 08/02/19 19:02 08/02/19 19:02 Course - Vital Signs Vital signs: Temp Pulse Resp BP Pulse Ox 98.9 F 106 H 18 147/79 H 99 08/02/19 19:02 08/02/19 19:02 08/02/19 19:02 08/02/19 19:02 08/02/19 19:02 Doctor's Discharge - Discharge Referrals: SOY ARMSTRONG MD [Primary Care Provider] - Follow up as needed
[2019-08-02 20:36] LABS: ABSOLUTE BASOPHILS # (AUTO) 0.1 10^3/uL (0.0-0.2); ABSOLUTE EOSINOPHILS # (AUTO) 0.2 10^3/uL (0.0-0.6); ABSOLUTE LYMPHOCYTES (AUTO) 2.3 10^3/uL (0.5-4.7); ABSOLUTE MONOCYTES (AUTO) 0.4 10^3/uL (0.1-1.4); ABSOLUTE NEUT (AUTO) 9.1 10^3/uL (1.7-8.2); BASOPHILS % (AUTO) 1.1 % (0-2); EOSINOPHILS % (AUTO) 1.4 % (0-6); HEMATOCRIT 42.7 % (37.9-51.0); HEMOGLOBIN 14.9 g/dL (13.5-17.0); LYMPHOCYTES % (AUTO) 19.1 % (13-45); MEAN CORPUSCULAR HGB CONC 34.8 g/dL (32.0-36.0); MEAN CORPUSCULAR VOLUME 83 fl (80-97); MONOCYTES % (AUTO) 3.1 % (3-13); PLATELET COUNT 278 10^3/uL (150-450); RED BLOOD COUNT 5.13 10^6/uL (4.35-5.55); RED CELL DISTRIBUTION WIDTH 13.6 % (11.5-14.0); SEGMENTED NEUTROPHILS % (AUTO) 75.3 % (42-78); TOTAL CELLS COUNTED % (AUTO) 100 %; WHITE BLOOD COUNT 12.1 10^3/uL (4.0-10.5)
[2019-08-02 20:56] LABS: ALBUMIN 4.2 g/dL (3.5-5.0); ALKALINE PHOSPHATASE 48 U/L (38-126); ANION GAP 10 (5-19); ASPARTATE AMINO TRANSFERASE 24 U/L (17-59); BILIRUBIN,DIRECT 0.1 mg/dL (0.0-0.4); BILIRUBIN,TOTAL 0.9 mg/dL (0.2-1.3); BLOOD UREA NITROGEN 15 mg/dL (7-20); CALCIUM 9.4 mg/dL (8.4-10.2); CARBON DIOXIDE 26 mmol/L (22-30); CHLORIDE 105 mmol/L (98-107); GLUCOSE 123 mg/dL (75-110); POTASSIUM 4.4 mmol/L (3.6-5.0); TOTAL PROTEIN 7.4 g/dL (6.3-8.2)
--- NOTE | 2019-08-02 22:48 | ER Document Report ---
ED General - General Chief Complaint: Post Surgical Pain Stated Complaint: HEADACHE Time Seen by Provider: 08/02/19 19:57 Primary Care Provider: SOY ARMSTRONG MD [Primary Care Provider] - Follow up as needed TRAVEL OUTSIDE OF THE [place] IN LAST 30 DAYS: No - Related Data Allergies/Adverse Reactions: sulfamethoxazole [From Bactrim] Allergy (Severe, Verified 07/30/19 13:26) Swelling of Throat trimethoprim [From Bactrim] Allergy (Severe, Verified 07/30/19 13:26) Swelling of Throat ketorolac tromethamine [From Toradol] Allergy (Verified 07/30/19 13:26) Penicillins Allergy (Verified 07/30/19 13:26) codeine [Codeine] Adverse Reaction (Verified 07/30/19 13:26) Nausea tramadol Adverse Reaction (Verified 07/30/19 13:26) tramadol HCl [From Ultram] Adverse Reaction (Verified 07/30/19 13:26) Nausea Home Medications: METFORMIN, ANTIBIOTIC, Past Medical History - Social History Smoking Status: Smoker,Current Status Unk Chew tobacco use (# tins/day): Yes Family History: Reviewed & Not Pertinent, CAD, Hyperlipidemia, Hypertension Patient has suicidal ideation: No Patient has homicidal ideation: No - Past Medical History Cardiac Medical History: Reports: Hx Hypertension Denies: Hx Heart Attack, Hx Hypercholesterolemia, Hx Peripheral Vascular Disease Pulmonary Medical History: Reports: Hx Asthma Denies: Hx Tuberculosis Endocrine Medical History: Reports: Hx Diabetes Mellitus Type 1, Hx Diabetes Mellitus Type 2 Renal/ Medical History: Reports: Hx Kidney Stones. Denies: Hx Peritoneal Dialysis GI Medical History: Reports: Hx Gastroesophageal Reflux Disease Musculoskeletal Medical History: Reports Hx Arthritis - chronic back pain Skin Medical History: Reports Hx MRSA Psychiatric Medical History: Reports: Hx Anxiety, Hx Attention Deficit Hyperactivity Disorder, Hx Bipolar Disorder, Hx Depression, Hx Schizophrenia Infectious Medical History: Reports: Hx MRSA Past Surgical History: Reports: Hx Cholecystectomy, Hx Orthopedic Surgery - r pinkie, L leg fx as child - Immunizations Hx Diphtheria, Pertussis, Tetanus Vaccination: Yes - 11/01/12 Physical Exam - Vital signs Vitals: Temp Pulse Resp BP Pulse Ox 98.9 F 106 H 18 147/79 H 99 08/02/19 19:02 08/02/19 19:02 08/02/19 19:02 08/02/19 19:02 08/02/19 19:02 - Notes Notes: Patient presents emergency department with multiple complaints complaint #1 is headache been going on for [place]. He was admitted to the hospital with a scalp abscess and hospitalized for several days and discharged home on antibiotics. Referred to the wound clinic unable to get an appointment. He says he is changing the dressings daily with minimal drainage. Is been persistent since the surgery rating down the right side of his neck and in his chest. Been here multiple times over the past several days with several prescriptions for narcotics last refill was on the second which was supposed to last him for 5 days but he says he ran out denies any fevers with this. No abnormal vision. The pain in his chest is radiating down from the right side of his neck over the right anterior chest and has been there since the surgery. Describes as a burning sensation. He has no fevers cough shortness of breath associated with this. Says the symptoms are different from his reflux Also complaining of some right-sided abdominal pain is stabbing sensation is been going on for 3 days. Been associated with some nausea no vomiting. She has been a little bit constipated but had a normal bowel movement this morning is been good and the pain may get a little bit worse when he eats but he has been able to eat. Today the stools were dark. Has any previous history of peptic ulcer. He has no blood in the stools. Does report he has been taking 4 Aleve daily for the next for the last 2 days Past medical history sniffing for diabetes no hypertension or heart disease. Social history he does not smoke but does dip tobacco. He does not drink Review of systems pertinent positives and negatives in HPI otherwise all the systems were reviewed and acutely negative PHYSICIAN EXAM -vital signs are noted triage note and note from triage reviewed GENERAL: Well-appearing, well-nourished and in __no acute distress____ HEAD: normocephalic. He is got a large wound on the similar area of the previous surgery was. There is some fibrinous exudate present there is no drainage or surrounding redness he did some tenderness in the area but no crepitus. The tenderness extends down his neck into the right trapezius muscle previous muscle EYES: Pupils equal round and reactive to light, extraocular movements intact, sclera anicteric, conjunctiva are normal. ENT: nares patent, oropharynx clear without exudates. Moist mucous membranes. NECK: supple tender in the midline no step-off or crepitus and full range of motion no meningeal signs LUNGS: Breath sounds clear to auscultation bilaterally and equal. No wheezes rales or rhonchi. Chest wall tenderness HEART: Regular rate and rhythm without murmurs ABDOMEN: Soft, minimal right upper quadrant and epigastric pain the lower abdomen is nontender EXTREMITIES: No deformity, no edema. NEUROLOGICAL: Alert and oriented x4. Cranial nerves he has symmetrical smile facies and shoulder shrug. His motor strength is 5/5 bilaterally in the upper and lower extremities. Toes downgoing. Sensation is intact to light touch is a negative Romberg and normal gait PSYCH: Normal mood, normal affect. SKIN: Warm, Dry, normal turgor, no rashes or lesions noted. BACK-nontender in the midline Rectal no external masses. On digital exam is nontender brown stool that is slightly heme positive \ Differential diagnosis neck pain gastritis as the patient constipation and internal hemorrhoids Course - Re-evaluation Re-evalutation: 08/03/19 02:21 ED patient was given a dose of oxycodone in triage. After my exam he is requesting additional pain medicines. I asked him about the prescription he received for Percocet second. It was supposed to last him for 5 days but he says he ran out because he is taking it every 4 hours as the directions indicated. However I reviewed the prescription and it was for 1 tablet every 8 hours was reviewed his previous charts he was given 6 Percocet on the 15 on the I did order Tylenol for the patient however he refused to take it and got med and started cursing and walked out I did review his inpatient chart. He does have a long psychiatric history. Apparently he has been banned from several clinics in the area because of his hostile behavior. He does have a history of narcotic abuse and was given referrals to outpatient treatment for cardiac abuse but refused. Last admission was found with cocaine in his system Medical decision making patient presents with persistent scalp pain following a I&D. Will refer to the wound clinic and will need follow-up there. The wound is not secondarily infected at this time. Neck pain is probably related to the previous surgery as well as the chest pain is x-ray is negative I see lump no life-threatening cause of his chest pain. Has good O2 sats he is constipated I suspect he probably had a small anal fissure and then a true GI bleed patient a ppeared to be stable at the time he walked out - Vital Signs Vital signs: Temp Pulse Resp BP Pulse Ox 98.9 F 106 H 18 147/79 H 99 08/02/19 19:02 08/02/19 19:02 08/02/19 19:02 08/02/19 19:02 08/02/19 19:02 - Laboratory Result Diagrams: 08/02/19 20:17 08/02/19 20:17 Laboratory results interpreted by me: 08/02/19 08/02/19 20:17 20:17 WBC 12.1 H Absolute Neuts (auto) 9.1 H Glucose 123 H 08/03/19 02:21 Labs were noted white count slightly elevated but is been running high hemoglobin is at his baseline - Diagnostic Test Radiology reviewed: Reports reviewed Discharge - Discharge Clinical Impression: Cellulitis of occipital region of scalp, History of drug abuse, Heme positive stool Constipation Qualifiers: Constipation type: drug induced constipation Qualified Code(s): K59.03 - Drug induced constipation Condition: Stable Disposition: ELOPED Referrals: SOY ARMSTRONG MD [Primary Care Provider] - Follow up as needed
[2019-08-02] MEDS ORDERED: ACETAMINOPHEN 325 MG TABLET PO ONE ×2 (22:58→23:08)
--- NOTE | 2019-08-02 23:01 | RADIOLOGY REPORT (SQ) ---
EXAM DESCRIPTION: XR ABDOMEN 1 VIEW (KUB) COMPLETED DATE/TME: 08/02/2019 22:20 CLINICAL HISTORY: 43 years, Male, Abdominal pain COMPARISON: None. NUMBER OF VIEWS: Two TECHNIQUE: Two frontal radiographs of the abdomen were acquired. LIMITATIONS: None. FINDINGS: Gas and a mild amount of stool are noted throughout the large bowel. Scattered nondilated loops of small bowel are also visible throughout the abdomen. Surgical clips project over the right upper quadrant. No significant diaphragmatic free air. No suspicious osseous anomalies or soft tissue calcifications. IMPRESSION: Nonobstructive bowel gas pattern. Mild colonic stool load. copyright 2010 [employer]- All Rights Reserved
--- NOTE | 2019-08-02 23:02 | RADIOLOGY REPORT (SQ) ---
XR CHEST 2 VIEWS EXAM DATE: 08/02/2019 10:19 PM [employer] HISTORY: Chest pain. COMPARISON: None. FINDINGS: Normal heart size without pulmonary edema. The lungs are clear. No pleural effusions or pneumothorax. No acute bony findings are seen. IMPRESSION: No evidence of acute cardiopulmonary disease.
== END 2019-08-02 23:20 | disposition left against medical advice (07) ==
LOC: ER 18:59
DX: L03.811 Cellulitis of head [any part, except face] (principal); K59.03 Drug induced constipation; R19.5 Other fecal abnormalities; G89.18 Other acute postprocedural pain; R51 Headache; F17.200 Nicotine dependence, unspecified, uncomplicated; I10 Essential (primary) hypertension; E11.9 Type 2 diabetes mellitus without complications; Z88.3 Allergy status to other anti-infective agents; Z88.0 Allergy status to penicillin; Z88.6 Allergy status to analgesic agent; Z90.49 Acquired absence of other specified parts of digestive tract; Z86.14 Personal history of Methicillin resistant Staphylococcus aureus infection; Z87.442 Personal history of urinary calculi
CPT/HCPCS: 36415; 71046; 74018; 80053; 85025; 99281

== ENCOUNTER 2019-08-04 17:50 | Emergency (ER) | payer MEDICAID ==
[2019-08-04 18:10] VITALS: BP 139/82
--- NOTE | 2019-08-04 18:30 | ER Document Report ---
ED Medical Screen (RME) - General Chief Complaint: Head Injury Stated Complaint: HEAD PAIN, ABDOMINAL PAIN Time Seen by Provider: 08/04/19 18:25 Primary Care Provider: SOY ARMSTRONG MD [Primary Care Provider] - Follow up as needed Mode of Arrival: Ambulatory Information source: Patient Notes: 43-year-old male presented to ED for complaint of nausea vomiting abdominal pain periumbilical. He has had his gallbladder out. He states he had he had surgery to remove a lot of tissue from his back of his head for each area on July 18. He then developed nausea vomiting and abdominal pain. He states he was seen Saturday in the emergency room and they gave him Tylenol even though he stated that he told him he was allergic to Tylenol. He states he was upset with whoever was taking care of him so he eloped and went home. He states he is continued to have abdominal pain nausea and vomiting. He states when he was seen here Saturday they told him he had blood in his stools. He states states it is very painful in his stomach to go to the bathroom. He states it also feels like somebody is hitting his head with a sledgehammer. He states they did not cut his skull. I have greeted and performed a rapid initial assessment of this patient. A comprehensive ED assessment and evaluation of the patient, analysis of test results and completion of medical decision making process will be conducted by an additional ED providers. TRAVEL OUTSIDE OF THE [place] IN LAST 30 DAYS: No - Related Data Allergies/Adverse Reactions: sulfamethoxazole [From Bactrim] Allergy (Severe, Verified 08/04/19 18:25) Swelling of Throat trimethoprim [From Bactrim] Allergy (Severe, Verified 08/04/19 18:25) Swelling of Throat ketorolac tromethamine [From Toradol] Allergy (Verified 08/04/19 18:25) Penicillins Allergy (Verified 08/04/19 18:25) codeine [Codeine] Adverse Reaction (Verified 08/04/19 18:25) Nausea tramadol Adverse Reaction (Verified 08/04/19 18:25) tramadol HCl [From Ultram] Adverse Reaction (Verified 08/04/19 18:25) Nausea Past Medical History - Social History Family history: Reviewed & Not Pertinent - Past Medical History Cardiac Medical History: Reports: Hx Hypertension Denies: Hx Heart Attack, Hx Hypercholesterolemia, Hx Peripheral Vascular Disease Pulmonary Medical History: Reports: Hx Asthma Denies: Hx Tuberculosis Endocrine Medical History: Reports: Hx Diabetes Mellitus Type 1, Hx Diabetes Mellitus Type 2 Renal/ Medical History: Reports: Hx Kidney Stones. Denies: Hx Peritoneal Dial ysis GI Medical History: Reports: Hx Gastroesophageal Reflux Disease Musculoskeltal Medical History: Reports Hx Arthritis - chronic back pain Skin Medical History: Reports Hx MRSA Psychiatric Medical History: Reports: Hx Anxiety, Hx Attention Deficit Hyperactivity Disorder, Hx Bipolar Disorder, Hx Depression, Hx Schizophrenia Infectious Medical History: Reports: Hx MRSA Past Surgical History: Reports: Hx Cholecystectomy, Hx Orthopedic Surgery - r pinkie, L leg fx as child - Immunizations Hx Diphtheria, Pertussis, Tetanus Vaccination: Yes - 11/01/12 Physical Exam - Vital signs Vitals: Temp Pulse Resp BP Pulse Ox 99.1 F 102 H 16 139/82 H 97 08/04/19 18:08 08/04/19 18:08 08/04/19 18:08 08/04/19 18:08 08/04/19 18:08 Course - Vital Signs Vital signs: Temp Pulse Resp BP Pulse Ox 99.1 F 102 H 16 139/82 H 97 08/04/19 18:08 08/04/19 18:08 08/04/19 18:08 08/04/19 18:08 08/04/19 18:08 Doctor's Discharge - Discharge Referrals: SOY ARMSTRONG MD [Primary Care Provider] - Follow up as needed
[2019-08-04] MEDS ORDERED: OXYCODONE HCL IR 5 MG TABLET PO ONE (18:32)
[2019-08-04 18:48] LABS: ABSOLUTE BASOPHILS # (AUTO) 0.1 10^3/uL (0.0-0.2); ABSOLUTE EOSINOPHILS # (AUTO) 0.2 10^3/uL (0.0-0.6); ABSOLUTE LYMPHOCYTES (AUTO) 1.9 10^3/uL (0.5-4.7); ABSOLUTE MONOCYTES (AUTO) 0.4 10^3/uL (0.1-1.4); ABSOLUTE NEUT (AUTO) 6.8 10^3/uL (1.7-8.2); BASOPHILS % (AUTO) 1.2 % (0-2); EOSINOPHILS % (AUTO) 2.3 % (0-6); HEMOGLOBIN 15.3 g/dL (13.5-17.0); LYMPHOCYTES % (AUTO) 20.1 % (13-45); MEAN CORPUSCULAR HEMOGLOBIN 29.2 pg (27.0-33.4); MEAN CORPUSCULAR HGB CONC 34.8 g/dL (32.0-36.0); MEAN CORPUSCULAR VOLUME 84 fl (80-97); MONOCYTES % (AUTO) 4.3 % (3-13); PLATELET COUNT 249 10^3/uL (150-450); RED BLOOD COUNT 5.25 10^6/uL (4.35-5.55); RED CELL DISTRIBUTION WIDTH 13.4 % (11.5-14.0); SEGMENTED NEUTROPHILS % (AUTO) 72.1 % (42-78); TOTAL CELLS COUNTED % (AUTO) 100 %; WHITE BLOOD COUNT 9.5 10^3/uL (4.0-10.5)
--- NOTE | 2019-08-04 19:01 | RADIOLOGY REPORT (SQ) ---
EXAM DESCRIPTION: ACUTE ABDOMEN SERIES COMPLETED DATE/TIME: 08/04/2019 6:44 pm REASON FOR STUDY: abdominal pain COMPARISON: CT abdomen pelvis 05/24/2016 Abdominal films 05/23/2016, 06/01/2017, 06/02/2020 NUMBER OF VIEWS: Three views. TECHNIQUE: Frontal chest, supine abdomen and upright abdomen radiographic images acquired. LIMITATIONS: None. FINDINGS: CHEST: Lungs clear of infiltrates. Cardiac silhouette size, sneha unremarkable FREE AIR: None. No abnormal gas collections. BOWEL GAS PATTERN: Nonobstructive pattern. No dilated loops or air fluid levels. CALCIFICATIONS: No suspicious calcifications. HARDWARE: Clips right upper quadrant post cholecystectomy SOFT TISSUES: No gross mass or suggestion of organomegaly. BONES: No acute fracture. No worrisome bone lesions. OTHER: No other significant finding. IMPRESSION: NO RADIOGRAPHIC EVIDENCE FOR ACUTE ABDOMINAL DISEASE. TECHNICAL DOCUMENTATION: JOB ID: [id number] [facility] [employer]- All Rights Reserved Reading location - IP/workstation name: [email or web address]
[2019-08-04 19:07] LABS: ALBUMIN 4.3 g/dL (3.5-5.0); ALKALINE PHOSPHATASE 48 U/L (38-126); ANION GAP 12 (5-19); ASPARTATE AMINO TRANSFERASE 25 U/L (17-59); BILIRUBIN,DIRECT 0.2 mg/dL (0.0-0.4); BILIRUBIN,TOTAL 1.3 mg/dL (0.2-1.3); BLOOD UREA NITROGEN 21 mg/dL (7-20); CALCIUM 9.4 mg/dL (8.4-10.2); CARBON DIOXIDE 27 mmol/L (22-30); CHLORIDE 101 mmol/L (98-107); GLUCOSE 187 mg/dL (75-110); POTASSIUM 4.2 mmol/L (3.6-5.0); TOTAL PROTEIN 7.6 g/dL (6.3-8.2)
[2019-08-04 19:08] LABS: APPEARANCE,URINE CLEAR; BILIRUBIN,URINE NEGATIVE (NEGATIVE); COLOR,URINE YELLOW; GLUCOSE, URINE NEGATIVE (NEGATIVE); KETONES,URINE NEGATIVE (NEGATIVE); PROTEIN,URINE NEGATIVE (NEGATIVE); URINE SPECIFIC GRAVITY 1.026
--- NOTE | 2019-08-04 22:31 | ER Document Report ---
ED General - General Chief Complaint: Abdominal Pain Stated Complaint: HEAD PAIN, ABDOMINAL PAIN Time Seen by Provider: 08/04/19 18:25 Primary Care Provider: SOY ARMSTRONG MD [Primary Care Provider] - Follow up as needed Mode of Arrival: Ambulatory Information source: Patient Notes: 43-year-old male presents to the emergency department with complaint of pain at the incision site on the right posterior scalp region. He had the procedure done sometime ago, apparently has not been able to get into the wound care clinic and does not have a follow-up with his surgeon until next week. He is here tonight because of pain at the site. He was seen on July 30 and given a prescription for opioid pain medications approximately 15 tablets and he has had multiple ER visits requesting pain medicines. He is completing antibiotics for the wound and it has not completely closed over. TRAVEL OUTSIDE OF THE [place] IN LAST 30 DAYS: No - Related Data Allergies/Adverse Reactions: sulfamethoxazole [From Bactrim] Allergy (Severe, Verified 08/04/19 18:25) Swelling of Throat trimethoprim [From Bactrim] Allergy (Severe, Verified 08/04/19 18:25) Swelling of Throat ketorolac tromethamine [From Toradol] Allergy (Verified 08/04/19 18:25) Penicillins Allergy (Verified 08/04/19 18:25) codeine [Codeine] Adverse Reaction (Verified 08/04/19 18:25) Nausea tramadol Adverse Reaction (Verified 08/04/19 18:25) tramadol HCl [From Ultram] Adverse Reaction (Verified 08/04/19 18:25) Nausea Past Medical History - General Information source: Patient - Social History Smoking Status: Unknown if Ever Smoked Family History: Reviewed & Not Pertinent, CAD, Hyperlipidemia, Hypertension Patient has suicidal ideation: No Patient has homicidal ideation: No - Past Medical History Cardiac Medical History: Reports: Hx Hypertension Denies: Hx Heart Attack, Hx Hypercholesterolemia, Hx Peripheral Vascular Disease Pulmonary Medical History: Reports: Hx Asthma Denies: Hx Tuberculosis Endocrine Medical History: Reports: Hx Diabetes Mellitus Type 1, Hx Diabetes Mellitus Type 2 Renal/ Medical History: Reports: Hx Kidney Stones. Denies: Hx Peritoneal Dialysis GI Medical History: Reports: Hx Gastroesophageal Reflux Disease Musculoskeletal Medical History: Reports Hx Arthritis - chronic back pain Skin Medical History: Reports Hx MRSA Psychiatric Medical History: Reports: Hx Anxiety, Hx Attention Deficit Hyperactivity Disorder, Hx Bipolar Disorder, Hx Depression, Hx Schizophrenia Infectious Medical History: Reports: Hx MRSA Past Surgical History: Reports: Hx Cholecystectomy, Hx Orthopedic Surgery - r pinkie, L leg fx as child - Immunizations Hx Diphtheria, Pertussis, Tetanus Vaccination: Yes - 11/01/12 Review of Systems - Review of Systems Notes: Constitutional: Negative for fever. HENT: Negative for sore throat. Eyes: Negative for visual changes. Cardiovascular: Negative for chest pain. Respiratory: Negative for shortness of breath. Gastrointestinal: + Abdominal pain Genitourinary: Negative for dysuria. Musculoskeletal: + Tenderness in the right posterior cervical region Skin: + Open wound, right occipital region. Neurological: Negative for headaches, weakness or numbness. 10 point ROS negative except as marked above and in HPI. Physical Exam - Vital signs Vitals: Temp Pulse Resp BP Pulse Ox 99.1 F 102 H 16 139/82 H 97 08/04/19 18:08 08/04/19 18:08 08/04/19 18:08 08/04/19 18:08 08/04/19 18:08 - Notes Notes: PHYSICAL EXAMINATION: Physical Exam: General: Well-nourished well-developed male in no acute distress HEENT: NC/AT, pupils equal round and reactive to light, MM moist,nares clear, Neck: Tenderness in the right paracervical, upper trapezius muscle group, good range of motion, supple, no adenopathy, no masses. Lungs: clear, no wheezing, no rales no rhonchi CVS: Regular rate and rhythm no murmur gallop or rub Abdomen: Soft active nontender, no masses, no hepatosplenomegaly Ext: No edema clubbing or cyanosis. Neuro: Alert and responsive, moving all 4 extremities on command, cranial nerves intact. Skin: Open wound at the base of the occipital region right neck and oval-shaped vertical wound with no active drainage and no foul smelling produce, no rash PSYCH: Normal mood, normal affect. Course - Re-evaluation Re-evalutation: 08/04/19 22:34 Review of the labs as well as the x-ray reveals no acute findings. The ozzy ent's hemoglobin hematocrit are stable, x-ray is unremarkable, white count is normal. I have explained this to the patient and am offering a GI cocktail for his abdominal discomfort. I explained to him that the long-term management of the patient's pain cannot be done through the emergency department. He was quite upset. I have suggested that Tylenol could be used to decrease the severity of the pain. 08/04/19 22:50 Patient states that he does not want anything from this hospital and got up and put on his shoes. He did not take the discharge paperwork nor the prescription and walked out. - Vital Signs Vital signs: Temp Pulse Resp BP Pulse Ox 99.1 F 102 H 16 139/82 H 97 08/04/19 18:08 08/04/19 18:08 08/04/19 18:08 08/04/19 18:08 08/04/19 18:08 - Laboratory Result Diagrams: 08/04/19 18:35 08/04/19 18:35 Laboratory results interpreted by me: 08/04/19 08/04/19 18:35 18:50 BUN 21 H Glucose 187 H Urine Urobilinogen 2.0 H Discharge - Discharge Clinical Impression: MRSA infection Open wound involving head with neck, uncomplicated Qualifiers: Encounter type: subsequent encounter Qualified Code(s): S01.90XD - Unspecified open wound of unspecified part of head, subsequent encounter GERD (gastroesophageal reflux disease) Qualifiers: Esophagitis presence: esophagitis presence not specified Qualified Code(s): K21.9 - Gastro-esophageal reflux disease without esophagitis Disposition: HOME, SELF-CARE Instructions: Abdominal Pain ([facility]), Antispasmodics ([facility]) Additional Instructions: Your symptoms appear to be most consistent with stomach or upper intestinal irritation. Please begin taking famotidine 40 mg in the morning and 40 mg at night. You may also take medicine such as Pepto-Bismol or Tums to assist with your pain. Please also return if you have any additional symptoms that are concerning to you. You need to avoid smoking, sodas, tea, coffee, alcohol, spicy foods, and acidic foods such as citrus fruits, tomato based products, berries, and most fruit juices. Okay he had a rafa Referrals: SOY ARMSTRONG MD [Primary Care Provider] - Follow up as needed
[2019-08-04] MEDS ORDERED: ACETAMINOPHEN 325 MG TABLET PO ONE (22:42)
[2019-08-04] MEDS ORDERED: METOCLOPRAMIDE HCL ORAL SOLN 10 MG/10 ML UDCUP PO ONE (22:42)
[2019-08-04] MEDS ORDERED: LIDOCAINE 2% VISCOUS SOLN 20 ML UDCUP PO ONE (22:42)
[2019-08-04] MEDS ORDERED: MAG HYDROX/AL HYDROX/SIMETH SUSP 30 ML UDCUP PO ONE (22:42)
== END 2019-08-04 22:57 | disposition home or self-care (01) ==
LOC: ER 17:50
DX: A49.02 Methicillin resistant Staphylococcus aureus infection, unspecified site (principal); S01.90XA Unspecified open wound of unspecified part of head, initial encounter; S11.90XA Unspecified open wound of unspecified part of neck, initial encounter; X58.XXXA Exposure to other specified factors, initial encounter; K21.9 Gastro-esophageal reflux disease without esophagitis; R10.33 Periumbilical pain; I10 Essential (primary) hypertension; J45.909 Unspecified asthma, uncomplicated; E11.9 Type 2 diabetes mellitus without complications; Z98.890 Other specified postprocedural states; Z88.1 Allergy status to other antibiotic agents; Z88.8 Allergy status to other drugs, medicaments and biological substances; Z88.0 Allergy status to penicillin
CPT/HCPCS: 99282; 36415; 85025; 80053; 81001; 74022; J3490

== ENCOUNTER 2019-09-04 18:23 | Emergency (ER) | payer MEDICAID ==
--- NOTE | 2019-09-04 18:45 | ER Document Report ---
ED Medical Screen (RME) - General Chief Complaint: Abscess Stated Complaint: ABSCESSES/HEAD AND FACE Time Seen by Provider: 09/04/19 18:40 Primary Care Provider: SOY ARMSTRONG MD [Primary Care Provider] - Follow up as needed Notes: 43-year-old male with history of diabetes presents for multiple abscesses. Patient states they popped up approximately 4 days ago. Patient had surgery to an abscess to the back of his head around [place] time. Patient has new abscess to the left side of his mouth and to the back of his scalp. Patient states he is diabetic. Area has surrounding erythema. I have greeted and performed a rapid initial assessment of this patient. A comprehensive ED assessment and evaluation of the patient, analysis of test results and completion of the medical decision making process with be conducted by additional ED providers. TRAVEL OUTSIDE OF THE [place] IN LAST 30 DAYS: No - Related Data Allergies/Adverse Reactions: sulfamethoxazole [From Bactrim] Allergy (Severe, Verified 09/04/19 18:40) Swelling of Throat trimethoprim [From Bactrim] Allergy (Severe, Verified 09/04/19 18:40) Swelling of Throat ketorolac tromethamine [From Toradol] Allergy (Verified 09/04/19 18:40) Penicillins Allergy (Verified 09/04/19 18:40) codeine [Codeine] Adverse Reaction (Verified 09/04/19 18:40) Nausea tramadol Adverse Reaction (Verified 09/04/19 18:40) tramadol HCl [From Ultram] Adverse Reaction (Verified 09/04/19 18:40) Nausea Past Medical History - Social History Family history: Reviewed & Not Pertinent - Past Medical History Cardiac Medical History: Reports: Hx Hypertension Denies: Hx Heart Attack, Hx Hypercholesterolemia, Hx Peripheral Vascular Disease Pulmonary Medical History: Reports: Hx Asthma Denies: Hx Tuberculosis Endocrine Medical History: Reports: Hx Diabetes Mellitus Type 1, Hx Diabetes Mellitus Type 2 Renal/ Medical History: Reports: Hx Kidney Stones. Denies: Hx Peritoneal Dialysis GI Medical History: Reports: Hx Gastroesophageal Reflux Disease Musculoskeltal Medical History: Reports Hx Arthritis - chronic back pain Skin Medical History: Reports Hx MRSA Psychiatric Medical History: Reports: Hx Anxiety, Hx Attention Deficit Hyperactivity Disorder, Hx Bipolar Disorder, Hx Depression, Hx Schizophrenia Infectious Medical History: Reports: Hx MRSA Past Surgical History: Reports: Hx Cholecystectomy, Hx Orthopedic Surgery - r pinkie, L leg fx as child - Immunizations Hx Diphtheria, Pertussis, Tetanus Vaccination: Yes - 11/01/12 Physical Exam - Vital signs Vitals: Temp Pulse Resp BP Pulse Ox 99.7 F 109 H 16 142/97 H 98 09/04/19 18:27 09/04/19 18:27 09/04/19 18:27 09/04/19 18:27 09/04/19 18:27 Course - Vital Signs Vital signs: Temp Pulse Resp BP Pulse Ox 99.7 F 109 H 16 142/97 H 98 09/04/19 18:27 09/04/19 18:27 09/04/19 18:27 09/04/19 18:27 09/04/19 18:27 Doctor's Discharge - Discharge Referrals: SOY ARMSTRONG MD [Primary Care Provider] - Follow up as needed
[2019-09-04 19:23] LABS: ABSOLUTE LYMPHOCYTES (AUTO) 0.8 10^3/uL (0.5-4.7); ABSOLUTE MONOCYTES (AUTO) 0.7 10^3/uL (0.1-1.4); ABSOLUTE NEUT (AUTO) 4.1 10^3/uL (1.7-8.2); BASOPHILS % (AUTO) 0.6 % (0-2); EOSINOPHILS % (AUTO) 0.2 % (0-6); HEMATOCRIT 43.8 % (37.9-51.0); HEMOGLOBIN 15.8 g/dL (13.5-17.0); LYMPHOCYTES % (AUTO) 14.5 % (13-45); MEAN CORPUSCULAR HEMOGLOBIN 29.8 pg (27.0-33.4); MEAN CORPUSCULAR VOLUME 83 fl (80-97); MONOCYTES % (AUTO) 11.7 % (3-13); PLATELET COUNT 200 10^3/uL (150-450); RED BLOOD COUNT 5.29 10^6/uL (4.35-5.55); RED CELL DISTRIBUTION WIDTH 13.6 % (11.5-14.0); TOTAL CELLS COUNTED % (AUTO) 100 %; WHITE BLOOD COUNT 5.7 10^3/uL (4.0-10.5)
[2019-09-04 19:28] LABS: ALBUMIN 4.6 g/dL (3.5-5.0); ALKALINE PHOSPHATASE 52 U/L (38-126); ANION GAP 11 (5-19); ASPARTATE AMINO TRANSFERASE 21 U/L (17-59); BILIRUBIN,DIRECT 0.1 mg/dL (0.0-0.4); BILIRUBIN,TOTAL 1.3 mg/dL (0.2-1.3); BLOOD UREA NITROGEN 9 mg/dL (7-20); CALCIUM 9.5 mg/dL (8.4-10.2); CARBON DIOXIDE 31 mmol/L (22-30); CHLORIDE 99 mmol/L (98-107); GLUCOSE 130 mg/dL (75-110); POTASSIUM 4.1 mmol/L (3.6-5.0); TOTAL PROTEIN 7.8 g/dL (6.3-8.2)
[2019-09-04] MEDS ORDERED: LIDOCAINE 1%/EPINEPHRINE INJ 20 ML VIAL INJ ONE (20:18)
[2019-09-04] MEDS ORDERED: MORPHINE SULFATE 10 MG/ML INJ IV ONE (20:19)
[2019-09-04] MEDS ORDERED: ONDANSETRON HCL INJ/PF 4 MG/2 ML SDV IV ONE (20:19)
[2019-09-04] MEDS ORDERED: DOXYCYCLINE HYCLATE INJ 100 MG VIAL IV ONE (20:19)
[2019-09-04] MEDS ORDERED: DIPH/PERTUSS(ACELL)/TETANUS VAC/PF 0.5 ML SYR (>=10YO) IM ONE (20:21)
--- NOTE | 2019-09-04 20:24 | ER Document Report ---
ED Skin Rash/Insect Bite/Abscs - General Chief Complaint: Abscess Stated Complaint: ABSCESSES/HEAD AND FACE Time Seen by Provider: 09/04/19 18:40 Primary Care Provider: SOY ARMSTRONG MD [Primary Care Provider] - Follow up as needed Notes: Patient is a 43-year-old male that comes emergency department for chief complai nt of 4 days of developing abscesses. He states he has 2 locations in the back of his head near the posterior scalp where he has developed tender areas he is concerned will develop into abscesses, he states just for [place] last year he had a very large abscess to the posterior scalp that was so large and had to be drained in the operating room. Patient also states he has started to get rednes s, tenderness, and swelling in the left side of his face just lateral to his mouth in the serrato. He denies fevers, vomiting, he has a history of type 2 diabetes on oral medications, he states his tetanus is not up-to-date. He has a history of hypertension, asthma, ADHD, bipolar disorder. He does have a history of MRSA, denies IV drug abuse. TRAVEL OUTSIDE OF THE [place] IN LAST 30 DAYS: No - Related Data Allergies/Adverse Reactions: sulfamethoxazole [From Bactrim] Allergy (Severe, Verified 09/04/19 18:40) Swelling of Throat trimethoprim [From Bactrim] Allergy (Severe, Verified 09/04/19 18:40) Swelling of Throat ketorolac tromethamine [From Toradol] Allergy (Verified 09/04/19 18:40) Penicillins Allergy (Verified 09/04/19 18:40) codeine [Codeine] Adverse Reaction (Verified 09/04/19 18:40) Nausea tramadol Adverse Reaction (Verified 09/04/19 18:40) tramadol HCl [From Ultram] Adverse Reaction (Verified 09/04/19 18:40) Nausea Home Medications: metformin Past Medical History - General Information source: Patient - Social History Smoking Status: Never Smoker Chew tobacco use (# tins/day): Yes Frequency of alcohol use: None Drug Abuse: None Lives with: Family Family History: Reviewed & Not Pertinent, CAD, Hyperlipidemia, Hypertension Patient has suicidal ideation: No Patient has homicidal ideation: No - Past Medical History Cardiac Medical History: Reports: Hx Hypertension Denies: Hx Heart Attack, Hx Hypercholesterolemia, Hx Peripheral Vascular Disease Pulmonary Medical History: Reports: Hx Asthma Denies: Hx Tuberculosis Endocrine Medical History: Reports: Hx Diabetes Mellitus Type 1, Hx Diabetes Mellitus Type 2 Renal/ Medical History: Reports: Hx Kidney Stones. Denies: Hx Peritoneal Dialysis GI Medical History: Reports: Hx Gastroesophageal Reflux Disease Musculoskeletal Medical History: Reports Hx Arthritis - chronic back pain Skin Medical History: Reports Hx MRSA Psychiatric Medical History: Reports: Hx Anxiety, Hx Attention Deficit Hyperactivity Disorder, Hx Bipolar Disorder, Hx Depression, Hx Schizophrenia Infectious Medical History: Reports: Hx MRSA Past Surgical History: Reports: Hx Cholecystectomy, Hx Orthopedic Surgery - r pinkie, L leg fx as child - Immunizations Hx Diphtheria, Pertussis, Tetanus Vaccination: Yes - 11/01/12 Review of Systems - Review of Systems Constitutional: No symptoms reported EENT: No symptoms reported Cardiovascular: No symptoms reported Respiratory: No symptoms reported Gastrointestinal: No symptoms reported Genitourinary: No symptoms reported Male Genitourinary: No symptoms reported Musculoskeletal: No symptoms reported Skin: See HPI Hematologic/Lymphatic: No symptoms reported Neurological/Psychological: No symptoms reported Physical Exam - Vital signs Vitals: Temp Pulse Resp BP Pulse Ox 99.7 F 109 H 16 142/97 H 98 09/04/19 18:27 09/04/19 18:27 09/04/19 18:27 09/04/19 18:27 09/04/19 18:27 - Notes Notes: GENERAL: Alert, interacts well. Slightly anxious but not in distress HEAD: Normocephalic, atraumatic. EYES: Pupils equal, round, and reactive to light. Extraocular movements intact. ENT: Oral mucosa moist, tongue midline. Oropharynx unremarkable. Airway patent. Nares patent, no nasal septal hematoma, TM's intact. The left side of the face has an area consistent with folliculitis with a fluctuant head at the base of a hair follicle, surrounding this there is induration and apparent fluctuance with some soft tissue swelling. There is erythema in this area which is mild. The inside of the cheek does not show any induration, fluctuance, or evidence that this is intruding into the mouth. Otherwise unremarkable ENT exam. NECK: Full range of motion. Supple. Trachea midline. LUNGS: Clear to auscultation bilaterally, no wheezes, rales, or rhonchi. No respiratory distress. HEART: Regular rate and rhythm. No murmur ABDOMEN: Soft, non-tender. Non-distended. EXTREMITIES: Moves all 4 extremities spontaneously. No edema, normal radial and dorsalis pedis pulses bilaterally. No cyanosis. BACK: no cervical, thoracic, lumbar midline tenderness. No saddle anesthesia, normal distal neurovascular exam. Moves all extremities in full range of motion. NEUROLOGICAL: Alert and oriented x3. Normal speech. Cranial nerves II through XII grossly intact. PSYCH: Talks anxiously about his condition, makes good eye contact, responds appropriately SKIN: There are 2 sites over the occipital scalp with fluctuant heads which appear to be very early developing abscesses, there is an old scar above this on the occipital scalp on the right from previous surgery. There is no significant cellulitis noted over the scalp. Otherwise unremarkable. Course - Re-evaluation Re-evalutation: CBC and chemistry reviewed and unremarkable. No fever. Patient has 2 early developing abscesses over the posterior scalp separate from the area that was a problem previously without significant cellulitis. In addition to this and more concerning is the developing abscess and mild surrounding cellulitis with some soft tissue swelling over the left side of the face adjacent to the mouth. This appeared to be initially a folliculitis which is developed into an abscess. I was unable to get any drainage with just an 18-gauge needle and aspiration with a syringe, therefore with patient's consent I made a small incision over the s guerda place and then was able to enter the abscess and drained about 2 cc of purulent drainage out. The area was irrigated. Patient will be placed on antibiotics, because of patient's history of severe complications from abscesses including recent surgery over the scalp because of the extensive abscess I recommended patient be rechecked here in 2 days. Discussed return precautions sooner as well. Patient and significant other state understanding and agreement. Stable at time of discharge. - Vital Signs Vital signs: Temp Pulse Resp BP Pulse Ox 99.7 F 109 H 16 142/97 H 98 09/04/19 18:27 09/04/19 18:27 09/04/19 18:27 09/04/19 18:27 09/04/19 18:27 - Laboratory Result Diagrams: 09/04/19 18:55 09/04/19 18:55 Laboratory results interpreted by me: 09/04/19 18:55 Carbon Dioxide 31 H Glucose 130 H Procedures - Incision and Drainage left face Type: Single Anesthetic type: 1% Lidocaine w/epi mL's of anesthetic: 3 Blade size: 11 I&D procedure: Chlorprep applied, Sterile dressing applied Incision Method: Incision made by scalpel Amount/type of drainage: 2 cc purlent drainage left posterior scalp Type: Single Anesthetic type: 1% Lidocaine w/epi mL's of anesthetic: 2 I&D procedure: Chlorprep applied Incision Method: Incision made by scalpel Amount/type of drainage: small amount of purulent drainage and blood right posterior scalp Type: Single Anesthetic type: 1% Lidocaine w/epi mL's of anesthetic: 2 Blade size: 11 I&D procedure: Chlorprep applied, Sterile dressing applied Incision Method: Incision made by scalpel Amount/type of drainage: small amount of purulent drainage and blood Discharge - Discharge Clinical Impression: Facial abscess, Scalp abscess Condition: Stable Disposition: HOME, SELF-CARE Additional Instructions: The abscess had been drained. Take antibiotics as prescribed, clean areas with soap and water, keep clean absorbing dressings of the areas. Because of your history of severe and complicating abscesses I recommend a repeat evaluation in 2 days. Come back if you are worse including spreading redness, fever, increased swelling, or any other concerning or worsening symptoms. Prescriptions: Doxycycline Hyclate [Vibramycin 100 mg Tablet] 100 mg PO BID 7 Days #14 tablet Referrals: SOY ARMSTRONG MD [Primary Care Provider] - Follow up as needed
[2019-09-04] MEDS ORDERED: HYDROMORPHONE HCL INJ/PF 2 MG/ML AMPULE IV ONE (21:28)
[2019-09-04] MEDS ORDERED: HYDROCODONE/ACETAMINOPHEN 5-325 MG (6 TAB/ER DISP) PO PRN (21:29)
[2019-09-04 22:30] VITALS: BP 132/97
== END 2019-09-04 22:30 | disposition home or self-care (01) ==
LOC: ER 18:23
DX: L02.01 Cutaneous abscess of face (principal); L02.811 Cutaneous abscess of head [any part, except face]; I10 Essential (primary) hypertension; E11.9 Type 2 diabetes mellitus without complications; Z88.0 Allergy status to penicillin; Z88.3 Allergy status to other anti-infective agents; Z88.6 Allergy status to analgesic agent; Z87.442 Personal history of urinary calculi; Z86.14 Personal history of Methicillin resistant Staphylococcus aureus infection; Z90.49 Acquired absence of other specified parts of digestive tract
CPT/HCPCS: 99283; 90471; 96375; 96365; 36415; 87040; 83605; 85025; 80053; 90715; 10061; J3490 ×2; J2270; J1170; J2405

== ENCOUNTER 2019-09-06 11:55 | Emergency (ER) | payer MEDICAID ==
--- NOTE | 2019-09-06 12:51 | ER Document Report ---
ED Medical Screen (RME) - General Chief Complaint: Abscess Recheck Stated Complaint: ABSCESS IN MOUTH/FACE,BACK OF HEAD Time Seen by Provider: 09/06/19 12:42 Primary Care Provider: SOY ARMSTRONG MD [Primary Care Provider] - Follow up as needed Information source: Patient Notes: Patient was advised to return today for wound recheck. Patient had an incision and drainage procedure performed 2 days ago. Patient feels as though the abscess is worsening to both the face and the occipital scalp area. Patient had an extensive abscess several months ago that required surgical drainage. Divine ent is concerned that he is having worsening despite taking antibiotics. Patient does have a history of diabetes but does not check his blood sugars at home. Patient does have a history of MRSA as well. I have greeted and performed a rapid initial assessment of this patient. A comprehensive ED assessment and evaluation of the patient, analysis of test results and completion of the medical decision making process will be conducted by additional ED providers. TRAVEL OUTSIDE OF THE [place] IN LAST 30 DAYS: No - Related Data Allergies/Adverse Reactions: sulfamethoxazole [From Bactrim] Allergy (Severe, Verified 09/04/19 18:40) Swelling of Throat trimethoprim [From Bactrim] Allergy (Severe, Verified 09/04/19 18:40) Swelling of Throat ketorolac tromethamine [From Toradol] Allergy (Verified 09/04/19 18:40) Penicillins Allergy (Verified 09/04/19 18:40) codeine [Codeine] Adverse Reaction (Verified 09/04/19 18:40) Nausea tramadol Adverse Reaction (Verified 09/04/19 18:40) tramadol HCl [From Ultram] Adverse Reaction (Verified 09/04/19 18:40) Nausea Home Medications: Metformin Past Medical History - Social History Family history: Reviewed & Not Pertinent - Past Medical History Cardiac Medical History: Reports: Hx Hypertension Denies: Hx Heart Attack, Hx Hypercholesterolemia, Hx Peripheral Vascular Disease Pulmonary Medical History: Reports: Hx Asthma Denies: Hx Tuberculosis Endocrine Medical History: Reports: Hx Diabetes Mellitus Type 1, Hx Diabetes Mellitus Type 2 Renal/ Medical History: Reports: Hx Kidney Stones. Denies: Hx Peritoneal Dialysis GI Medical History: Reports: Hx Gastroesophageal Reflux Disease Musculoskeltal Medical History: Reports Hx Arthritis - chronic back pain Skin Medical History: Reports Hx MRSA Psychiatric Medical History: Reports: Hx Anxiety, Hx Attention Deficit Hype ractivity Disorder, Hx Bipolar Disorder, Hx Depression, Hx Schizophrenia Infectious Medical History: Reports: Hx MRSA Past Surgical History: Reports: Hx Cholecystectomy, Hx Orthopedic Surgery - r pinkie, L leg fx as child - Immunizations Hx Diphtheria, Pertussis, Tetanus Vaccination: Yes - 11/01/12 Physical Exam - Vital signs Vitals: Temp Pulse Resp BP Pulse Ox 98.9 F 86 24 H 125/74 97 09/06/19 12:07 09/06/19 12:07 09/06/19 12:07 09/06/19 12:07 09/06/19 12:07 - General General appearance: Appears well, Alert Notes: Tender abscess to left side of face and to the occipital scalp area Course - Vital Signs Vital signs: Temp Pulse Resp BP Pulse Ox 98.9 F 86 24 H 125/74 97 09/06/19 12:07 09/06/19 12:07 09/06/19 12:07 09/06/19 12:07 09/06/19 12:07 Doctor's Discharge - Discharge Referrals: SOY ARMSTRONG MD [Primary Care Provider] - Follow up as needed
[2019-09-06] MEDS ORDERED: LIDOCAINE 1%/EPINEPHRINE INJ 20 ML VIAL INJ ONE (13:48)
[2019-09-06] MEDS ORDERED: OXYCODONE-ACETAMINOPHEN 5-325 MG TABLET PO ONE (14:01)
--- NOTE | 2019-09-06 14:01 | ER Document Report ---
ED Skin Rash/Insect Bite/Abscs - General Chief Complaint: Abscess Recheck Stated Complaint: ABSCESS IN MOUTH/FACE,BACK OF HEAD Time Seen by Provider: 09/06/19 12:42 Primary Care Provider: SOY ARMSTRONG MD [Primary Care Provider] - Follow up as needed Information source: Patient Notes: HPI: 43-year-old male with a history of complicated abscesses in the past who presents today with continued pain to the posterior aspect of the head in the left lower face. Patient was here 2 days ago with incision and drainage of these locations. Patient states 2 small incisions were made secondary to the facial location. Patient denies any fevers or vomiting. He has been taking the doxycycline. Patient believes that the abscesses were not fully drained completely. He denies any facial swelling or difficulty breathing or swallowing. He denies lesions to any other new locations. Patient is a diabetic. Tetanus was updated on last visit. ROS: See HPI Reviewed vital signs and nursing note as charted by RN. PHYSICAL EXAM: CONSTITUTIONAL: Alert and oriented and responds appropriately to questions. Well-appearing; well-nourished HEAD: Patient has an old scar to the right posterior occipital region consistent with prior surgery. He has what appears to be a previous incision and drainage below the scar with no tenderness or fluctuance. Patient has a tender fluctuant area to the left of this previous incision lesion that is tender and fluctuant. Minimal surrounding erythema. EYES: PERRL; Conjunctivae clear, sclerae non-icteric ENT: Patient has a small tender fluctuant area to the left lower cheek just lateral to the angle of the mouth without any obvious facial swelling or extension in the face or intraoral cavity SKIN: See above NEURO: CN 2-12 intact; 5/5 bilateral upper and lower extremity strength with sensation intact to light touch PSYCH: The patient's mood and manner are appropriate. Grooming and personal hygiene are appropriate. TRAVEL OUTSIDE OF THE [place] IN LAST 30 DAYS: No - Related Data Allergies/Adverse Reactions: sulfamethoxazole [From Bactrim] Allergy (Severe, Verified 09/04/19 18:40) Swelling of Throat trimethoprim [From Bactrim] Allergy (Severe, Verified 09/04/19 18:40) Swelling of Throat ketorolac tromethamine [From Toradol] Allergy (Verified 09/04/19 18:40) Penicillins Allergy (Verified 09/04/19 18:40) codeine [Codeine] Adverse Reaction (Verified 09/04/19 18:40) Nausea tramadol Adverse Reaction (Verified 09/04/19 18:40) tramadol HCl [From Ultram] Adverse Reaction (Verified 09/04/19 18:40) Nausea Home Medications: Metformin Past Medical History - General Information source: Patient - Social History Smoking Status: Current Every Day Smoker Family History: Reviewed & Not Pertinent, CAD, Hyperlipidemia, Hypertension Patient has suicidal ideation: No Patient has homicidal ideation: No - Past Medical History Cardiac Medical History: Reports: Hx Hypertension Denies: Hx Heart Attack, Hx Hypercholesterolemia, Hx Peripheral Vascular Disease Pulmonary Medical History: Reports: Hx Asthma Denies: Hx Tuberculosis Endocrine Medical History: Reports: Hx Diabetes Mellitus Type 1, Hx Diabetes Mellitus Type 2 Renal/ Medical History: Reports: Hx Kidney Stones. Denies: Hx Peritoneal Dialysis GI Medical History: Reports: Hx Gastroesophageal Reflux Disease Musculoskeletal Medical History: Reports Hx Arthritis - chronic back pain Skin Medical History: Reports Hx MRSA Psychiatric Medical History: Reports: Hx Anxiety, Hx Attention Deficit Hyperactivity Disorder, Hx Bipolar Disorder, Hx Depression, Hx Schizophrenia Infectious Medical History: Reports: Hx MRSA Past Surgical History: Reports: Hx Cholecystectomy, Hx Orthopedic Surgery - r pinkie, L leg fx as child - Immunizations Hx Diphtheria, Pertussis, Tetanus Vaccination: Yes - 11/01/12 Physical Exam - Vital signs Vitals: Temp Pulse Resp BP Pulse Ox 98.9 F 86 24 H 125/74 97 09/06/19 12:07 09/06/19 12:07 09/06/19 12:07 09/06/19 12:07 09/06/19 12:07 Course - Re-evaluation Re-evalutation: 09/06/19 14:00 Given the above history and physical I do believe that the abscesses were most likely incompletely drained. I will perform a repeat incision and drainage. Patient has been afebrile. Labs were ordered on the previous visit. I do not believe blood cultures are necessary. I will perform the bedside incision and drainage and then have the patient continue the antibiotics with strict return precautions and repeat follow-up here in 2 days for reassessment. I will also provide a regimen for the patient to help prevent future abscesses. 09/06/19 14:41 I had a long discussion with the patient about the cosmetic effects of the possible incision and drainage. I do not believe an intraoral approach is possible at this time here in the emergency department without possibly transfer. Patient understands and is willing to proceed with a bedside incision and drainage here. Incision and drainage successful to both abscesses. Given the facial location I did follow the smile line and placed a less than 1 cm laceration/incision to drain the abscess. Patient does have allergies to Bactrim and penicillin. He states he has taken Keflex in the past with no allergic reactions. Given the left facial location as well as the posterior head I will provide a dose of IV vancomycin. I would then also start the patient on Keflex in addition to the doxycycline at home with strict return precautions and abscess recheck. I will also provide outpatient instructions to help reduce further abscesses in the future. Patient understands the importance of follow-up with his primary care physician as well as referral to a merchant banker. - Vital Signs Vital signs: Temp Pulse Resp BP Pulse Ox 98.9 F 86 24 H 125/74 97 09/06/19 12:07 09/06/19 12:07 09/06/19 12:07 09/06/19 12:07 09/06/19 12:07 - Laboratory Laboratory results interpreted by me: 09/06/19 14:00 POC Glucose 161 H Procedures - Incision and Drainage Left Face Type: Simple Anesthetic type: 1% Lidocaine w/epi Blade size: 11 I&D procedure: Betadine prep applied, Iodoform packing placed Incision Method: Incision made by scalpel Notes: 09/06/19 14:40 Second abscess was also drained after instillation with 1% lidocaine with epinephrine to the left posterior aspect of the head. Good drainage from both. Deloculated both lesions. I packed the posterior head lesion. Discharge - Discharge Clinical Impression: Abscess of multiple sites Condition: Good Disposition: HOME, SELF-CARE Additional Instructions: Come back immediately for any fevers, vomiting, increased pain or swelling, new locations of swelling or pain, facial swelling, or any other acute problems. Please make sure that you take the doxycycline in addition to the Keflex we have provided in the pain medications only as needed. Please follow-up with your primary care physician for reassessment as well as possibly gaining a referral to dermatology. Please follow the instructions we have provided to help prevent future abscesses. You must do all the following during the same week. --Showers with Hibiclens using the nail brush under the nails twice a day for one week. --At the same time, use Bactroban I have prescribed into each nostril twice daily for a week. --Wash all linen, towels, washclothes and clothing in scorching hot water during the last two days of treatment. --Put blankets, pillows through the dryer on high heat for 10-15 mins during the last two days of treatment. --Avoid shaving for one week, purchase new razor. --Aggressive hand-washing hygiene. --Use a disinfectant to clean telephones and door handles. Prescriptions: Mupirocin [Bactroban 2% Ointment 22 gm] 22 applic TP BID #1 tube Cephalexin Monohydrate [Keflex 500 mg Capsule] 500 mg PO Q8H 5 Days #21 capsule Oxycodone HCl/Acetaminophen [Percocet 5-325 mg Tablet] 1 tab PO ASDIR PRN #12 tablet PRN Reason: Referrals: SOY ARMSTRONG MD [Primary Care Provider] - Follow up as needed
[2019-09-06] MEDS ORDERED: VANCOMYCIN HCL INJ 1000 MG VIAL IV ONE (14:39)
[2019-09-06] MEDS ORDERED: MORPHINE SULFATE 10 MG/ML INJ IV ONE ×2 (15:01→16:48)
[2019-09-06 17:32] VITALS: BP 121/72
== END 2019-09-06 17:29 | disposition home or self-care (01) ==
LOC: ER 11:55
DX: L02.01 Cutaneous abscess of face (principal); L02.811 Cutaneous abscess of head [any part, except face]; E11.9 Type 2 diabetes mellitus without complications; I10 Essential (primary) hypertension; J45.909 Unspecified asthma, uncomplicated; F17.200 Nicotine dependence, unspecified, uncomplicated; Z88.1 Allergy status to other antibiotic agents; Z88.8 Allergy status to other drugs, medicaments and biological substances; Z88.0 Allergy status to penicillin
CPT/HCPCS: 82962; 96374; 96376; 99283; J2270; J3370; J3490

== ENCOUNTER 2019-10-10 16:20 | Emergency (ER) | payer MEDICAID ==
[2019-10-10 16:27] VITALS: BP 117/69
[2019-10-10] MEDS ORDERED: LIDOCAINE 1% INJ (10 MG/ML) 10 ML MDV INJ ONE (16:30)
[2019-10-10] MEDS ORDERED: CLINDAMYCIN HCL 150 MG CAPSULE PO ONE (16:30)
[2019-10-10] MEDS ORDERED: LIDOCAINE 1% INJ-PF (10 MG/ML) 30 ML SDV INJ ONE (16:31)
--- NOTE | 2019-10-10 16:34 | ER Document Report ---
HPI - HPI Time Seen by Provider: 10/10/19 16:28 Onset: Just prior to arrival Onset/Duration: Gradual, Waxing and waning Quality of pain: Fullness, Pressure Pain Level: 5 Associated Symptoms: None Exacerbated by: Denies Recently seen / treated by doctor: Yes Notes: The patient has been seen in this department multiple times for abscesses and does not fact have a history of recurring abscesses he tested positive for MRSA I did advise him that I would be happy to go ahead and numb that area and then do an I&D. He was dissatisfied with that and wanted pain medication first I told that I was can anesthetized the area so he did not have any pain that was the medicine is willing to give him. He did ask the scene of the provider I did ask RONALD Hernanedz to going in evaluate the patient dark where went in and his course of treatment was going to be the same as mine the patient advised Marco Love as well as myself that he was going to be leaving AMA. Should be noted that the patient refused to sign any paperwork was rather belligerent cursing yelling at the nursing staff as well as myself and the other provider. - REPRODUCTIVE Reproductive: DENIES: : Past Medical History - General Information source: Patient - Social History Smoking Status: Former Smoker Chew tobacco use (# tins/day): Yes Frequency of alcohol use: None Drug Abuse: None Family History: Reviewed & Not Pertinent, CAD, Hyperlipidemia, Hypertension Patient has suicidal ideation: No Patient has homicidal ideation: No - Past Medical History Cardiac Medical History: Reports: Hx Hypertension Denies: Hx Heart Attack, Hx Hypercholesterolemia, Hx Peripheral Vascular Disease Pulmonary Medical History: Reports: Hx Asthma Denies: Hx Tuberculosis Endocrine Medical History: Reports: Hx Diabetes Mellitus Type 1, Hx Diabetes Mellitus Type 2 Renal/ Medical History: Reports: Hx Kidney Stones. Denies: Hx Peritoneal Dialysis GI Medical History: Reports: Hx Gastroesophageal Reflux Disease Musculoskeletal Medical History: Reports Hx Arthritis - chronic back pain Skin Medical History: Reports Hx MRSA Psychiatric Medical History: Reports: Hx Anxiety, Hx Attention Deficit Hyperactivity Disorder, Hx Bipolar Disorder, Hx Depression, Hx Schizophrenia Infectious Medical History: Reports: Hx MRSA Past Surgical History: Reports: Hx Cholecystectomy, Hx Orthopedic Surgery - r pinkie, L leg fx as child - Immunizations Hx Diphtheria, Pertussis, Tetanus Vaccination: Yes - 11/01/12 Vertical Provider Document - CONSTITUTIONAL Agree With Documented VS: Yes - INFECTION CONTROL TRAVEL OUTSIDE OF THE [place] IN LAST 30 DAYS: No - HEENT HEENT: Atraumatic, Conjuctival Injection, Normocephalic, PERRLA - NECK Neck: Normal Inspection - RESPIRATORY Respiratory: Breath Sounds Normal - CARDIOVASCULAR Pulses: Normal: Brachial, Radial, Carotid, Femoral - GI/ABDOMEN Gastrointestinal: Abdomen Soft, Abdomen Non-Tender Course - Vital Signs Vital signs: Temp Pulse Resp BP Pulse Ox 97.7 F 82 18 117/69 97 10/10/19 16:25 10/10/19 16:25 10/10/19 16:25 10/10/19 16:25 10/10/19 16:25 Procedures - Incision and Drainage Right Posterior Head Type: Simple Anesthetic type: 1% Lidocaine Blade size: Other - The patient refused the procedure. Incision Method: Incision made with needle Notes: 10/10/19 16:52 Patient refused up his procedure Discharge - Discharge Clinical Impression: MRSA infection Cellulitis Qualifiers: Site of cellulitis: head Qualified Code(s): L03.811 - Cellulitis of head [any part, except face] Condition: Fair Disposition: AGAINST MEDICAL ADVICE Instructions: Abscess ([facility]) Referrals: SOY ARMSTRONG MD [Primary Care Provider] - Follow up as needed
== END 2019-10-10 16:51 | disposition left against medical advice (07) ==
LOC: ER 16:20
DX: A49.02 Methicillin resistant Staphylococcus aureus infection, unspecified site (principal); L03.811 Cellulitis of head [any part, except face]; E11.9 Type 2 diabetes mellitus without complications; I10 Essential (primary) hypertension; J45.909 Unspecified asthma, uncomplicated; Z72.0 Tobacco use; Z53.29 Procedure and treatment not carried out because of patient's decision for other reasons
CPT/HCPCS: 99283

== ENCOUNTER 2019-11-27 12:11 | Emergency (ER) | payer MEDICAID ==
--- NOTE | 2019-11-27 13:01 | ER Document Report ---
ED Medical Screen (RME) - General Chief Complaint: Abscess Stated Complaint: POSSIBLE ABSCESS Time Seen by Provider: 11/27/19 12:59 Primary Care Provider: SOY ARMSTRONG MD [Primary Care Provider] - Follow up as needed Mode of Arrival: Ambulatory Information source: Patient Notes: 43-year-old male presented to ED for abscesses to multiple areas. He states he has a history of MRSA. He has abscesses to both axilla left elbow which is large red and hot to the touch and the chest area which is red and draining. He is alert oriented respirations regular nonlabored speaking in full sentences. He states he has had multiple abscesses in the past some of which had to be opened up by the surgeons. I have greeted and performed a rapid initial assessment of this patient. A comprehensive ED assessment and evaluation of the patient, analysis of test results and completion of medical decision making process will be conducted by an additional ED providers. TRAVEL OUTSIDE OF THE [place] IN LAST 30 DAYS: No - Related Data Allergies/Adverse Reactions: sulfamethoxazole [From Bactrim] Allergy (Severe, Verified 11/27/19 12:50) Swelling of Throat trimethoprim [From Bactrim] Allergy (Severe, Verified 11/27/19 12:50) Swelling of Throat ketorolac tromethamine [From Toradol] Allergy (Verified 11/27/19 12:50) Penicillins Allergy (Verified 11/27/19 12:50) codeine [Codeine] Adverse Reaction (Verified 11/27/19 12:50) Nausea tramadol Adverse Reaction (Verified 11/27/19 12:50) tramadol HCl [From Ultram] Adverse Reaction (Verified 11/27/19 12:50) Nausea Home Medications: metformin. gerd. xanax. adderall Past Medical History - Social History Chew tobacco use (# tins/day): Yes Frequency of alcohol use: None Drug Abuse: None Family history: Reviewed & Not Pertinent - Past Medical History Cardiac Medical History: Reports: Hx Hypertension Denies: Hx Heart Attack, Hx Hypercholesterolemia, Hx Peripheral Vascular Disease Pulmonary Medical History: Reports: Hx Asthma Denies: Hx Tuberculosis Endocrine Medical History: Reports: Hx Diabetes Mellitus Type 1, Hx Diabetes Mellitus Type 2 Renal/ Medical History: Reports: Hx Kidney Stones. Denies: Hx Peritoneal Dialysis GI Medical History: Reports: Hx Gastroesophageal Reflux Disease Musculoskeltal Medical History: Reports Hx Arthritis - chronic back pain Skin Medical History: Reports Hx MRSA Psychiatric Medical History: Reports: Hx Anxiety, Hx Attention Deficit Hyperactivity Disorder, Hx Bipolar Disorder, Hx Depression, Hx Schizophrenia Infectious Medical History: Reports: Hx MRSA Past Surgical History: Reports: Hx Cholecystectomy, Hx Orthopedic Surgery - r pinkie, L leg fx as child - Immunizations Hx Diphtheria, Pertussis, Tetanus Vaccination: Yes - 11/01/12 Physical Exam - Vital signs Vitals: Temp Pulse Resp BP Pulse Ox 99.0 F 90 16 112/82 97 11/27/19 12:16 11/27/19 12:16 11/27/19 12:16 11/27/19 12:16 11/27/19 12:16 Course - Vital Signs Vital signs: Temp Pulse Resp BP Pulse Ox 99.0 F 90 16 112/82 97 11/27/19 12:51 11/27/19 12:16 11/27/19 12:16 11/27/19 12:16 11/27/19 12:16 Doctor's Discharge - Discharge Referrals: SOY ARMSTRONG MD [Primary Care Provider] - Follow up as needed
[2019-11-27] MEDS ORDERED: NORMAL SALINE 1000 ML 1,000 ML IV ONE (13:02)
[2019-11-27] MEDS ORDERED: OXYCODONE-ACETAMINOPHEN 5-325 MG TABLET PO ONE (13:03)
[2019-11-27 13:35] LABS: ABSOLUTE BASOPHILS # (AUTO) 0.1 10^3/uL (0.0-0.2); ABSOLUTE EOSINOPHILS # (AUTO) 0.1 10^3/uL (0.0-0.6); ABSOLUTE LYMPHOCYTES (AUTO) 3.1 10^3/uL (0.5-4.7); ABSOLUTE MONOCYTES (AUTO) 0.8 10^3/uL (0.1-1.4); ABSOLUTE NEUT (AUTO) 7.2 10^3/uL (1.7-8.2); BASOPHILS % (AUTO) 0.9 % (0-2); EOSINOPHILS % (AUTO) 1.3 % (0-6); HEMATOCRIT 40.7 % (37.9-51.0); HEMOGLOBIN 14.3 g/dL (13.5-17.0); LYMPHOCYTES % (AUTO) 27.6 % (13-45); MEAN CORPUSCULAR HEMOGLOBIN 29.5 pg (27.0-33.4); MEAN CORPUSCULAR VOLUME 84 fl (80-97); PLATELET COUNT 255 10^3/uL (150-450); RED BLOOD COUNT 4.83 10^6/uL (4.35-5.55); RED CELL DISTRIBUTION WIDTH 13.7 % (11.5-14.0); SEGMENTED NEUTROPHILS % (AUTO) 63.2 % (42-78); TOTAL CELLS COUNTED % (AUTO) 100 %; WHITE BLOOD COUNT 11.3 10^3/uL (4.0-10.5)
--- NOTE | 2019-11-27 13:52 | RADIOLOGY REPORT (SQ) ---
EXAM DESCRIPTION: ELBOW LEFT OVER 2 VIEWS IMAGES COMPLETED DATE/TIME: 11/27/2019 1:40 pm REASON FOR STUDY: Red swollen abscess to the elbow area COMPARISON: None. NUMBER OF VIEWS: Four views. TECHNIQUE: AP, lateral, and both oblique radiographic images acquired of the left elbow. LIMITATIONS: None. FINDINGS: MINERALIZATION: Normal. BONES: No acute fracture or dislocation. No worrisome bone lesions. JOINT: No effusion. SOFT TISSUES: Mild soft tissue swelling and edema about the elbow. OTHER: No other significant finding. IMPRESSION: No evidence of acute bony abnormality. Mild edema about the elbow. TECHNICAL DOCUMENTATION: JOB ID: [id number] [employer]- All Rights Reserved Reading location - IP/workstation name: [email or web address]
[2019-11-27 13:53] LABS: ALBUMIN 4.1 g/dL (3.5-5.0); ALKALINE PHOSPHATASE 53 U/L (38-126); ANION GAP 9 (5-19); ASPARTATE AMINO TRANSFERASE 18 U/L (17-59); BILIRUBIN,TOTAL 1.5 mg/dL (0.2-1.3); BLOOD UREA NITROGEN 18 mg/dL (7-20); CALCIUM 9.1 mg/dL (8.4-10.2); CARBON DIOXIDE 28 mmol/L (22-30); CHLORIDE 102 mmol/L (98-107); GLUCOSE 125 mg/dL (75-110); POTASSIUM 4.3 mmol/L (3.6-5.0); TOTAL PROTEIN 7.1 g/dL (6.3-8.2)
[2019-11-27] MEDS ORDERED: CLINDAMYCIN 600 MG/D5W RTU 600 MG/50 ML RTUPB IV ONE (14:19)
[2019-11-27] MEDS ORDERED: HYDROMORPHONE HCL INJ/PF 2 MG/ML AMPULE IV ONE ×2 (14:19→15:25)
[2019-11-27] MEDS ORDERED: LIDOCAINE 1% INJ-PF (10 MG/ML) 30 ML SDV INJ ONE (14:20)
--- NOTE | 2019-11-27 14:22 | ER Document Report ---
HPI - HPI Patient complains to provider of: Abscess Time Seen by Provider: 11/27/19 14:15 Onset: Other - 2 days Onset/Duration: Worse Quality of pain: Sharp Pain Level: 5 Context: Patient presents with multiple abscesses to the axilla, one to the anterior chest and one to the left arm. Patient states the abscess to the chest and axilla have been there for a week and the abscess to the elbow has only been there for 2 days. Patient denies any fever. Patient does have a history of MRSA as well as diabetes. Associated Symptoms: denies: Fever, Vomiting Exacerbated by: Denies Relieved by: Denies Similar symptoms previously: Yes Recently seen / treated by doctor: No - ROS ROS below otherwise negative: Yes Systems Reviewed and Negative: Yes All other systems reviewed and negative - CONSTITUTIONAL Constitutional: DENIES: Fever, Chills - NEURO Neurology: DENIES: Headache - GASTROINTESTINAL Gastrointestinal: DENIES: Nausea - REPRODUCTIVE Reproductive: DENIES: : - MUSCULOSKELETAL Musculoskeletal: REPORTS: Extremity pain - DERM Skin Color: Erythema Notes: Multiple abscesses Past Medical History - General Information source: Patient - Social History Smoking Status: Current Every Day Smoker Chew tobacco use (# tins/day): Yes Frequency of alcohol use: None Drug Abuse: None Lives with: Family Family History: Reviewed & Not Pertinent, CAD, Hyperlipidemia, Hypertension Patient has homicidal ideation: No - Past Medical History Cardiac Medical History: Reports: Hx Hypertension Denies: Hx Heart Attack, Hx Hypercholesterolemia, Hx Peripheral Vascular Disease Pulmonary Medical History: Reports: Hx Asthma Denies: Hx Tuberculosis Endocrine Medical History: Reports: Hx Diabetes Mellitus Type 1, Hx Diabetes Mellitus Type 2 Renal/ Medical History: Reports: Hx Kidney Stones. Denies: Hx Peritoneal Dialysis GI Medical History: Reports: Hx Gastroesophageal Reflux Disease Musculoskeletal Medical History: Reports Hx Arthritis - chronic back pain Skin Medical History: Reports Hx MRSA Psychiatric Medical History: Reports: Hx Anxiety, Hx Attention Deficit Hyperactivity Disorder, Hx Bipolar Disorder, Hx Depression, Hx Schizophrenia Infectious Medical History: Reports: Hx MRSA Past Surgical History: Reports: Hx Cholecystectomy, Hx Orthopedic Surgery - r pinkie, L leg fx as child - Immunizations Hx Diphtheria, Pertussis, Tetanus Vaccination: Yes - 11/01/12 Vertical Provider Document - CONSTITUTIONAL Agree With Documented VS: Yes Exam Limitations: No Limitations General Appearance: WD/WN, No Apparent Distress - INFECTION CONTROL TRAVEL OUTSIDE OF THE [place] IN LAST 30 DAYS: No - HEENT HEENT: Atraumatic, Normocephalic - NECK Neck: Normal Inspection, Supple. negative: Lymphadenopathy-Left, Lymphadenopathy-Right - RESPIRATORY Respiratory: Breath Sounds Normal, No Respiratory Distress - CARDIOVASCULAR Cardiovascular: Regular Rate, Regular Rhythm, No Murmur Pulses: Normal: Radial - BACK Back: Normal Inspection - MUSCULOSKELETAL/EXTREMETIES Musculoskeletal/Extremeties: MAEW, FROM - NEURO Level of Consciousness: Awake, Alert, Appropriate Motor/Sensory: No Motor Deficit - DERM Integumentary: Warm, Dry, Abscess Notes: Patient with multiple abscesses. Patient with tender indurated lesion to bilat eral axilla measuring about 1 cm diameter, patient with spontaneously draining crusted lesion to the anterior chest wall, no fluctuance and no surrounding erythema to this lesion. Patient with an additional erythematous, tender abscess to the lateral aspect of the left elbow. Patient with full range of motion to the left elbow, no concern for joint involvement at this time. Course - Re-evaluation Re-evalutation: 11/27/19 15:25 Patient presents with multiple small axillary abscesses and a larger abscess to the lateral aspect of the left elbow with no joint involvement. Patient without any fever. Patient with minimal leukocytosis. Patient is a diabetic and has a history of MRSA. Incision and drainage procedure was performed on the left elbow in addition to I&D with needle to the small axillary abscesses. Patient encouraged to return in 2 days for a wound recheck. Discussed worsening symptoms that patient should return immediately for. Patient verbalized understanding and is agreeable with this plan of care. - Vital Signs Vital signs: Temp Pulse Resp BP Pulse Ox 99.0 F 90 16 112/82 97 11/27/19 12:51 11/27/19 12:16 11/27/19 12:16 11/27/19 12:16 11/27/19 12:16 - Laboratory Result Diagrams: 11/27/19 13:28 11/27/19 13:28 Laboratory results interpreted by me: 11/27/19 11/27/19 13:28 13:28 WBC 11.3 H Glucose 125 H Total Bilirubin 1.5 H 11/27/19 15:25 Labs- Entire Visit 11/27/19 11/27/19 13:28 13:28 WBC 11.3 H RBC 4.83 Hgb 14.3 Hct 40.7 MCV 84 MCH 29.5 MCHC 35.0 RDW 13.7 Plt Count 255 Lymph % (Auto) 27.6 [place] % (Auto) 7.0 Eos % (Auto) 1.3 Baso % (Auto) 0.9 Absolute Neuts (auto) 7.2 Absolute Lymphs (auto) 3.1 Absolute Monos (auto) 0.8 Absolute Eos (auto) 0.1 Absolute Basos (auto) 0.1 Seg Neutrophils % 63.2 Sodium 139.3 Potassium 4.3 Chloride 102 Carbon Dioxide 28 Anion Gap 9 BUN 18 Creatinine 0.76 Est GFR ( Amer) > 60 Est GFR (MDRD) Non-Af > 60 Glucose 125 H Calcium 9.1 Total Bilirubin 1.5 H Direct Bilirubin 0.0 Neonat Total Bilirubin Not Reportable Neonat Direct Bilirubin Not Reportable Neonat Indirect Bili Not Reportable AST 18 ALT 17 Alkaline Phosphatase 53 Total Protein 7.1 Albumin 4.1 - Diagnostic Test Radiology reviewed: Reports reviewed Procedures - Incision and Drainage Right Arm Type: Simple Incision Method: Incision made with needle Amount/type of drainage: Small amount of purulent drainage to the right axillary abscess Left Upper Arm Type: Simple Incision Method: Incision made with needle Amount/type of drainage: Moderate amount of purulent drainage from 2 abscesses to the left axilla Notes: 11/27/19 18:25 Abscesses measure about 1 cm diameter Left Elbow Type: Simple Anesthetic type: 1% Lidocaine Blade size: 11 I&D procedure: Betadine prep applied Incision Method: Incision made by scalpel Amount/type of drainage: Moderate amount of purulent drainage Discharge - Discharge Clinical Impression: Abscess, Encounter for incision and drainage procedure Condition: Stable Disposition: HOME, SELF-CARE Instructions: Abscess ([facility]), Clindamycin ([facility]), Oral Narcotic Medication ([facility]), Post Incision and Drainage, Warm Packs ([facility]) Additional Instructions: Return immediately for any new or worsening symptoms Followup with your primary care provider, call tomorrow to make a followup appointment Return in 2 days for wound recheck, return immediately for worsening symptoms. Get your prescription filled and take as directed. Prescriptions: Mupirocin [Bactroban 2% Ointment 22 gm] 1 applic TP TID #22 gm Clindamycin HCl 300 mg PO QID #28 capsule Oxycodone HCl/Acetaminophen [Percocet 5-325 mg Tablet] 1 tab PO ASDIR PRN #15 tablet PRN Reason: Referrals: SOY ARMSTRONG MD [Primary Care Provider] - Follow up as needed [facility] [Provider Group] - Follow up as needed
[2019-11-27 16:03] VITALS: BP 134/91
== END 2019-11-27 16:07 | disposition home or self-care (01) ==
LOC: ER 12:11
DX: L02.412 Cutaneous abscess of left axilla (principal); L02.411 Cutaneous abscess of right axilla; L02.414 Cutaneous abscess of left upper limb; L02.213 Cutaneous abscess of chest wall; E11.9 Type 2 diabetes mellitus without complications; F17.200 Nicotine dependence, unspecified, uncomplicated; I10 Essential (primary) hypertension; J45.909 Unspecified asthma, uncomplicated; Z86.14 Personal history of Methicillin resistant Staphylococcus aureus infection
CPT/HCPCS: 99283; 96361; 96375; 96365; 36415; 87040; 85025; 80053; 73080; 10061; S0077; J3490; J1170; J7030

== ENCOUNTER 2019-12-30 18:56 | Emergency (ER) | payer MEDICAID ==
[2019-12-30] MEDS ORDERED: CLINDAMYCIN 600 MG/D5W RTU 600 MG/50 ML RTUPB IV ONE ×2 (19:24→22:45)
[2019-12-30] MEDS ORDERED: ACETAMINOPHEN 325 MG TABLET PO ONE (19:25)
--- NOTE | 2019-12-30 19:27 | ER Document Report ---
ED Medical Screen (RME) - General Chief Complaint: Abscess Stated Complaint: ABSCESS/HEAD AND LEFT SHOULDER Time Seen by Provider: 12/30/19 19:18 Primary Care Provider: SOY ARMSTRONG MD [Primary Care Provider] - Follow up as needed Mode of Arrival: Ambulatory Information source: Patient Notes: HPI;-44year-old male history of previous abscesses presents the emergency room complaining of a worsening abscess to his left forehead and left shoulder these had for the past week. States he has been taking leftover Cipro and ibuprofen without relief. States they started draining green pus today. The one on the shoulder has not ruptured yet history of previous I&D's. PE: Alert and oriented x3. Not in distress noted. There is a 4 cm abscess to the left forehead that is draining green pustulant drainage. There is a 3 cm fluctuant abscess to the left shoulder erythematous warm and tender to palpation but no active discharge or draining noted. I have greeted and performed a rapid initial assessment of this patient. A comprehensive ED assessment and evaluation of the patient, analysis of test results and completion of the medical decision making process will be conducted by additional ED providers. I have specifically instructed the patient or family members with the patient to immediately return to any nursing staff should anything change in the patient's condition or with their chief complaint. TRAVEL OUTSIDE OF THE [place] IN LAST 30 DAYS: No - Related Data Allergies/Adverse Reactions: sulfamethoxazole [From Bactrim] Allergy (Severe, Verified 12/30/19 19:14) Swelling of Throat trimethoprim [From Bactrim] Allergy (Severe, Verified 12/30/19 19:14) Swelling of Throat ketorolac tromethamine [From Toradol] Allergy (Verified 12/30/19 19:14) Penicillins Allergy (Verified 12/30/19 19:14) codeine [Codeine] Adverse Reaction (Verified 12/30/19 19:14) Nausea tramadol Adverse Reaction (Verified 12/30/19 19:14) tramadol HCl [From Ultram] Adverse Reaction (Verified 12/30/19 19:14) Nausea Past Medical History - Social History Chew tobacco use (# tins/day): Yes Frequency of alcohol use: None Drug Abuse: None Family history: Reviewed & Not Pertinent - Past Medical History Cardiac Medical History: Reports: Hx Hypertension Denies: Hx Heart Attack, Hx Hypercholesterolemia, Hx Peripheral Vascular Disease Pulmonary Medical History: Reports: Hx Asthma Denies: Hx Tuberculosis Endocrine Medical History: Reports: Hx Diabetes Mellitus Type 1, Hx Diabetes Mellitus Type 2 Renal/ Medical History: Reports: Hx Kidney Stones. Denies: Hx Peritoneal Dialysis GI Medical History: Reports: Hx Gastroesophageal Reflux Disease Musculoskeltal Medical History: Reports Hx Arthritis - chronic back pain Skin Medical History: Reports Hx MRSA Psychiatric Medical History: Reports: Hx Anxiety, Hx Attention Deficit Hyperactivity Disorder, Hx Bipolar Disorder, Hx Depression, Hx Schizophrenia Infectious Medical History: Reports: Hx MRSA Past Surgical History: Reports: Hx Cholecystectomy, Hx Orthopedic Surgery - r pinkie, L leg fx as child - Immunizations Hx Diphtheria, Pertussis, Tetanus Vaccination: Yes - 11/01/12 Physical Exam - Vital signs Vitals: Temp Pulse Resp BP Pulse Ox 99.3 F 106 H 20 174/91 H 98 12/30/19 19:00 12/30/19 19:00 12/30/19 19:00 12/30/19 19:00 12/30/19 19:00 Course - Vital Signs Vital signs: Temp Pulse Resp BP Pulse Ox 99.3 F 106 H 20 174/91 H 98 12/30/19 19:14 12/30/19 19:00 12/30/19 19:00 12/30/19 19:00 12/30/19 19:00 Doctor's Discharge - Discharge Referrals: SOY ARMSTRONG MD [Primary Care Provider] - Follow up as needed
[2019-12-30 20:01] LABS: ABSOLUTE BASOPHILS # (AUTO) 0.1 10^3/uL (0.0-0.2); ABSOLUTE EOSINOPHILS # (AUTO) 0.2 10^3/uL (0.0-0.6); ABSOLUTE LYMPHOCYTES (AUTO) 2.4 10^3/uL (0.5-4.7); ABSOLUTE MONOCYTES (AUTO) 0.6 10^3/uL (0.1-1.4); ABSOLUTE NEUT (AUTO) 8.3 10^3/uL (1.7-8.2); BASOPHILS % (AUTO) 0.8 % (0-2); HEMATOCRIT 41.7 % (37.9-51.0); HEMOGLOBIN 14.5 g/dL (13.5-17.0); LYMPHOCYTES % (AUTO) 20.6 % (13-45); MEAN CORPUSCULAR HGB CONC 34.8 g/dL (32.0-36.0); MEAN CORPUSCULAR VOLUME 83 fl (80-97); MONOCYTES % (AUTO) 4.8 % (3-13); PLATELET COUNT 193 10^3/uL (150-450); RED BLOOD COUNT 5.01 10^6/uL (4.35-5.55); RED CELL DISTRIBUTION WIDTH 13.5 % (11.5-14.0); SEGMENTED NEUTROPHILS % (AUTO) 71.8 % (42-78); TOTAL CELLS COUNTED % (AUTO) 100 %; WHITE BLOOD COUNT 11.5 10^3/uL (4.0-10.5)
[2019-12-30 20:20] LABS: ALBUMIN 4.1 g/dL (3.5-5.0); ALKALINE PHOSPHATASE 53 U/L (38-126); ANION GAP 11 (5-19); ASPARTATE AMINO TRANSFERASE 19 U/L (17-59); BILIRUBIN,TOTAL 0.8 mg/dL (0.2-1.3); BLOOD UREA NITROGEN 7 mg/dL (7-20); CALCIUM 9.4 mg/dL (8.4-10.2); CARBON DIOXIDE 27 mmol/L (22-30); CHLORIDE 100 mmol/L (98-107); GLUCOSE 196 mg/dL (75-110); POTASSIUM 3.7 mmol/L (3.6-5.0)
[2019-12-30] MEDS ORDERED: RINGERS SOLUTION,LACTATED 1,000 ML IV ONE (22:26)
[2019-12-30] MEDS ORDERED: IBUPROFEN 600 MG TABLET PO ONE (22:32)
--- NOTE | 2019-12-30 22:41 | ER Document Report ---
ED General - General Chief Complaint: Abscess Stated Complaint: ABSCESS/HEAD AND LEFT SHOULDER Time Seen by Provider: 12/30/19 19:18 Primary Care Provider: SOY ARMSTRONG MD [Primary Care Provider] - Follow up as needed Mode of Arrival: Ambulatory TRAVEL OUTSIDE OF THE [place] IN LAST 30 DAYS: No - HPI Notes: 44-year-old male history of htn diabetes noncompliant with meds, prior extensive neck abscess requiring surgical debridement presents with abscess to left forehead for 1 week and left shoulder for 5 days. Left shoulder abscess hurts into patient's left posterior neck. Patient had access to Cipro and has taken a few doses without improvement. Patient denies fever, vomiting, headache, change in vision/speech/gait, weakness/numbness, HIV, nuchal rigidity - Related Data Allergies/Adverse Reactions: sulfamethoxazole [From Bactrim] Allergy (Severe, Verified 12/30/19 23:49) Swelling of Throat trimethoprim [From Bactrim] Allergy (Severe, Verified 12/30/19 23:49) Swelling of Throat ketorolac tromethamine [From Toradol] Allergy (Verified 12/30/19 23:49) Penicillins Allergy (Verified 12/30/19 23:49) codeine [Codeine] Adverse Reaction (Verified 12/30/19 23:49) Nausea tramadol Adverse Reaction (Verified 12/30/19 23:49) tramadol HCl [From Ultram] Adverse Reaction (Verified 12/30/19 23:49) Nausea Past Medical History - General Information source: Patient - Social History Smoking Status: Former Smoker Chew tobacco use (# tins/day): Yes Frequency of alcohol use: None Drug Abuse: None Family History: Reviewed & Not Pertinent, CAD, Hyperlipidemia, Hypertension Patient has homicidal ideation: No - Past Medical History Cardiac Medical History: Reports: Hx Hypertension Denies: Hx Heart Attack, Hx Hypercholesterolemia, Hx Peripheral Vascular Disease Pulmonary Medical History: Reports: Hx Asthma Denies: Hx Tuberculosis Endocrine Medical History: Reports: Hx Diabetes Mellitus Type 1, Hx Diabetes Mellitus Type 2 Renal/ Medical History: Reports: Hx Kidney Stones. Denies: Hx Peritoneal Dialysis GI Medical History: Reports: Hx Gastroesophageal Reflux Disease Musculoskeletal Medical History: Reports Hx Arthritis - chronic back pain Skin Medical History: Reports Hx MRSA Psychiatric Medical History: Reports: Hx Anxiety, Hx Attention Deficit Hyperactivity Disorder, Hx Bipolar Disorder, Hx Depression, Hx Schizophrenia Infectious Medical History: Reports: Hx MRSA Past Surgical History: Reports: Hx Cholecystectomy, Hx Orthopedic Surgery - r pinkie, L leg fx as child - Immunizations Hx Diphtheria, Pertussis, Tetanus Vaccination: Yes - 11/01/12 Review of Systems - Review of Systems Notes: REVIEW OF SYSTEMS: CONSTITUTIONAL : Denies fever, chills, or sweats. EENT: Denies recent cold/sinus symptoms, denies throat pain CARDIOVASCULAR: Denies chest pain, TINO RESPIRATORY: Denies cough, denies shortness of breath. GASTROINTESTINAL: Denies abdominal pain, nausea/vomiting. GENITOURINARY: Denies difficulty urinating, painful urination. MUSCULOSKELETAL: + neck pain, back pain. SKIN: + rash or +skin lesions. HEMATOLOGIC : Denies easy bruising or bleeding. LYMPHATIC: Denies swollen, enlarged glands. NEUROLOGICAL: Denies headache, denies change in gait. PSYCHIATRIC: Denies anxiety or stress or depression. Physical Exam - Vital signs Vitals: Temp Pulse Resp BP Pulse Ox 99.3 F 106 H 20 174/91 H 98 12/30/19 19:00 12/30/19 19:00 12/30/19 19:00 12/30/19 19:00 12/30/19 19:00 - Notes Notes: PHYSICAL EXAMINATION: GENERAL: Well-appearing, well-nourished and in no acute distress. HEAD: Atraumatic, normocephalic. Left forehead approximately 3 x 3 cm open draining abscess with yellow fluid EYES: Pupils equal round and appropriate constriction, sclera anicteric, conjunctiva are normal. ENT: nares patent, dry mucous membranes. NECK: Normal range of motion, supple without lymphadenopathy, normal inspection but tenderness to left posterior lateral neck contiguous with left shoulder abscess approximately 3 x 3 cm not draining with mild surrounding erythema LUNGS: Normal respiratory rate and effort, speaking in full sentences HEART: Regular rate, no lower extremity edema EXTREMITIES: Normal range of motion, no pitting or edema. No cyanosis. NEUROLOGICAL: Awake, alert, conversing appropriately, moves all extremities spontaneously. PSYCH: Normal mood, normal affect. SKIN: Warm, Dry, normal turgor Course - Re-evaluation Re-evalutation: 12/30/19 22:43 Abscess to shoulder with widespread tenderness, given extent of previous abscess requiring surgical debridement will obtain CT of head neck and chest to rule out extensive spread and deep tissue layers pain. If no spread then will I&D myself. Patient hyperglycemic without anion gap, patient noncompliant with diabetes meds mildly elevated lactate which was ordered in triage to expedite c are, but patient not meeting SIRS criteria and lactate likely secondary to mild dehydration from uncontrolled diabetes. Will give fluid bolus and recheck lactate. Patient otherwise very well-appearing, stable pending results of work- up. 12/31/19 04:05 Lactate normalized with hydration, no surgical findings on CT, although CT did not showed abscess given clinical exam performed I&D which did express approximately 5 mls of purulent fluid from shoulder abscess. Also performed I&D on left scalp abscess, although was draining somewhat broke up loculations and assisted in draining more completely. patient feels greatly improved, ready for discharge on antibiotics. Given extensive return to ED precautions which patient demonstrated understanding of. Counseled patient on compliance with diabetes medications. 12/31/19 07:15 - Vital Signs Vital signs: Temp Pulse Resp BP Pulse Ox 98.8 F 92 16 142/88 H 99 12/31/19 04:23 12/31/19 04:23 12/31/19 04:23 12/31/19 04:23 12/31/19 04:23 - Laboratory Result Diagrams: 12/30/19 19:40 12/30/19 19:40 Laboratory results interpreted by me: 12/30/19 12/30/19 12/30/19 19:40 19:40 19:40 WBC 11.5 H Absolute Neuts (auto) 8.3 H Glucose 196 H Lactic Acid 2.2 H Discharge - Discharge Clinical Impression: Abscess, Scalp abscess Condition: Stable Disposition: HOME, SELF-CARE Additional Instructions: Abscess You have an abscess (boil). This a pus-forming infection, usually due to staph. Some boils may be left to drain on their own, but most require lancing. From the time the tender lump first appears, it may be three or four days before the abscess is ready to nataliia. Local heat and rest help at this stage of treatment. An antibiotic may prevent spread of the infection. Once the abscess is opened, packing may be placed into it. This is done so pus is not sealed inside by premature closure of the cavity. The packing will be removed at your follow-up visit or you may be advised to remove it yourself at home. Sometimes this packing must be replaced a few times during healing. The wound will heal with surprisingly little scar. Depending on the size and location of an abscess, healing can take one to four weeks. You may shower and wash the area around the incision site two or three times a day. Antibiotics may be prescribed, but are usually not necessary after an abscess has been drained. If you develop fever, chilling, worsening pain, or increasing swelling in the area, call the doctor or return immediately. Cellulitis You have an infection of your skin and underlying soft tissues called cellulitis. This is due to bacteria, which can enter through any break in the skin, or even through an irritated hair follicle. Untreated, cellulitis will usually worsen. Antibiotics are required. Usually, warm packs or warm soaks, and elevation of the infected area are recommended. You should start getting better within 24 to 36 hours. Most infections respond quickly to the right medication. Follow-up care is important, however, to check for abscess (boil) formation, unsuspected foreign body, or resistant infection. If you develop fever, chills, or if the area of infection is becoming rapidly more swollen or painful, call the doctor at once. Diabetes You have an abnormally high blood sugar, suspicious for diabetes. All diabetics should follow a diet designed to control the blood sugar. Overweight diabetics should exercise regularly and lose weight. Home testing of blood sugars or urine sugar is required. Diabetic teaching is available to help you figure insulin doses and monitor the blood sugar. Call the physician if there is faintness, excess sleepiness, or very rapid breathing. If hypoglycemia (LOW blood sugar) develops, symptoms are shakiness, weakness, sweating, and confusion. In this case, you should eat or drink someth ing with sugar at once. Return to the ED immediately if you have fever, worsening or spreading pain, or any other worsening or alarming symptoms. Follow-up with your primary doctor in 3 days for wound check. Take all antibiotics as prescribed. Your wound may not heal if you do not control your diabetes, please take your diabetes medications as prescribed. Prescriptions: Doxycycline Monohydrate 100 mg PO BID #20 capsule Referrals: SOY ARMSTRONG MD [Primary Care Provider] - Follow up as needed
[2019-12-31] MEDS ORDERED: MORPHINE SULFATE IR 15 MG TABLET PO ONE
--- NOTE | 2019-12-31 00:57 | RADIOLOGY REPORT (SQ) ---
EXAM: CT Head With Intravenous Contrast EXAM DATE/TIME: 12/31/2019 12:13 am CLINICAL HISTORY: The patient is 44 years old and is Male; L forehead + L shoulder abscesses r/o contiguity TECHNIQUE: Axial computed tomography images of the head/brain with intravenous contrast. Sagittal and coronal reformatted images were created and reviewed. This CT exam was performed using one or more of the following dose reduction techniques: automated exposure control, adjustment of the mA and/or kV according to patient size, and/or use of iterative reconstruction technique. COMPARISON: CT brain from 12/27/2016 FINDINGS: BRAIN: Unremarkable. No obvious signs of acute infarct. No abnormal enhancement identified. No evidence of intracranial mass. VENTRICLES: Unremarkable. No ventriculomegaly. BONES/JOINTS: Old bilateral nasal bone fractures. No acute fractures visualized. No osseous erosion. SOFT TISSUES: There is focal soft tissue swelling of the left frontal scalp near the vertex. A BB is in place on the skin at this level. This may represent a phlegmon. However, there is no discrete fluid collection visualized to suggest a drainable abscess at this level. SINUSES: Unremarkable as visualized. No acute sinusitis. MASTOID AIR CELLS: Unremarkable as visualized. No mastoid effusion. IMPRESSION: Focal soft tissue swelling of the left frontal scalp near the vertex. This may represent a phlegmon. However, there is no discrete fluid collection visualized to suggest a drainable abscess at this level. EXAM: CT Neck With Intravenous Contrast EXAM DATE/TIME: 12/31/2019 12:13 am CLINICAL HISTORY: The patient is 44 years old and is Male; L forehead + L shoulder abscesses r/o contiguity TECHNIQUE: Axial computed tomography images of the neck with intravenous contrast. Sagittal and coronal reformatted images were created and reviewed. This CT exam was performed using one or more of the following dose reduction techniques: automated exposure control, adjustment of the mA and/or kV according to patient size, and/or use of iterative reconstruction technique. COMPARISON: CT cervical spine from 12/27/2016 FINDINGS: OROPHARYNX: Unremarkable. No significant tonsillar enlargement. No peritonsillar abscess. HYPOPHARYNX: Unremarkable. LARYNX: Unremarkable. Normal epiglottis. TRACHEA: Unremarkable. RETROPHARYNGEAL SPACE: Unremarkable. SUBMANDIBULAR/PAROTID GLANDS: Unremarkable. Glands are normal in size. THYROID: Unremarkable. BONES/JOINTS: No acute fracture. SOFT TISSUES: Few small areas of subcutaneous stranding noted posteriorly in the neck. The appearance is suggestive of scarring. Otherwise, no evidence of significant inflammatory changes within the neck. Specifically, no inflammatory changes extending between the left forehead swelling and left shoulder subcutaneous inflammation. There is no fluid collection in the neck. VASCULATURE: No acute findings. LYMPH NODES: No significant lymph node enlargement. LUNG APICES: Unremarkable as visualized. IMPRESSION: No acute findings visualized in the neck. Specifically, there is no continuity between the left forehead soft tissue swelling and subcutaneous stranding at the left shoulder. EXAM: CT Chest With Intravenous Contrast EXAM DATE/TIME: 12/31/2019 12:13 am CLINICAL HISTORY: The patient is 44 years old and is Male; L forehead + L shoulder abscesses r/o contiguity TECHNIQUE: Axial computed tomography images of the chest with intravenous contrast. Sagittal and coronal reformatted images were created and reviewed. This CT exam was performed using one or more of the following dose reduction techniques: automated exposure control, adjustment of the mA and/or kV according to patient size, and/or use of iterative reconstruction technique. COMPARISON: No relevant prior studies available. FINDINGS: LIMITATIONS: The posterior lung bases are incompletely imaged. LUNGS: Minimal subsegmental atelectasis or scarring in the right middle lobe and lingula. No consolidation. No lung mass. No pulmonary edema. PLEURAL SPACE: No significant effusion. No pneumothorax. HEART: No significant cardiomegaly. No pericardial effusion. BONES/JOINTS: Mild degenerative changes of the spine. No acute fracture. SOFT TISSUES: A BB is in place at the superior aspect of the left shoulder, with focal subcutaneous stranding and skin thickening present at this level. There is no discrete fluid collection visualized to suggest a drainable abscess. VASCULATURE: Unremarkable. No thoracic aortic aneurysm. LYMPH NODES: No significant lymph node enlargement. IMPRESSION: Mild focal subcutaneous stranding and skin thickening about the upper aspect of the left shoulder. There is no discrete fluid collection visualized to suggest a drainable abscess.
[2019-12-31] MEDS ORDERED: LIDOCAINE 1%/EPINEPHRINE INJ 20 ML VIAL INJ ONE (02:42)
[2019-12-31 04:23] VITALS: BP 142/88
== END 2019-12-31 04:23 | disposition home or self-care (01) ==
LOC: ER 18:56
DX: L02.414 Cutaneous abscess of left upper limb (principal); L02.811 Cutaneous abscess of head [any part, except face]; L02.01 Cutaneous abscess of face; E11.9 Type 2 diabetes mellitus without complications; I10 Essential (primary) hypertension; J45.909 Unspecified asthma, uncomplicated; Z87.891 Personal history of nicotine dependence; Z86.14 Personal history of Methicillin resistant Staphylococcus aureus infection; Z88.1 Allergy status to other antibiotic agents; Z88.8 Allergy status to other drugs, medicaments and biological substances; Z88.0 Allergy status to penicillin
CPT/HCPCS: 99284; 96365; 36415; 87040; 87070; 87205; 83605; 85025; 80053; 70460; 70491; 71260; 10061; J3490 ×3; S0077; J7120; 87077

== ENCOUNTER 2020-01-04 12:03 | Emergency (ER) | payer MEDICAID ==
[2020-01-04 12:27] VITALS: BP 126/76
== END 2020-01-04 13:12 | disposition left against medical advice (07) ==
LOC: ER 12:03
DX: Z53.21 Procedure and treatment not carried out due to patient leaving prior to being seen by health care provider (principal)